=== PATIENT | male | born 1965 | race Caucasian/White ===

== ENCOUNTER 2021-01-04 07:38 | Outpatient (REF) | payer BC, SELFPAY ==
[2021-01-04 11:37] LABS: Estimated Average Glucose 91 mg/dL; Hemoglobin A1c % 4.8 %
[2021-01-04 11:42] LABS: Alanine Aminotransferase 23 U/L (0-40); Albumin Level 4.6 g/dL (3.5-5.0); Alkaline Phosphatase 49 U/L (39-117); Anion Gap 16 (12-20); Aspartate Amino Transferase 19 U/L (5-37); Bilirubin Total 0.9 mg/dL (0.0-1.0); Blood Urea Nitrogen 16 mg/dL (9-16); Carbon Dioxide 25 mmol/L (22-29); Chloride 102 mmol/L (96-108); Estimated Glomerular Filt Rate > 60; Glucose Fasting 103 mg/dL (60-99); Potassium 3.9 mmol/L (3.3-5.1); Sodium 139 mmol/L (135-145); Total Protein 7.3 g/dL (6.5-8.0)
== END 2021-01-04 07:39 | disposition home or self-care (01) ==
LOC: HO.HMGCLDS 07:38
PROVIDERS: PCP Internal Medicine; Visit Provider Internal Medicine
DX: R73.01 Impaired fasting glucose (principal)
CPT/HCPCS: 36415; 80053; 83036

== ENCOUNTER 2021-09-13 08:14 | Outpatient (REF) | payer BC, SELFPAY ==
[2021-09-13 11:51] LABS: Hematocrit 43.7 % (42.0-52.0); Hemoglobin 15.3 g/dl (14.0-18.0); Mean Corpuscular Hemoglobin 31.5 pg (27.0-33.0); Mean Corpuscular Volume 89.9 fL (80.0-98.0); Mean Platelet Volume 10.7 fL (9.4-12.4); Platelet Count 183 X10*3/uL (160-400); Red Blood Count 4.86 X10*6/uL (4.60-5.80); White Blood Count 6.2 X10*3/uL (4.8-10.8)
[2021-09-13 12:17] LABS: Alanine Aminotransferase 28 U/L (0-40); Albumin Level 4.5 g/dL (3.5-5.0); Alkaline Phosphatase 47 U/L (39-117); Anion Gap 14 (12-20); Aspartate Amino Transferase 19 U/L (5-37); Bilirubin Total 0.7 mg/dL (0.0-1.0); Blood Urea Nitrogen 11 mg/dL (9-16); Calcium 9.1 mg/dL (8.4-10.2); Carbon Dioxide 23 mmol/L (22-29); Chloride 106 mmol/L (96-108); Cholesterol 177 mg/dL; Estimated Glomerular Filt Rate > 60; Glucose Fasting 118 mg/dL (60-99); HDL Cholesterol 42 mg/dL; LDL Cholesterol Calculated 112 mg/dl; Sodium 139 mmol/L (135-145); Total Protein 7.3 g/dL (6.5-8.0); Triglycerides 118 mg/dL
[2021-09-13 12:40] LABS: TSH reflex Free T4 1.62 uIU/mL (0.32-4.0)
== END 2021-09-13 08:15 | disposition home or self-care (01) ==
LOC: HO.HMGCLDS 08:14
PROVIDERS: PCP Internal Medicine; Visit Provider Internal Medicine
DX: F41.1 Generalized anxiety disorder (principal); I10 Essential (primary) hypertension; R73.01 Impaired fasting glucose; Z98.890 Other specified postprocedural states
CPT/HCPCS: 36415; 80053; 80061; 84443; 85027

== ENCOUNTER 2021-11-11 14:15 | Outpatient (REF) | payer BC, SELFPAY ==
[2021-11-11 15:36] LABS: Hematocrit 43.7 % (42.0-52.0); Mean Corpuscular HGB Conc 34.3 g/dl (31.0-36.0); Mean Corpuscular Hemoglobin 31.2 pg (27.0-33.0); Mean Corpuscular Volume 90.9 fL (80.0-98.0); Mean Platelet Volume 9.7 fL (9.4-12.4); Platelet Count 206 X10*3/uL (160-400); Red Blood Count 4.81 X10*6/uL (4.60-5.80); Red Cell Distribution Width 12.8 % (11.0-16.0); White Blood Count 6.6 X10*3/uL (4.8-10.8)
[2021-11-11 15:58] LABS: Alanine Aminotransferase 29 U/L (0-40); Albumin Level 4.5 g/dL (3.5-5.0); Alkaline Phosphatase 65 U/L (39-117); Anion Gap 14 (12-20); Aspartate Amino Transferase 33 U/L (5-37); Bilirubin Total 0.6 mg/dL (0.0-1.0); Blood Urea Nitrogen 11 mg/dL (9-16); C Reactive Protein 3.62 mg/dL (< or = 0.50); Calcium 9.4 mg/dL (8.4-10.2); Carbon Dioxide 28 mmol/L (22-29); Chloride 103 mmol/L (96-108); Cholesterol 160 mg/dL; Estimated Glomerular Filt Rate > 60; Glucose Fasting 99 mg/dL (60-99); HDL Cholesterol 47 mg/dL; LDL Cholesterol Calculated 97 mg/dl; Potassium 4.8 mmol/L (3.3-5.1); Sodium 140 mmol/L (135-145); Total Protein 7.5 g/dL (6.5-8.0); Triglycerides 83 mg/dL
[2021-11-11 16:19] LABS: TSH reflex Free T4 2.34 uIU/mL (0.32-4.0)
== END 2021-11-11 14:16 | disposition home or self-care (01) ==
LOC: HO.LAB 14:15
PROVIDERS: PCP Internal Medicine; Referring Provider Internal Medicine; Visit Provider Nurse Practitioner
DX: Z00.00 Encounter for general adult medical examination without abnormal findings (principal); K52.9 Noninfective gastroenteritis and colitis, unspecified; K57.92 Diverticulitis of intestine, part unspecified, without perforation or abscess without bleeding; R19.7 Diarrhea, unspecified; I10 Essential (primary) hypertension; F41.1 Generalized anxiety disorder; R73.01 Impaired fasting glucose; Z98.890 Other specified postprocedural states
CPT/HCPCS: 36415; 80053; 80061; 81479; 82397; 83520; 84443; 85027; 86140; 88346; 88350

== ENCOUNTER 2021-11-12 09:42 | Outpatient (REF) | payer BC, SELFPAY ==
[2021-11-12 11:30] LABS: Appearance Urine CLEAR; Color Urine YELLOW; Glucose Urine UA NEG (NEG); Leukocyte Esterase Urine TRACE (NEG); Nitrite Urine NEG (NEG); PH 5.5 (5.0-8.0); Specific Gravity - Urine 1.025 (1.005-1.025); Urine Blood NEG (NEG); Urine Ketones NEG (NEG); Urine Protein NEG (NEG-TRACE)
[2021-11-12 11:44] LABS: RBC Urine 0 /HPF (0); Urine Talc Crystals TRACE /LPF; WBC Urine 0-2 /HPF (0-4)
[2021-11-12 12:15] LABS: CDiff Gene PCR NEGATIVE (Negative)
[2021-11-12 12:43] LABS: Leukocytes Stool Qualitative NEGATIVE (NEGATIVE)
== END 2021-11-12 09:43 | disposition home or self-care (01) ==
LOC: HO.HMGCLNP 09:42
PROVIDERS: Visit Provider Internal Medicine
DX: R19.7 Diarrhea, unspecified (principal)
CPT/HCPCS: 81001; 87045; 87046; 87493; 89055

== ENCOUNTER → 2021-11-26 08:03 | Outpatient (BNVA) | payer BC, SELFPAY | PROVIDERS: PCP Internal Medicine; Referring Provider Internal Medicine; Visit Provider Nurse Practitioner ==

== ENCOUNTER 2021-12-23 08:00 | Outpatient (REF) | payer BC, SELFPAY ==
[2021-12-23 12:08] LABS: Anion Gap 13 (12-20); Blood Urea Nitrogen 18 mg/dL (9-16); Calcium 9.8 mg/dL (8.4-10.2); Carbon Dioxide 26 mmol/L (22-29); Chloride 105 mmol/L (96-108); Estimated Glomerular Filt Rate > 60; Glucose Fasting 97 mg/dL (60-99); Potassium 4.2 mmol/L (3.3-5.1); Sodium 140 mmol/L (135-145)
[2021-12-23 12:09] LABS: Estimated Average Glucose 105 mg/dL; Hemoglobin A1c % 5.3 %
== END 2021-12-23 08:01 | disposition home or self-care (01) ==
LOC: HO.HMGCLDS 08:00
PROVIDERS: PCP Internal Medicine; Visit Provider Internal Medicine
DX: R73.9 Hyperglycemia, unspecified (principal)
CPT/HCPCS: 36415; 80048; 83036

== ENCOUNTER 2021-12-24 12:07 | Day surgery (SDC) | payer BC, SELFPAY ==
[2021-12-13 15:17] VITALS: BMI 26.0
--- NOTE | 2021-12-23 09:49 | HO.ANESPROP2 ---
Documented by User: Elizabeth Dickerson NP 12/23/21 09:50 HPI - Anesthesia Eval Consult details Narrative: 56yo M for Colonoscopy PMFSH Active Problems Active Problems: All Active Problems (Updated 11/25/21 @ 15:34 by Nayeli Feliz MD) Sciatica (Acute) Colitis (Acute) Colon cancer screening (Acute) Diverticulitis (Acute) Diarrhea (Acute) Hyperglycemia (Acute) Hx of colonoscopy (Acute) History of bladder surgery (Acute) Annual physical exam (Acute) HTN (hypertension) (Acute) Grieving (Acute) Anxiety, generalized (Acute) Chronic GERD (Acute) Difficulty sleeping (Acute) Impaired fasting blood sugar (Acute) Past Medical History Medical History (Updated 11/25/21 @ 15:34 by Nayeli Feliz MD) Annual physical exam Diarrhea Diverticulitis HTN (hypertension) Hyperglycemia Sciatica Family History Family History Father Throat cancer Smoker Mother Diabetes mellitus HTN (hypertension) Skin cancer Bladder tumor Brother Diabetes mellitus Amputation of leg ETOH abuse Drug abuse Brother Carpal tunnel syndrome Maternal Grandfather No problems noted. Maternal Grandmother No problems noted. Paternal Grandfather No problems noted. Paternal Grandmother No problems noted. Brother No problems noted. Surgical History Surgical History History of appendectomy History of bladder surgery Hx of colonoscopy Social History Social History Housing: House Alcohol intake: current Alcohol intake frequency: a few times a month Patient Tobacco Use Status: Never used Tobacco e-Cigarette/Vaping Use: Never Used Use of substances other than those prescribed or required for medical reasons: No Are you DNR?: No Advance Directives: No Advance Directives Information Provided: Yes Current occupational status: employed Meds Allergies Allergy/AdvReac Type Severity Reaction Status Date / Time ibuprofen [From Motrin] Allergy Unknown NAUSEA & Verified 11/26/21 08:10 VOMITING, GI upset Home Medications Medication Instructions Recorded Confirmed Last Taken Type melatonin 5 mg capsule mg PO .qhs cap 12/11/20 11/25/21 Unknown History hydrocodone 5 mg-acetaminophen 325 1 tab PO BID PRN 11/11/21 11/25/21 Unknown History mg tablet ondansetron 4 mg disintegrating 0 mg PO 11/11/21 11/25/21 Unknown History tablet Exam Exam Date and Time: December 23, 2021 0949 Height,Weight and Vital Signs: Height 5 ft 11 in Weight 84.822 kg Pertinent Lab Results Pertinent Lab Results: Laboratory Tests 11/11/21 11/11/21 15:21 15:21 WBC 6.6 Hgb 15.0 Hct 43.7 Plt Count 206 Sodium 140 Potassium 4.8 Chloride 103 Carbon Dioxide 28 BUN 11 Creatinine 1.21 Assessment and Plan Assessment Anesthesia Assessment: Chart Reviewed Documented by User: Wm Martel MD 12/24/21 13:48 PMFSH Past Medical History Medical History (Updated 11/25/21 @ 15:34 by Nayeli Feliz MD) Annual physical exam Diarrhea Diverticulitis HTN (hypertension) Hyperglycemia Sciatica Family History Family History Father Throat cancer Smoker Mother Diabetes mellitus HTN (hypertension) Skin cancer Bladder tumor Brother Diabetes mellitus Amputation of leg ETOH abuse Drug abuse Brother Carpal tunnel syndrome Maternal Grandfather No problems noted. Maternal Grandmother No problems noted. Paternal Grandfather No problems noted. Paternal Grandmother No problems noted. Brother No problems noted. Family history of problems with anesthesia: No Surgical History Surgical History History of appendectomy History of bladder surgery Hx of colonoscopy History of Problems with Anesthesia: No Social History Social History Housing: House Alcohol intake: current Alcohol intake frequency: a few times a month Patient Tobacco Use Status: Never used Tobacco e-Cigarette/Vaping Use: Never Used Use of substances other than those prescribed or required for medical reasons: No Are you DNR?: No Advance Directives: No Advance Directives Information Provided: Yes Current occupational status: employed Meds Allergies Allergy/AdvReac Type Severity Reaction Status Date / Time ibuprofen [From Motrin] Allergy Unknown NAUSEA & Verified 11/26/21 08:10 VOMITING, GI upset Home Medications Medication Instructions Recorded Confirmed Last Taken Type melatonin 5 mg capsule mg PO .qhs cap 12/11/20 11/25/21 Unknown History hydrocodone 5 mg-acetaminophen 325 1 tab PO BID PRN 11/11/21 11/25/21 Unknown History mg tablet ondansetron 4 mg disintegrating 0 mg PO 11/11/21 11/25/21 Unknown History tablet Exam Airway Mallampati Class: II TM Dist: >3cm Neck ROM: Full Loose/Missing/Broken Teeth: Yes Heart: [id number] Lungs: cta b/l Assessment and Plan Assessment Anesthesia Assessment: Anesthesia Plan Discussed Final Anesthetic Review Family History of Problems with Anesthesia: No History of Problems with Anesthesia: No NPO: Yes ASA Class: II Final Preanesthetic Review: No Changes in Pt Med Stat, Meds/Allgs Chart Reviewed, Consent Obtained/Reviewed and Anes Risks/Benef Reviewed Patient Risk: Intermediate Procedure Risk: Intermediate Assessment/Block/Sedation in SS: Assess/Block/Sedation-SS Anesthetic Plan Anesthetic Plan: MAC: and Agree w/ Assess. and Plan Disposition: Standard PACU
[2021-12-24 13:05] VITALS: BP 112/73; PULSE 70; RESP 16; TEMP 36.2; O2SAT 98
--- NOTE | 2021-12-24 13:11 | MHC.SHP ---
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 No changes have occurred unless specified.
--- NOTE | 2021-12-24 13:11 | PM.OP ---
Brief Operative Note Date of Service: 12/24/21 Pre-op diagnosis: Colon cancer screening, history of diverticulitis, history of perianal fistulal Post-op diagnosis: other (Diverticulosis, hemorrhoids) Procedure: COLONOSCOPY TILL CECUM WITH BIOPSIES Consent: Indications for the procedure and potential complications of bleeding, perforation, reaction to medications and missed diagnosis were discussed with the patient and informed consent was obtained. Instrument: Olympus PCF H 190 L variable stiffness pediatric colonoscope Monitoring: Vital signs and clinical assessment, intermittent blood pressure monitoring, continuous EKG monitoring, Pulse oximetry and Carbon Dioxide monitoring were done throughout the procedure. Colon withdrawl time was 14 minutes. Procedure: The patient was placed in the left lateral decubitis position and pre-procedure medications were administered. After a digital rectal examination of the ano-rectum, the video colonoscope was inserted into the rectum and advanced through the colon to the cecum. The colonoscope was slowly withdrawn in a retrograde panoramic fashion and the colon mucosa was carefully examined including a retroflexed view of the rectum. Findings and interventions are described below. Procedure Difficulty: Without difficulty Findings: Terminal Ileum: Distal 10 cms was examined and appeared normal Cecum: Normal Ascending Colon: Normal Transverse Colon: Normal Descending Colon: Moderate diverticulosis Sigmoid Colon: Moderate diverticulosis Rectum: Normal Ano-rectum: Moderate internal hemorrhoids Colon preparation: Excellent Impression and Post Procedure Diagnosis: Colonoscopy Findings: No polyps were detected. Normal TI. Random biopsies were obtained from the right and left colon to check for microscopic colitis/IBD Moderate diverticulosis seen in the left colon Moderate hemorrhoids on retroflexed exam. Plan: Await pathology results Patient has an appointment on 01/07/22 in the GI Clinic with Peggy Osorio NP . Repeat Colonoscopy interval based on path results - in 3-5 years if polyps are adenomatous and 10 years if polyps are hyperplastic. Above findings were reviewed with the patient and diverticulosis and diverticulosis Diet handouts were given in the discharge area Surgeon: Leela Turner MD Anesthesia: MAC (Dr Martel) Was an Mechanical Service Representative used for this Procedure?: Yes Mechanical Service Representative: Jackie Yap Estimated blood loss (mL): 0 Pathology: other (A. right colon biopsies, R/O microscopic colitis B. left colon bxs, R/O microscopic colitis) Condition: stable Disposition: PACU
[2021-12-24] MEDS: Lactated Ringers 1,000 ML 100 ML IVCONT (13:29)
--- NOTE | 2021-12-24 13:51 | P.OP_ITS ---
Operative Note Operative Note Date of Service: 12/24/21 Narrative: Pre-op diagnosis: Colon cancer screening, history of diverticulitis, history of perianal fistula Post-op diagnosis:?other (Diverticulosis, hemorrhoids) Procedure: COLONOSCOPY TILL CECUM WITH BIOPSIES Consent: Indications for the procedure and potential complications of bleeding, perforation, reaction to medications and missed diagnosis were discussed with the patient and informed consent was obtained. Instrument: Olympus PCF H 190 L variable stiffness pediatric colonoscope Monitoring: Vital signs and clinical assessment, intermittent blood pressure monitoring, continuous EKG monitoring, Pulse oximetry and Carbon Dioxide monitoring were done throughout the procedure. Colon withdrawl time was 14 minutes. Procedure: The patient was placed in the left lateral decubitis position and pre-procedure medications were administered. After a digital rectal examination of the ano-rectum, the video colonoscope was inserted into the rectum and advanced through the colon to the cecum. The colonoscope was slowly withdrawn in a retrograde panoramic fashion and the colon mucosa was carefully examined including a retroflexed view of the rectum. Findings and interventions are described below. Procedure Difficulty: Without difficulty Findings: Terminal Ileum: Distal 10 cms was examined and appeared normal Cecum:? Normal Ascending Colon:? Normal Transverse Colon:? Normal Descending Colon:? Moderate diverticulosis Sigmoid Colon:? Moderate diverticulosis Rectum:? Normal Ano-rectum:? Moderate internal hemorrhoids Colon preparation: Excellent ? Impression and Post Procedure Diagnosis: Colonoscopy Findings: No polyps were detected. Normal TI. Random biopsies were obtained from the right and left colon to check for microscopic colitis/IBD Moderate diverticulosis seen in the left colon Moderate hemorrhoids on retroflexed exam. Plan: Await pathology results Patient has an appointment on 01/07/22 in the GI Clinic with? Peggy Osorio NP . Repeat Colonoscopy interval based on path results - in 3-5 years if polyps are adenomatous and 10 years if polyps are hyperplastic. Above findings were reviewed with the patient and diverticulosis and diverticulosis Diet handouts were given in the discharge area Surgeon: Leela Turner MD Anesthesia:?MAC (Dr Martel) Was an Over The Road Driver used for this Procedure?:?Yes Over The Road Driver:?Jackie Yap Estimated blood loss (mL):?0 Pathology:?other (A. right colon biopsies, R/O microscopic colitis? B. left colon bxs, R/O microscopic colitis) Condition:?stable Disposition:?PACU
[2021-12-24 14:26] VITALS: BP 110/72; PULSE 66; RESP 16; TEMP 36.3; O2SAT 97
[2021-12-24 14:41] VITALS: BP 131/74; PULSE 62; RESP 16; TEMP 36.3; O2SAT 98
== END 2021-12-24 15:24 | disposition home or self-care (01) ==
PROVIDERS: PCP Internal Medicine; Visit Provider Internal Medicine Gastroenterology
PROC: 0DJD8ZZ Inspection of Lower Intestinal Tract, Via Natural or Artificial Opening Endoscopic (ICD-10-PCS; CPT 45378; principal; 2021-12-24 13:50)
DX: Z12.11 Encounter for screening for malignant neoplasm of colon (principal); Z87.19 Personal history of other diseases of the digestive system; K57.30 Diverticulosis of large intestine without perforation or abscess without bleeding; K64.8 Other hemorrhoids; K52.9 Noninfective gastroenteritis and colitis, unspecified; M54.30 Sciatica, unspecified side; I10 Essential (primary) hypertension; R73.9 Hyperglycemia, unspecified; Z79.899 Other long term (current) drug therapy; Z88.8 Allergy status to other drugs, medicaments and biological substances
CPT/HCPCS: 45380; 88305

== ENCOUNTER → 2022-01-07 08:26 | Outpatient (BNVA) | payer BC, SELFPAY | PROVIDERS: PCP Internal Medicine; Referring Provider Internal Medicine; Visit Provider Nurse Practitioner | DX: Z13.89 Encounter for screening for other disorder (principal) ==

== ENCOUNTER 2022-02-08 07:00 | Outpatient (RCR) | payer BC, SELFPAY ==
--- NOTE | 2021-12-01 13:52 | MHC.PT.EP ---
[facility] [place] Office [place] Office [place] Office [address] Yue Sutton [address] [phone] F: [phone] F: [phone] F: [phone] F: [phone] Physical Therapy Plan of Care Date of Evaluation: Date of Surgery: n/a Diagnosis: sciatica Assessment: Patient is a 55 year old R handed male who presents with s/s consistent with low back pain. 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 Patient past medical history includes diverticulitis, low back pain, cancer, and knee pain. Current impairments include pain, posture, ROM, strength, activity tolerance, body mechanics, and functional mobility. Functional limitations include decreased ability to transfer, walk, lift, squat, sleep, and negotiate stairs. Patient is motivated with good rehab potential. Skilled PT will address impairments and functional limitations in order to achieve goals. Frequency and Duration: The patient will be seen 2x/week for 5 weeks Short Term Goals: I with HEP - 2weeks centralized s/s - 3 weeks Amb with no gait deviation - 3 weeks Fdc Goals: Restore PLOF - 5 weeks Oswestry 16% or less - 5 weeks Max pain with ADLs 2/10 - 5 weeks Treatment Plan: Modalities to reduce pain, spasms and effusion. Manual therapy to restore motion and function. Therapeutic exercise to improve strength and flexibility. Neuromuscular re-education for posture and balance. Therapeutic activities to return to functional activities of daily living. Electronically signed by: Yaya Grant, PT Please sign and return to therapist. Thank you for your referral.
--- NOTE | 2022-06-30 08:55 | MHC.PT.DC ---
[facility] [place] Office [place] Office [place] Office [address] Yue Sutton [address] [phone] F: [phone] F: [phone] F: [phone] F: [phone] Physical Therapy Discharge Report Diagnosis: sciatica Date of Surgery: n/a Date of Evaluation: 12/01/21 Date of Discharge: 02/20/22 Treatments to Date: 13 Cancellations to Date: No Shows to Date: Discharge Status: Improved Function Independent with HEP Discharge Summary: 02/08/22: Roc attempted TM jogging today. he had some R sided hip discomfort that caused him to stop. we performed some hip flexor stretching and resumed TM jogging with mild success. we discussed attempting at home and follow up in 2 weeks via phone call to discern best next steps. 02/01/22: minor hip pain to start resolved with intervention. we held on TM jogging today and will attempt in 1 week, then follow up in 2-3 weeks barring setback. 01/27/22: pt with no new s/s. he is progressing well and is appropriate to initiated jogging NV on TM. we have been steadily progressing hip and core strength with no adverse reactions. 01/25/22: pt progressing well overall with very few s/s since trip. We reviewed educational topics and HEP. Continue 2 more visits then HEP For 2-3 weeks 01/12/22: pt I with stretching and strength HEP. No new s/s today. we discussed upcoming flight and ways to manage 5 hour flight. we will assess status upon return . 01/10/22: pt progressing well overall. s/s on L side today. this has not been the case in the past. we will monitor this going forward. 01/06/22: pt progressing well with less s/s and improved ability to perform daily tasks. educated on symmetrical standing/sitting postures. no s/s in LE at this time. 01/03/22: pt with increased low back tenderness today. we will assess this next visit and proceed as indicated, TENS if needed. 12/30/21: pt has been progressing with less LE symptoms. responding well to manual intevention + stretching. we will continue with this at this time. 12/27/21: pt progressing well symptomatically. no s/s in foot. able to ambulate with symmetrical mechanics after initial start. continue to progress with core/hip strength. 12/23/21: reduced pain overall. improved gait. compliant with HEP. Continue to progress as tolerated. 12/20/21: pt responding well overall to treatment. improving flexibility. no s/s in foot today. still ambulates with asymmetrical gait pattern. we will address this NV . 12/16/21: pt responded well to manual intervention with s/s eliminated from LE and solely in spine. we will continue to assess response and educate on centralization of s/s. 12/13/21: pt with reduced radicular s/s today.. described as intermittently mild in foot over the weekend. we progressed with extension based ex. encouraged continued stretching and frequent change of positions at home. 12/09: Pt reports the education has been a significant help; reports increased iraj for HH chores with activity modifications; Pt presented with R LE radiating dai and L foot n/t; these symptoms improved and centralized with extension based activities. He was progressed with lumbar stabs which felt good. 12/06: Pr returns reporting initial exercises went well, no new complaints. Pt reports sitting for duration, performing kitchen chores and walking for duration with bring on LE Sx; today he presented with some peripheral Sx which was improved by Prone activities; sacral and lumbar P-A as well as sitting with lumbar roll. significant time spent in postural/ functional education as well as centralization vs peripheralization with exercises and activity. Pt receptive. No adverse effects; better post Tx. Patient is a 55 year old R handed male who presents with s/s consistent with low back pain. 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 Patient past medical history includes diverticulitis, low back pain, cancer, and knee pain. Current impairments include pain, posture, ROM, strength, activity tolerance, body mechanics, and functional mobility. Functional limitations include decreased ability to transfer, walk, lift, squat, sleep, and negotiate stairs. Patient is motivated with good rehab potential. Skilled PT will address impairments and functional limitations in order to achieve goals. Electronically signed by: Yaya Grant, PT Please sign and return to therapist. Thank you for your referral.
== END 2022-06-30 08:59 | disposition home or self-care (01) ==
LOC: HO.PTCHIC 07:00
PROVIDERS: PCP Internal Medicine; Visit Provider Internal Medicine
DX: M54.30 Sciatica, unspecified side (principal)
CPT/HCPCS: 97110; 97140; 97162; 97530

== ENCOUNTER 2022-06-01 16:18 | Outpatient (REF) | payer OTHER, BC, SELFPAY ==
--- NOTE | ~2022-06-01 | XR_ITS ---
EXAMINATION: RIGHT SHOULDER 3 VIEWS RIGHT KNEE 3 VIEWS CLINICAL INFORMATION: Pain COMPARISON: None TECHNIQUE: As above nonweightbearing FINDINGS: Moderate degeneration of the right AC joint. Minimal spurring glenohumeral joint. No deformity. No radiopaque loose body or focal bony lesion. No scapular abnormality. Right lung apex clear. Right knee imaging demonstrates no effusion. Hypertrophic ossification of the interosseous membrane proximally. No acute deformity. XR/XR knee RT 3V IMPRESSION: Chronic findings as above.
--- NOTE | ~2022-06-01 | XR_ITS ---
EXAMINATION: RIGHT SHOULDER 3 VIEWS RIGHT KNEE 3 VIEWS CLINICAL INFORMATION: Pain COMPARISON: None TECHNIQUE: As above nonweightbearing FINDINGS: Moderate degeneration of the right AC joint. Minimal spurring glenohumeral joint. No deformity. No radiopaque loose body or focal bony lesion. No scapular abnormality. Right lung apex clear. Right knee imaging demonstrates no effusion. Hypertrophic ossification of the interosseous membrane proximally. No acute deformity. XR/XR shoulder RT min 2V IMPRESSION: Chronic findings as above.
== END 2022-06-01 16:19 | disposition home or self-care (01) ==
LOC: HO.HMGCX 16:18
PROVIDERS: PCP Internal Medicine; Visit Provider Family Medicine
DX: M25.511 Pain in right shoulder (principal); M25.561 Pain in right knee
CPT/HCPCS: 73030; 73562

== ENCOUNTER → 2022-06-06 13:12 | Outpatient (BNVA) | payer OTHER, BC, SELFPAY | PROVIDERS: PCP Internal Medicine; Visit Provider Physician Assistant | DX: S46.011A Strain of muscle(s) and tendon(s) of the rotator cuff of right shoulder, initial encounter (principal) | CPT/HCPCS: 20610; 99202; J1040 ==

== ENCOUNTER 2022-06-28 16:18 | Outpatient (REF) | payer OTHER, SELFPAY ==
--- NOTE | ~2022-06-28 | MR_ITS ---
EXAMINATION: MR SHOULDER WITHOUT CONTRAST, RIGHT CLINICAL INFORMATION: Strain of muscle and tendon of rotator cuff. Patient reports pain, decreased range of motion. COMPARISON: X-ray of the right shoulder May 2022. TECHNIQUE: MRI of the shoulder without contrast was performed on a high-field scanner. FINDINGS: ROTATOR CUFF: Supraspinatus: There is a full-thickness complete insertional/near-insertional tear of the tendon. . The tear begins at the insertion anteriorly and extends slightly obliquely/medially as it propagates posteriorly. Posteriorly, the tear is located 18 mm proximal to the insertion. The tear results in a tendon gap measuring up to 25 mm transverse and measures 2.8 cm anterior to posterior. The tendon is retracted back to the level of the acromioclavicular joint. There is no atrophy or fatty infiltration of the muscle. Infraspinatus: There is some scattered increased signal within the musculotendinous junction and along the proximal tendon compatible with scattered areas of interstitial partial tearing but no measurable defect. No atrophy or fatty infiltration of the muscle. Teres Minor: Mild atrophy and fatty infiltration of the muscle. Tendon intact. Subscapularis: Minimal heterogeneity of the tendon compatible with tendinosis and perhaps small scattered areas of interstitial partial tearing but no measurable defect. Muscle normal. BICEPS: Normal. CORACOACROMIAL ARCH: The undersurface of the acromion is curved with no subacromial spur. There is moderate hypertrophic osteoarthritis of acromioclavicular joint. Bursa: Trace fluid in the subacromial subdeltoid bursa communicating with the joint through the rotator cuff tear. LABRUM/CAPSULE: Normal. GLENOHUMERAL JOINT/MARROW: Normal. MR/MR shoulder RT wo con IMPRESSION: Large full-thickness complete tear of the supraspinatus tendon. No associated atrophy or fatty infiltration of the muscle. Infraspinatus: Minimal interstitial partial tearing at the musculotendinous junction and proximal tendon without any measurable defect. Mild atrophy and fatty infiltration of the teres minor muscle with the tendon intact. Minimal abnormality of the subscapularis tendon compatible with tendinosis and small areas of interstitial partial tearing without any measurable defect. 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
== END 2022-06-28 16:19 | disposition home or self-care (01) ==
LOC: HO.MRI 16:18
PROVIDERS: PCP Internal Medicine; Visit Provider Physician Assistant
DX: S46.011A Strain of muscle(s) and tendon(s) of the rotator cuff of right shoulder, initial encounter (principal)
CPT/HCPCS: 73221

== ENCOUNTER → 2022-07-15 10:13 | Outpatient (BNVA) | payer OTHER, SELFPAY | PROVIDERS: PCP Internal Medicine; Visit Provider Orthopaedic Surgery | DX: M75.101 Unspecified rotator cuff tear or rupture of right shoulder, not specified as traumatic (principal) | CPT/HCPCS: 99212 ==

== ENCOUNTER 2022-07-26 12:03 | Day surgery (SDC) | payer OTHER, SELFPAY ==
--- NOTE | 2022-07-25 08:29 | HO.ANESPROP2 ---
Documented by User: Elizabeth Dickerson NP 07/25/22 08:32 HPI - Anesthesia Eval Consult details Narrative: 56yo M for Right Arthroscopic Rotator Cuff Repair s/p colo 12/2021 with [facility], [facility] Active Problems Active Problems: All Active Problems (Updated 07/15/22 @ 11:12 by Kb Murrieta MD) Rotator cuff tear, right (Acute) Rotator cuff strain (Acute) Right knee pain (Acute) Right shoulder pain (Acute) Numbness and tingling in left hand (Acute) Thumb tendonitis (Acute) Sciatica (Acute) Colon cancer screening (Acute) Diverticulitis (Acute) Diarrhea (Acute) Hyperglycemia (Acute) History of bladder surgery (Acute) Annual physical exam (Acute) HTN (hypertension) (Acute) Grieving (Acute) Anxiety, generalized (Acute) Chronic GERD (Acute) Difficulty sleeping (Acute) Impaired fasting blood sugar (Acute) Past Medical History Medical History Annual physical exam Diarrhea Diverticulitis HTN (hypertension) Hyperglycemia Sciatica Family History Family History Father Throat cancer Smoker Mother Diabetes mellitus HTN (hypertension) Skin cancer Bladder tumor Brother Diabetes mellitus Amputation of leg ETOH abuse Drug abuse Brother Carpal tunnel syndrome Maternal Grandfather No problems noted. Maternal Grandmother No problems noted. Paternal Grandfather No problems noted. Paternal Grandmother No problems noted. Brother No problems noted. 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[employer], rt hand Cognitive needs: No Hearing needs: No Vision needs: Yes Meds Allergies Allergy/AdvReac Type Severity Reaction Status Date / Time ibuprofen [From Motrin] Allergy Unknown NAUSEA & Verified 06/23/22 14:06 VOMITING, GI upset Home Medications Medication Instructions Recorded Confirmed Last Taken Type melatonin 5 mg capsule mg PO .qhs 12/11/20 06/23/22 Unknown History Exam Exam Date and Time: July 25, 2022 0829 Pertinent Lab Results Pertinent Lab Results: Laboratory Tests 11/11/21 12/23/21 15:21 08:08 WBC 6.6 Hgb 15.0 Hct 43.7 Plt Count 206 Sodium 140 Potassium 4.2 Chloride 105 Carbon Dioxide 26 BUN 18 H D Creatinine 1.00 Assessment and Plan Assessment Anesthesia Assessment: Chart Reviewed Final Anesthetic Review Family History of Problems with Anesthesia: No History of Problems with Anesthesia: No Documented by User: Kenn Car MD 07/26/22 14:04 [facility] Past Medical History Medical History Annual physical exam Diarrhea Diverticulitis HTN (hypertension) Hyperglycemia Sciatica Family History Family History Father Throat cancer Smoker Mother Diabetes mellitus HTN (hypertension) Skin cancer Bladder tumor Brother Diabetes mellitus Amputation of leg ETOH abuse Drug abuse Brother Carpal tunnel syndrome Maternal Grandfather No problems noted. Maternal Grandmother No problems noted. Paternal Grandfather No problems noted. Paternal Grandmother No problems noted. Brother No problems noted. 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[employer], rt hand Cognitive needs: No Hearing needs: No Vision needs: Yes Meds Allergies Allergy/AdvReac Type Severity Reaction Status Date / Time ibuprofen [From Motrin] Allergy Unknown NAUSEA & Verified 06/23/22 14:06 VOMITING, GI upset Home Medications Medication Instructions Recorded Confirmed Last Taken Type melatonin 5 mg capsule mg PO .qhs 12/11/20 06/23/22 Unknown History Exam Airway Mallampati Class: II TM Dist: >3cm Neck ROM: Full Loose/Missing/Broken Teeth: No Assessment and Plan Final Anesthetic Review NPO: Yes ASA Class: II Final Preanesthetic Review: No Changes in Pt Med Stat, Meds/Allgs Chart Reviewed, Consent Obtained/Reviewed and Anes Risks/Benef Reviewed Patient Risk: Low Procedure Risk: Low Anesthetic Plan Anesthetic Plan: GA and Regional Block Disposition: Standard PACU
[2022-07-26] VITALS (8 sets, daily range): BP systolic 112–129; BP diastolic 67–84; PULSE 66–89; RESP 16–19; TEMP 36.1–36.8; O2SAT 94–98; BMI 26.2
--- NOTE | 2022-07-26 12:54 | P.BOP_ITS ---
Brief Operative Note Date of Service: 07/26/22 Pre-op diagnosis: Right rtc tear Post-op diagnosis: same Procedure: Right rtc repair with SAD Implants: Smmiller [employer] Shirley helacoil double row ( 4 anchors) Surgeon: Kb Murrieta MD Anesthesia: GETA and regional Was an Medical Office Receptionist used for this Procedure?: Yes Medical Office Receptionist: Cristopher Ulrich Estimated blood loss (mL): 10 IV fluids (mL): 100 Pathology: none sent Condition: stable Disposition: PACU
--- NOTE | 2022-07-26 12:54 | MHC.SHP ---
Pre-Procedural Eval Section A Date of Service: 07/26/22 The patient is an INPATIENT: Yes Changes since office visit: Yes Patient answered all questions; No Cold of Flu in the past 2 weeks, No New Medical Problems and No Changes in Medication The History & Physical has been completed within 30 days and I have reviewed it.: Yes Section B Chief Complaint: Unspecified rotator cuff tear or rupture of right Allergies: Allergies Allergy/AdvReac Type Severity Reaction Status Date / Time ibuprofen [From Motrin] Allergy Unknown NAUSEA & Verified 06/23/22 14:06 VOMITING, GI upset Plan I have reviewed the history and physical and performed a pertinent physical examination on my patient. No changes have occurred unless specified.
[2022-07-26] MEDS: Lactated Ringers 1,000 ML 100 ML IVCONT (13:12)
--- NOTE | 2022-07-26 15:17 | P.OP_ITS ---
Operative Note Operative Note Date of Service: 07/26/22 Narrative: Date of Service: 07/26/22 Pre-op diagnosis: Right rtc tear Post-op diagnosis: same Procedure: Right rtc repair with SAD Implants: Scotryanyaakov debo Watson helacoil double row ( 4 anchors) Surgeon: Kb Murrieta MD Anesthesia: GETA and regional Was an Systems Support Specialist used for this Procedure?: Yes Systems Support Specialist: Cristopher Ulrich Estimated blood loss (mL): 10 IV fluids (mL): 100 Pathology: none sent Condition: stable Disposition: PACU Procedure in detail: Patient was brought to the operating room and placed the the beach chair position. All bony prominences were well padded and the limb was prepped and draped in standard sterile fashion. A time out was called to identify proper site, proper procedure and proper surgeon. IV antibiotics per weight were administered. I began by making a posterolateral stab incision with a 15 blade. A blunt trochar was placed into the glenohumeral joint and I insufflated the joint with saline and a 30 degree arthroscope was placed. I established an outside- in anterior portal just distal to the biceps tendon. I then began my inspection of the glenohumeral joint. The biceps was intact and there was a G1 SLAP tear that I debrided. The labral was largely intact with fraying anterior and posteroinferiorly. Cartialge surfaces were intact. Subscapularis was intact. There was a full thickness undersurface RTC tear. I then removed the trochar and entered the subacromial space. A direct lateral portal was then established and I performed a bursectomy. The cuff was then examined. There was a full thickness tear of the supraspinatus with retraction. Then infraspiantus was intact. The tear was mobile. I placed two medial row double loaded anchors and then brought the suture tape through the medial cuff. I then debrided the bare area down to bleeding bone and, using a cross bridge trapair, brought four limbs to each of two lateral 5.0 anchors. This re- approximated the cuff anatomy near anatomically. I then performed a 5 mm subacromial decompression. Once I was satisfied with the repair final images were captured and I removed all instrumentation. Portals were closed with nylon. Patient was placed in an abduction sling, extubated and brought to the recovery room in stable condition. There were no known complications.
[2022-07-26] MEDS: ondansetron HCL 4 MG/2 ML VIAL IVPUSH (16:15)
== END 2022-07-26 17:02 | disposition home or self-care (01) ==
PROVIDERS: PCP Internal Medicine; Visit Provider Orthopaedic Surgery
PROC: (CPT 29827; principal; 2022-07-26 14:00)
DX: S46.011A Strain of muscle(s) and tendon(s) of the rotator cuff of right shoulder, initial encounter (principal); W19.XXXA Unspecified fall, initial encounter; Y93.9 Activity, unspecified; Y92.9 Unspecified place or not applicable; Y99.8 Other external cause status; I10 Essential (primary) hypertension; R73.9 Hyperglycemia, unspecified; M54.30 Sciatica, unspecified side; Z79.899 Other long term (current) drug therapy; Z88.8 Allergy status to other drugs, medicaments and biological substances; Z98.890 Other specified postprocedural states
CPT/HCPCS: 29827; 29826; C1713; J0171; J0690; J1100; J1170; J2250; J2405; J2550; J2795; J3010

== ENCOUNTER 2022-09-09 11:41 | Outpatient (REF) | payer BC, SELFPAY ==
[2022-09-09 14:07] LABS: MANUAL DIFF FLAG NO
[2022-09-09 14:16] LABS: Basophils Percent Auto 0.4 % (0-2); Eosinophils Absolute Auto 0.3 X10*3/uL (0.0-0.4); Eosinophils Percent Auto 2.3 % (0-4); Hematocrit 45.6 % (42.0-52.0); Hemoglobin 15.2 g/dl (14.0-18.0); Imm Gran Abs Auto 0.07 X10*3/uL (0.00-0.03); Imm Gran Pct Auto 0.6 % (0.0-0.4); Lymphocytes Absolute Auto 2.9 X10*3/uL (1.2-4.9); Lymphocytes Percent Auto 26.9 % (20-40); Mean Corpuscular HGB Conc 33.3 g/dl (31.0-36.0); Mean Corpuscular Hemoglobin 30.3 pg (27.0-33.0); Mean Corpuscular Volume 90.8 fL (80.0-98.0); Mean Platelet Volume 10.4 fL (9.4-12.4); Neutrophils Absolute Auto 6.6 x10*3/uL (2.0-8.3); Neutrophils Percent Auto 60.8 % (45-73); Platelet Count 218 X10*3/uL (160-400); Red Blood Count 5.02 X10*6/uL (4.60-5.80); Red Cell Distribution Width 12.5 % (11.0-16.0); White Blood Count 10.8 X10*3/uL (4.8-10.8)
[2022-09-09 14:47] LABS: Alanine Aminotransferase 57 U/L (0-40); Albumin Level 4.5 g/dL (3.5-5.0); Alkaline Phosphatase 95 U/L (39-117); Anion Gap 16 (12-20); Aspartate Amino Transferase 30 U/L (5-37); Blood Urea Nitrogen 11 mg/dL (9-16); Calcium 9.3 mg/dL (8.4-10.2); Carbon Dioxide 26 mmol/L (22-29); Chloride 103 mmol/L (96-108); Cholesterol 164 mg/dL; Estimated Glomerular Filt Rate > 60; Glucose Fasting 93 mg/dL (60-99); HDL Cholesterol 56 mg/dL; LDL Cholesterol Calculated 84 mg/dl; Potassium 4.2 mmol/L (3.3-5.1); Sodium 141 mmol/L (135-145); Total Protein 7.4 g/dL (6.5-8.0); Triglycerides 124 mg/dL
[2022-09-09 15:42] LABS: PSA,Total (Free>4and<10) 0.71 ng/mL (0.00-4.00)
== END 2022-09-09 11:42 | disposition home or self-care (01) ==
LOC: HO.HMGCLDS 11:41
PROVIDERS: PCP Internal Medicine; Visit Provider Internal Medicine
DX: Z00.00 Encounter for general adult medical examination without abnormal findings (principal); Z12.5 Encounter for screening for malignant neoplasm of prostate; I10 Essential (primary) hypertension
CPT/HCPCS: 36415; 80053; 80061; 84153; 85025

== ENCOUNTER 2022-09-13 09:51 | Outpatient (REF) | payer BC, SELFPAY ==
[2022-09-14 13:31] LABS: Adenovirus F 40/41 Not Detected (Not Detect.); Astrovirus Not Detected (Not Detect.); Campylobacter Not Detected (Not Detect.); Cryptosporidium Not Detected (Not Detect.); Cyclospora cayetanensis Not Detected (Not Detect.); E. coli EAEC Not Detected (Not Detect.); E. coli EPEC Not Detected (Not Detect.); E. coli ETEC Detected (Not Detect.); E. coli STEC Not Detected (Not Detect.); Entamoeba histolytica Not Detected (Not Detect.); Giardia lamblia Not Detected (Not Detect.); Norovirus GI/GII Not Detected (Not Detect.); Plesiomonas shigelloides Not Detected (Not Detect.); Rotavirus A Not Detected (Not Detect.); Salmonella Not Detected (Not Detect.); Sapovirus Not Detected (Not Detect.); Shigella sp./EIEC Not Detected (Not Detect.); Vibrio Not Detected (Not Detect.); Vibrio Cholerae Not Detected (Not Detect.); Yersinia enterocolitica Not Detected (Not Detect.)
== END 2022-09-13 09:52 | disposition home or self-care (01) ==
LOC: HO.HMGCLDS 09:51
PROVIDERS: PCP Internal Medicine; Visit Provider Internal Medicine
DX: R19.7 Diarrhea, unspecified (principal)
CPT/HCPCS: 87177; 87209; 87507

== ENCOUNTER 2022-09-15 11:17 | Outpatient (REF) | payer OTHER, BC, SELFPAY ==
--- NOTE | 2022-09-15 09:00 | EMG_ITS ---
Bilateral median and ulnar motor and sensory studies were performed. Bilateral radial sensory studies were performed and paraspinal muscles were tested with a needle. IMPRESSION: 1. Mild bilateral median neuropathy across carpal tunnel. 2. Mild bilateral ulnar neuropathy across cubital tunnel. MD HARMONY Fuentes/SARAH / [id number]
== END 2022-09-15 11:18 | disposition home or self-care (01) ==
LOC: HO.NEURO 11:17
PROVIDERS: PCP Internal Medicine; Visit Provider Orthopaedic Surgery
DX: G56.03 Carpal tunnel syndrome, bilateral upper limbs (principal); R20.0 Anesthesia of skin; R20.2 Paresthesia of skin
CPT/HCPCS: 95886; 95911

== ENCOUNTER 2022-09-19 19:32 | Outpatient (REF) | payer BC, SELFPAY ==
--- NOTE | ~2022-09-19 | MR_ITS ---
EXAMINATION: MR LUMBAR SPINE WITHOUT CONTRAST CLINICAL INFORMATION: Left leg numbness, pain, and weakness COMPARISON: MRI lumbar spine 01/10/2017 TECHNIQUE: MRI of the lumbar spine was obtained using routine sequences without contrast. FINDINGS: Lumbar straightening. No significant spondylolisthesis.. No suspicious marrow signal or focal osseous lesion. The vertebral body heights are maintained. Degenerative disc space height loss at L5-S1.. The conus medullaris terminates at the level of L1. The distal spinal cord is normal in appearance. The cauda equina nerve roots appear normal. No significant abnormalities of the paraspinal musculature.. Limited evaluation of the intra-abdominal structures without significant abnormalities. The abdominal aorta is of normal contour and caliber. SPINAL LEVELS: L1-L2: No significant spinal canal or neuroforaminal narrowing. Minimal disc bulge L2-L3: No significant spinal canal or neuroforaminal narrowing. Broad-based disc bulge and left lateral annular fissures L3-L4: No significant spinal canal or neuroforaminal narrowing. Mild facet arthropathy, broad-based disc bulge with left annular fissure. L4-L5: Shallow disc bulge and mild facet arthropathy. Stable mild right greater than left neural foraminal narrowing. No significant spinal canal stenosis. L5-S1: No significant spinal canal or neuroforaminal narrowing. Small central protrusion with annular fissure. Mild facet arthropathy. MR/MR lumbar spine wo con IMPRESSION: Mild lumbar spondylosis as detailed above appears stable compared to MRI from 2017. Persistent left lateral annular fissures at L3-L4 and L4-L5. No significant spinal canal stenosis or high-grade neural foraminal narrowing.
== END 2022-09-19 19:33 | disposition home or self-care (01) ==
LOC: HO.MRI 19:32
PROVIDERS: Visit Provider Internal Medicine
DX: M54.30 Sciatica, unspecified side (principal)
CPT/HCPCS: 72148

== ENCOUNTER → 2022-10-17 10:53 | Outpatient (BNVA) | payer BC, SELFPAY | PROVIDERS: PCP Internal Medicine; Visit Provider Physician Assistant | DX: Z13.89 Encounter for screening for other disorder (principal) ==

== ENCOUNTER → 2022-12-16 12:53 | Outpatient (BNVA) | payer BC, SELFPAY | PROVIDERS: PCP Internal Medicine; Visit Provider Physician Assistant | DX: Z13.89 Encounter for screening for other disorder (principal) ==

== ENCOUNTER 2023-01-03 08:22 | Outpatient (REF) | payer BC, SELFPAY ==
[2023-01-03 12:34] LABS: Anion Gap 11 (12-20); Blood Urea Nitrogen 12 mg/dL (9-16); Calcium 8.9 mg/dL (8.4-10.2); Carbon Dioxide 29 mmol/L (22-29); Chloride 107 mmol/L (96-108); Estimated Glomerular Filt Rate > 60; Glucose Fasting 114 mg/dL (60-99); Potassium 4.9 mmol/L (3.3-5.1); Sodium 142 mmol/L (135-145)
[2023-01-03 12:38] LABS: Erythrocyte Sedimentation Rate 1 MM/HR (0-15)
[2023-01-03 13:07] LABS: Folate 19.1 ng/mL (> or = 4.0); Vitamin B12 1425 pg/mL (200-900)
[2023-01-04 04:24] LABS: Syphilis Screen Reactive (Nonreactive)
[2023-01-05 13:28] LABS: Lyme Abs Screen <0.90 index
[2023-01-09 12:43] LABS: IgA 162 mg/dL (47-310); IgG 1219 mg/dL (600-1640); IgM 76 mg/dL (50-300)
[2023-01-10 12:30] LABS: RPR Quantitative Non-Reactive (Nonreactive); T.Pallidum Particle Agg Test Reactive (Nonreactive)
== END 2023-01-03 08:23 | disposition home or self-care (01) ==
LOC: HO.HMGCLDS 08:22
PROVIDERS: PCP Internal Medicine; Visit Provider Psychiatry & Neurology Neurology
DX: G62.9 Polyneuropathy, unspecified (principal)
CPT/HCPCS: 36415; 80048; 82607; 82746; 82784; 85652; 86334; 86592; 86617; 86618; 86780

== ENCOUNTER 2023-01-11 14:00 | Outpatient (RCR) | payer OTHER, SELFPAY ==
--- NOTE | 2022-08-01 11:43 | MHC.PT.EP ---
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 PRESENTS POD #5 FOR ORTHOPEDIC FOLLOW UP AND PT EVALUATION. UPON EXAM HE DEMONSTRATES THE EXPECTED IMPAIRMENTS OF DECREASED ROM, DECREASED STRENGTH, ALTERED POSTURE AND POSITIONING, INCREASED UPPER TRAP GUARDING, AND INCREASED PAIN AND EDEMA. FUNCTIONAL LIMITATIONS INCLUDE DECREASED ABILITY TO PERFORM HOMEMAKING AND SELF-CARE TASKS, DECREASED ABILITY TO PERFORM PUSHING, PULLING, LIFTING AND REACHING. INABILITY TO DRIVE AND PERFORM WORK TASKS, DECREASED PARTICIPATION IN COMMUNITY AND RECREATIONAL ACTIVITIES AND DISRUPTED SLEEP. THE PT IS A GOOD CANDIDATE FOR SKILLED PT DUE TO AGE, POTENTIAL REMEDIATION OF IMPAIRMENTS, TYPICAL DISEASE/CONDITION PROGRESSION AND PROGNOSIS, COMORBIDITIES, AND MOTIVATION. PT WOULD BENEFIT FROM TAILORED PROGRAM OF THERAPEUTIC ACTIVITIES, FUNCTIONAL TRAINING,, POSTURAL EDUCATION, NEUROMUSCULAR RE-EDUCATION, AND MODALITIES NEEDED. Frequency and Duration: The patient will be seen 2 X WEEK FOR 12 WEEKS Short Term Goals: INITIATE HEP AND PROMOTE SELF MANAGEMENT OF SYMPTOMS Health And Wellness Coach Goals: FULL, PAIN FREE ROM FULL UE STRENGTH, PAIN FREE TO PERFORM COMPUTER AND WORK TASKS WITHOUT RESTRICTION AND PAIN NO GREATER THAN 2/[address] OBJECT AT MINIMUM OF 5# INTO CABINET AT SHOULDER HEIGHT TO RETURN TO MODIFIED FITNESS PROGRAM Treatment Plan: Modalities to reduce pain, spasms and effusion. Manual therapy to restore motion and function. Therapeutic exercise to improve strength and flexibility. Neuromuscular re-education for posture and balance. Therapeutic activities to return to functional activities of daily living. Electronically signed by: SAW HANCOCK PT, DPT Please sign and return to therapist. Thank you for your referral.
--- NOTE | 2023-03-20 08:12 | MHC.PT.DC ---
[facility] [place] Office [place] Office [place] Office [address] Yue Sutton [address] [phone] F: [phone] F: [phone] F: [phone] F: [phone] Physical Therapy Discharge Report Diagnosis: S/P RIGHT ROTATOR CUFF REPAIR Date of Surgery: 07/27/22 Date of Evaluation: 08/01/22 Date of Discharge: Treatments to Date: 38 Cancellations to Date: 0 No Shows to Date: 0 Discharge Status: Achieved Goals Improved Function Independent with HEP Discharge Summary: 01/11/23: pt progressed well over the course of skilled PT. he has maintained appropriate compliance and motivation throughout the course of skilled PT. he has seen good progress in all facets of PT and is appropriate to d/c to his HEP at this time. 01/05/23: pt with min to no discomfort. we have been able to continue with steady progression throughout. booster in arm today but this posed no disruption to treatment. 01/03/23: pt continues to progress well. we will continue to build strength and pursue gains in ROM to improve function. 12/22/22: progressing well on current program. needs encouraged not to push through pain still at times. 12/15/22: responding well to overhead strength focus. cupboard, weight ball, AROM flexion all pain free. 12/13/22: continuing to progress cuff and overhead strength. no adverse reactions today. we will re-assess strength and ROM needs nv 12/09/22: pt has been improving strength and comfort with overhead activities. no adverse reactions otherwise. 12/06/22: pt progressing well with skilled PT. no adverse reactions. reduced pain with overhead reaching. compliant with HEP. 12/01/22: continues progress with continued focus on overhead strength/ROM, cuff strength and ROM with attentiveness to proper mechanics. 11/29/22: pt progressed well with skilled PT. some ant tenderness today resolved with STM. 11/24/22: pt has been experiencing improved strength, progressing with overhead reaching activities. we will continue to progress as tolerated. 11/22/22: pt with no new s/s. abduction to 157 today. significantly improved in response to HEP. 11/17/22: pt AROM flexion, scaption, ER and IR are all improving. No adverse reactions from above. We continue to review HEP each visit. 11/15/22: AAROM and AROM improving in IR, abduction. continue to progress as tolerated. discussed how to proceed with HEP strength focus. 11/08/22: pt progressing well. added ER/abd/IR stretching to HEP again with emphasis. continue to progress as tolerated. 11/03/22: Pt has been progressing well over the course of skilled PT. He has been compliant with HEP and attendance. He has good rehab potential and motivation. He still has impairments of pain, posture, strength, ROM and functional activities resulting in functional limitations including reaching overhead, to side, push ups, lifting, carrying, pushing and pulling. Pt would likely benefit from skilled PT to address impairments and functional limitations but continuing 2x/week for 8 more weeks. At that time, we will plan to d/c to HEP pending any unforeseen setbacks or circumstances. Goals have been updated to accommodate. 11/01/22: pt has been compliant with HEP. we will progress cuff strength Nv. 10/27/22: continued with similar program. no adverse reactions. pt has been having improved ROM and strength. we will update HEP NV. 10/25/22: pt has been progressing well with skilled PT. ROM improving. strength improving. less pain with ADLs as well. pt did note currently in PT for back with some shoulder pain as a result of back treatment there. Pt has been feeling better overall with progression. reduced pain overall. we will progress HEP NV with focus on scap and cuff strength. Electronically signed by: Yaya Grant, PT Please sign and return to therapist. Thank you for your referral.
== END 2023-03-20 09:14 | disposition home or self-care (01) ==
LOC: HO.PTCHIC 14:00
PROVIDERS: Visit Provider Physician Assistant
DX: M75.101 Unspecified rotator cuff tear or rupture of right shoulder, not specified as traumatic (principal)
CPT/HCPCS: 97110; 97112; 97140; 97161; 97530

== ENCOUNTER 2023-01-25 09:57 | Outpatient (REF) | payer BC, SELFPAY ==
[2023-01-25 11:44] LABS: HIV AB/AG Nonreactive (Nonreactive); HIV Num 1 0.06 S/CO (0.00-0.99)
== END 2023-01-25 09:58 | disposition home or self-care (01) ==
LOC: HO.LAB 09:57
PROVIDERS: PCP Internal Medicine; Visit Provider Psychiatry & Neurology Neurology
DX: Z11.4 Encounter for screening for human immunodeficiency virus [HIV] (principal); G62.9 Polyneuropathy, unspecified
CPT/HCPCS: 36415; 87389

== ENCOUNTER 2023-02-27 10:25 | Outpatient (REF) | payer BC, SELFPAY ==
[2023-03-01 04:39] LABS: ~HepC Num1 0.11 S/CO (0.00-0.79); ~Hepatitis C Antibody Nonreactive (Nonreactive)
[2023-03-02 11:29] LABS: Venous Lead 1.7 mcg/dL (<3.5)
== END 2023-02-27 10:26 | disposition home or self-care (01) ==
LOC: HO.LAB 10:25
PROVIDERS: PCP Internal Medicine; Visit Provider Internal Medicine
DX: G62.9 Polyneuropathy, unspecified (principal); A53.0 Latent syphilis, unspecified as early or late
CPT/HCPCS: 36415; 83655; 86803

== ENCOUNTER → 2023-03-08 13:01 | Outpatient (BNVA) | payer BC, SELFPAY | PROVIDERS: PCP Internal Medicine; Visit Provider Internal Medicine | DX: A53.0 Latent syphilis, unspecified as early or late (principal) | CPT/HCPCS: 90471; J0561 ==

== ENCOUNTER → 2023-03-15 13:00 | Outpatient (BNVA) | payer BC, SELFPAY | PROVIDERS: PCP Internal Medicine; Visit Provider Internal Medicine | DX: A53.0 Latent syphilis, unspecified as early or late (principal) | CPT/HCPCS: 90471; J0561 ==

== ENCOUNTER → 2023-03-20 12:54 | Outpatient (BNVA) | payer BC, SELFPAY | PROVIDERS: PCP Internal Medicine; Visit Provider Orthopaedic Surgery ==

== ENCOUNTER 2023-03-22 12:58 | Outpatient (AMB) | payer BC, SELFPAY ==
--- NOTE | 2023-03-22 13:48 | A.OFFVIS_ITS ---
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 Maternal Grandmother No problems noted. Paternal Grandfather No problems noted. Paternal Grandmother No problems noted. Brother No problems noted. 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[employer], rt hand Cognitive needs: No Hearing needs: No Vision needs: Yes Physical Exam Vital Signs: Last Vital Signs Pulse 87 03/22/23 13:49 BP 130/82 03/22/23 13:49 Pulse Ox 96 03/22/23 13:49 BMI result Body Mass Index 27.5 Office Meds penicillin G benzathine Performing Provider: Andreea Harrison MD Administered by: Lucrecia Marquez on 03/22/23 13:56 Dose Route Admin Location Lot Number Expiration Date [place] [employer] 2.4 mmu IM RGM [id number] 03/22/23 25750-761-66 [employer] Assessment & Plan Assessment & Plan (1) 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
[2023-03-22 13:49] VITALS: BP 130/82; PULSE 87; O2SAT 96; BMI 27.5
== END 2023-03-22 14:49 | disposition home or self-care (01) ==
LOC: HO.HID 12:58
PROVIDERS: PCP Internal Medicine; Visit Provider Internal Medicine
DX: A53.0 Latent syphilis, unspecified as early or late (principal)
CPT/HCPCS: 99211

== ENCOUNTER → 2023-03-22 12:58 | Outpatient (BNVA) | payer BC, SELFPAY | PROVIDERS: PCP Internal Medicine; Visit Provider Internal Medicine | DX: A53.0 Latent syphilis, unspecified as early or late (principal) | CPT/HCPCS: 90471; J0561 ==

== ENCOUNTER 2023-05-10 09:44 | Outpatient (REF) | payer BC, SELFPAY ==
[2023-05-10 13:05] LABS: Appearance Urine Clear; Color Urine Yellow; Glucose Urine UA Negative (Negative); Leukocyte Esterase Urine Negative (Negative); Nitrite Urine Negative (Negative); PH 5.5 (5.0-9.0); Urine Blood Negative (Negative); Urine Ketones Negative (Negative); Urine Protein Negative (Neg-Trace)
[2023-05-10 13:10] LABS: Bacteria Urine None Seen (None Seen); Hyaline Casts Urine 0-2 /LPF (0-2); RBC Urine 0-2 /HPF (0-2); Squamous Epithelial Cell Urine 0-2 /HPF (0-2); WBC Urine 0-5 /HPF (0-5)
[2023-05-10 13:19] LABS: MANUAL DIFF FLAG NO
[2023-05-10 13:31] LABS: Basophils Percent Auto 0.4 % (0-2); Eosinophils Absolute Auto 0.3 X10*3/uL (0.0-0.4); Eosinophils Percent Auto 3.3 % (0-4); Imm Gran Abs Auto 0.04 X10*3/uL (0.00-0.03); Imm Gran Pct Auto 0.5 % (0.0-0.4); Lymphocytes Absolute Auto 2.4 X10*3/uL (1.2-4.9); Lymphocytes Percent Auto 31.8 % (20-40); Mean Corpuscular HGB Conc 34.1 g/dl (31.0-36.0); Mean Corpuscular Hemoglobin 30.8 pg (27.0-33.0); Mean Corpuscular Volume 90.3 fL (80.0-98.0); Mean Platelet Volume 10.5 fL (9.4-12.4); Monocytes Absolute Auto 0.7 X10*3/uL (0.1-1.2); Monocytes Percent Auto 8.6 % (2-11); Neutrophils Absolute Auto 4.3 x10*3/uL (2.0-8.3); Neutrophils Percent Auto 55.4 % (45-73); Platelet Count 183 X10*3/uL (160-400); Red Blood Count 4.87 X10*6/uL (4.60-5.80); White Blood Count 7.7 X10*3/uL (4.8-10.8)
[2023-05-10 13:39] LABS: Estimated Average Glucose 100 mg/dL; Hemoglobin A1c % 5.1 %
[2023-05-10 13:55] LABS: Alanine Aminotransferase 27 U/L (0-40); Albumin Level 4.4 g/dL (3.5-5.0); Alkaline Phosphatase 49 U/L (39-117); Anion Gap 17 (12-20); Aspartate Amino Transferase 23 U/L (5-37); Bilirubin Total 0.9 mg/dL (0.0-1.0); Blood Urea Nitrogen 14 mg/dL (9-16); Carbon Dioxide 22 mmol/L (22-29); Chloride 105 mmol/L (96-108); Estimated Glomerular Filt Rate > 60; Glucose Random 109 mg/dL (60-115); Sodium 140 mmol/L (135-145); Total Protein 7.2 g/dL (6.5-8.0)
== END 2023-05-10 09:45 | disposition home or self-care (01) ==
LOC: HO.HMGCLDS 09:44
PROVIDERS: PCP Internal Medicine; Visit Provider Internal Medicine
DX: I10 Essential (primary) hypertension (principal); R73.9 Hyperglycemia, unspecified
CPT/HCPCS: 36415; 80053; 81001; 83036; 85025

== ENCOUNTER 2023-09-13 12:44 | Outpatient (AMB) | payer BC, SELFPAY ==
[2023-09-13 13:07] VITALS: BP 122/74; PULSE 77; O2SAT 96; BMI 26.5
--- NOTE | 2023-09-13 13:07 | MHC.PC.OV ---
Vital Signs 09/13/23 13:07 Height 5 ft 11 in Weight 190 lb BMI 26.5 BP 122/74 Blood Pressure Location Lt brachial Position Sitting Pulse 77 Pulse Source Pulse Oximeter Pulse Oximetry (%) 96 Oxygen Delivery Method Room Air Intake Visit Reasons: Annual PE Intake Note: Pt is here today for PE. Allergies ibuprofen [From Motrin] Allergy (Unknown, Verified 09/13/23 13:07) NAUSEA & VOMITING, GI upset Tobacco use date assessed: 09/13/23 Dental Screening Dental Screen Date: 09/13/23 Did you have a dental visit in the last 12 months?: Yes Did you have a dental problem in the last 6 months where you did not have access to dental care?: No Was dental information given to patient?: Patient has dentist HPI Annual PE HPI Details Pt presents for PE. Pt f/u with neurology at [facility] for chronic L foot pain and sciatica and will have EMG done. 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 Maternal Grandmother No problems noted. Paternal Grandfather No problems noted. Paternal Grandmother No problems noted. Brother No problems noted. 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 1. Little interest or pleasure in doing things: not at all 2. Feeling down, depressed, or hopeless: not at all 3. Trouble falling or staying asleep, or sleeping too much: not at all 4. Feeling tired or having little energy: not at all 5. Poor appetite or overeating: not at all 6. Feeling bad about yourself - or that you are a failure or have let yourself or your family down: not at all 7. Trouble concentrating on things, such as reading the newspaper or watching television: not at all 8. Moving or speaking so slowly that other people could have noticed. Or the opposite - being so fidgety or restless that you have been moving around a lot more than usual: not at all 9. Thoughts that you would be better off or of hurting yourself in some way: not at all Total score: 0 Depression Screening Interpretation: Negative Depression Screening Done: Yes [id number] - PHQ-9 Billing: Patient declined-do not bill Source: Developed by Drs. Omer Addison, Huong Craig, Asif Walker and colleagues, with an educational antonio from [employer]. Thrive Questionnaire Date Thrive assessed: 09/13/23 I am a: Patient What is your living situation today?: I have a steady place to live Within the past 12 months, did the food you bought not last and you didn't have the money to get more?: Never true Within the past 12 months, did you worry whether your food would run out before you got money to buy more?: Never true Do you have trouble paying for medicines?: No Do you have trouble getting transportation to medical appointments?: No Do you have trouble paying your heating and electricity bill?: No Do you have trouble taking care of your child, family member or friend?: No Do you have trouble with day-to-day activities such as bathing, preparing meals, shopping, managing finances, etc.?: No Are you currently unemployed and looking for a job?: No Are you interested in more education?: No AUDIT C Alcohol Use Questionnaire (AUDIT-C) 1. How often do you have a drink containing alcohol?: Monthly or less 2. How many drinks containing alcohol do you have on a typical day when you are drinking?: 1 or 2 3. How often do you have six or more drinks on one occasion?: Never Total Score: 1 GARRICK-7 AMB Questionnaire GARRICK-7 Date GARRICK - 7 assessed: 09/13/23 Feeling nervous, anxious, or on edge: 0 = Not at all Not being able to stop or control worryin = Not at all Worrying too much about different things: 0 = Not at all Trouble relaxin = Not at all Being so restless that it is hard to sit still: 0 = Not at all Becoming easily annoyed or irritable: 0 = Not at all Feeling afraid as if something awful might happen: 0 = Not at all Total GARRICK-7 score (0-4 normal; 5-9 mild; 10-14 moderate; 15-21 severe): 0 Source: Developed by Drs. Omer Addison, Huong Craig, Asif Walker and colleagues, with an educational antonio from [employer]. Review of Systems Const All systems reviewed & are unremarkable except as noted in HPI and below Reports no additional complaints Eyes Reports no additional complaints ENT Reports no additional complaints Card Reports no additional complaints Resp Reports no additional complaints GI Reports no additional complaints Reports no additional complaints Physical exam (Primary Care) Vital Signs: Last Vital Signs Pulse 77 09/13/23 13:07 BP 122/74 09/13/23 13:07 Pulse Ox 96 09/13/23 13:07 Oxygen Delivery Method Room Air 09/13/23 13:07 BMI result Body Mass Index 26.5 Tobacco/Smoking Status: Tobacco use Status Tobacco use date assessed 09/13/23 09/13/23 13:08 Patient Tobacco Use Status Never used Tobacco 09/13/23 13:08 e-Cigarette/Vaping Use Never Used 09/13/23 13:08 PHQ-9: PHQ-9 Score PHQ-9: Total score 8 09/13/23 13:27 Depression Screening Interpretation: Negative Thrive Assessment: Date of Thrive Assessment Date Thrive assessed 09/13/23 09/13/23 13:24 Const General: no acute distress HENMT Head: Yes normal to inspection Ears: hearing grossly normal bilaterally Face and sinus: Yes normal facial exam Mouth: Normal oral and palatal mucosa present Throat: Yes posterior oropharynx normal Eyes General: appearance normal, both eyes and all related structures Neck Neck: Yes no lymphadenopathy and Yes supple Resp Effort & Inspection: normal respiratory effort Auscultation: clear to auscultation bilaterally Cardio Rhythm: regular rhythm Heart sounds: S1 normal heart sound present and S2 normal heart sound present GI Inspection: Yes normal to inspection Palpation (GI): Soft to palpation Percussion: Yes normal to percussion Auscultation: normal bowel sounds Assessment and Plan Assessment & Plan (1) Colon cancer screening: Comment: Negative colonoscopy by Dr. Robertson in 2014, 2021 scope normal in, but patient has a family history of Crohn's disease and a personal history of perirectal fistulas Code(s): Z12.11 - Encounter for screening for malignant neoplasm of colon (2) Hyperglycemia: Code(s): R73.9 - Hyperglycemia, unspecified Plan: cont ADA diet regular exercise (3) HTN (hypertension): Code(s): I10 - Essential (primary) hypertension Plan: cont Olmesartan (4) Annual physical exam: Code(s): Z00.00 - Encounter for general adult medical examination without abnormal findings Plan: well balanced diet, regular exercise discussed, f/u with neurology for sciatica Coding Level of Care Code Est Pt Prev Care 40-64y([id number]) Diagnoses Colon cancer screening Z12.11 Hyperglycemia R73.9 HTN (hypertension) I10 Annual physical exam Z00.00
== END 2023-09-13 13:50 | disposition home or self-care (01) ==
PROVIDERS: Visit Provider Internal Medicine
DX: Z12.11 Encounter for screening for malignant neoplasm of colon (principal); R73.9 Hyperglycemia, unspecified; I10 Essential (primary) hypertension; Z00.00 Encounter for general adult medical examination without abnormal findings
CPT/HCPCS: 99396

== ENCOUNTER 2023-12-22 09:36 | Outpatient (REF) | payer BC, SELFPAY ==
[2023-12-22 10:39] LABS: MANUAL DIFF FLAG NO
[2023-12-22 10:44] LABS: Basophils Percent Auto 0.4 % (0-2); Eosinophils Absolute Auto 0.2 X10*3/uL (0.0-0.4); Eosinophils Percent Auto 2.6 % (0-4); Hematocrit 43.1 % (42.0-52.0); Hemoglobin 14.9 g/dl (14.0-18.0); Imm Gran Abs Auto 0.02 X10*3/uL (0.00-0.03); Imm Gran Pct Auto 0.3 % (0.0-0.4); Lymphocytes Absolute Auto 2.6 X10*3/uL (1.2-4.9); Lymphocytes Percent Auto 37.6 % (20-40); Mean Corpuscular HGB Conc 34.6 g/dl (31.0-36.0); Mean Corpuscular Hemoglobin 30.4 pg (27.0-33.0); Mean Platelet Volume 10.2 fL (9.4-12.4); Monocytes Absolute Auto 0.5 X10*3/uL (0.1-1.2); Monocytes Percent Auto 7.3 % (2-11); Neutrophils Absolute Auto 3.6 x10*3/uL (2.0-8.3); Neutrophils Percent Auto 51.8 % (45-73); Platelet Count 199 X10*3/uL (160-400); White Blood Count 6.9 X10*3/uL (4.8-10.8)
[2023-12-22 10:52] LABS: Estimated Average Glucose 100 mg/dL; Hemoglobin A1c % 5.1 % (<6.0)
[2023-12-22 11:33] LABS: Alanine Aminotransferase 26 U/L (0-40); Albumin Level 4.5 g/dL (3.5-5.0); Alkaline Phosphatase 40 U/L (39-117); Anion Gap 13 (12-20); Aspartate Amino Transferase 21 U/L (5-37); Bilirubin Total 0.9 mg/dL (0.0-1.0); Blood Urea Nitrogen 19 mg/dL (9-16); Calcium 9.4 mg/dL (8.4-10.2); Carbon Dioxide 29 mmol/L (22-29); Chloride 103 mmol/L (96-108); Cholesterol 224 mg/dL (<200); Estimated Glomerular Filt Rate > 60; Glucose Fasting 110 mg/dL (60-99); HDL Cholesterol 45 mg/dL (>40); LDL Cholesterol Calculated 159 mg/dL (<100); Potassium 3.7 mmol/L (3.3-5.1); Sodium 141 mmol/L (135-145); Total Protein 7.3 g/dL (6.5-8.0); Triglycerides 100 mg/dL (<150)
[2023-12-22 11:50] LABS: PSA,Total (Free>4and<10) 0.73 ng/mL (0.00-4.00)
== END 2023-12-22 09:37 | disposition home or self-care (01) ==
LOC: HO.HMGCLDS 09:36
PROVIDERS: PCP Internal Medicine; Visit Provider Internal Medicine
DX: Z00.00 Encounter for general adult medical examination without abnormal findings (principal); Z12.5 Encounter for screening for malignant neoplasm of prostate; R73.9 Hyperglycemia, unspecified; I10 Essential (primary) hypertension
CPT/HCPCS: 36415; 80053; 80061; 83036; 84153; 85025

== ENCOUNTER 2024-04-22 10:00 | Outpatient (AMB) | payer BC, SELFPAY ==
[2024-04-22 10:02] VITALS: BP 126/80; PULSE 91; O2SAT 96; BMI 26.2
--- NOTE | 2024-04-22 10:02 | A.OFFPC_ITS ---
Vital Signs 04/22/24 10:02 Height 5 ft 11 in Weight 188 lb BMI 26.2 BP 126/80 Blood Pressure Location Lt brachial Position Sitting Pulse 91 Pulse Source Pulse Oximeter Pulse Oximetry (%) 96 Oxygen Delivery Method Room Air Intake Visit Reasons: 6 month fu Intake Note: Pt is here today for 6 months follow up visit. Allergies ibuprofen [From Motrin] Allergy (Unknown, Verified 04/22/24 10:06) NAUSEA & VOMITING, GI upset Medication List - Last Reconciled 04/22/24 by Nayeli Feliz MD coenzyme Q10 (Co Q-10) 10 mg PO DAILY melatonin mg PO .qhs mirtazapine 7.5 mg PO BEDTIME [id number] mcg (Centrum Silver Ultra Men's) 1 tab PO DAILY olmesartan 5 mg PO DAILY turmeric-turmeric ext-pepper 900-100-5 mg 3 caps PO DAILY Tobacco use date assessed: 04/22/24 Dental Screening Dental Screen Date: 04/22/24 Did you have a dental visit in the last 12 months?: Yes Did you have a dental problem in the last 6 months where you did not have access to dental care?: No Was dental information given to patient?: Patient has dentist HPI 6 month fu HPI Details Pt presents for HTN, stable on Olmesartan. Pt c/o recurrent GERD, no dysphagia, odynophagia. He has been taking PPI p.r.n. 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 Maternal Grandmother No problems noted. Paternal Grandfather No problems noted. Paternal Grandmother No problems noted. Brother No problems noted. 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 1. Little interest or pleasure in doing things: not at all 2. Feeling down, depressed, or hopeless: not at all 3. Trouble falling or staying asleep, or sleeping too much: several days 4. Feeling tired or having little energy: several days 5. Poor appetite or overeating: not at all 6. Feeling bad about yourself - or that you are a failure or have let yourself or your family down: not at all 7. Trouble concentrating on things, such as reading the newspaper or watching television: not at all 8. Moving or speaking so slowly that other people could have noticed. Or the opposite - being so fidgety or restless that you have been moving around a lot more than usual: not at all 9. Thoughts that you would be better off or of hurting yourself in some way: not at all Total score: 2 Depression Screening Interpretation: Negative Depression Screening Done: Yes Source: Developed by Drs. Omer Addison, Huong Craig, Asif Walker and colleagues, with an educational antonio from [employer]. Thrive Questionnaire Date Thrive assessed: 04/22/24 I am a: Patient What is your living situation today?: I have a steady place to live Within the past 12 months, did the food you bought not last and you didn't have the money to get more?: Never true Within the past 12 months, did you worry whether your food would run out before you got money to buy more?: Never true Do you have trouble paying for medicines?: No Do you have trouble getting transportation to medical appointments?: No Do you have trouble paying your heating and electricity bill?: No Do you have trouble taking care of your child, family member or friend?: No Do you have trouble with day-to-day activities such as bathing, preparing meals, shopping, managing finances, etc.?: No Are you currently unemployed and looking for a job?: No Are you interested in more education?: No Please select the resources that you would like help with: Housing/Snf Currently or been in a relationship where the following occur: No concerns reported THRIVE Score: 0 AUDIT C Alcohol Use Questionnaire (AUDIT-C) 1. How often do you have a drink containing alcohol?: 2-4 times a month 2. How many drinks containing alcohol do you have on a typical day when you are drinking?: 1 or 2 3. How often do you have six or more drinks on one occasion?: Never Total Score: 2 GARRICK-7 AMB Questionnaire GARRICK-7 Date GARRICK - 7 assessed: 04/22/24 Feeling nervous, anxious, or on edge: 1 = Several days Not being able to stop or control worryin = Several days Worrying too much about different things: 0 = Not at all Trouble relaxin = Several days Being so restless that it is hard to sit still: 0 = Not at all Becoming easily annoyed or irritable: 0 = Not at all Feeling afraid as if something awful might happen: 1 = Several days Total GARRICK-7 score (0-4 normal; 5-9 mild; 10-14 moderate; 15-21 severe): 4 Source: Developed by Drs. Omer Addison, Huong Craig, Asif Walker and colleagues, with an educational antonio from [employer]. Review of Systems Const All systems reviewed & are unremarkable except as noted in HPI and below Reports no additional complaints ENT Reports no additional complaints Card Reports no additional complaints Resp Reports no additional complaints GI Reports no additional complaints Reports no additional complaints Physical exam (Primary Care) Vital Signs: Last Vital Signs Pulse 91 04/22/24 10:02 BP 126/80 04/22/24 10:02 Pulse Ox 96 04/22/24 10:02 Oxygen Delivery Method Room Air 04/22/24 10:02 BMI result Body Mass Index 26.2 Tobacco/Smoking Status: Tobacco use Status Tobacco use date assessed 04/22/24 04/22/24 10:09 Patient Tobacco Use Status Never used Tobacco 04/22/24 10:09 e-Cigarette/Vaping Use Never Used 04/22/24 10:09 PHQ-9: PHQ-9 Score PHQ-9: Total score 2 04/22/24 10:18 Depression Screening Interpretation: Negative Thrive Assessment: Date of Thrive Assessment Date Thrive assessed 04/22/24 04/22/24 10:09 Currently or been in a relationship where the following occur: No concerns reported Const General: no acute distress HENMT Head: Yes normal to inspection Throat: Yes posterior oropharynx normal Eyes General: appearance normal, both eyes and all related structures Neck Neck: Yes supple Resp Effort & Inspection: normal respiratory effort Auscultation: clear to auscultation bilaterally Cardio Rhythm: regular rhythm Heart sounds: S1 normal heart sound present and S2 normal heart sound present GI Inspection: Yes normal to inspection Palpation (GI): Soft to palpation Percussion: Yes normal to percussion Assessment and Plan Assessment & Plan (1) Chronic GERD: Comment: Negative EGD in the past Code(s): K21.9 - Gastro-esophageal reflux disease without esophagitis Plan: Continue PPI. (2) HTN (hypertension): Code(s): I10 - Essential (primary) hypertension Plan: cont Olmesartan (3) Hyperlipidemia: Code(s): E78.5 - Hyperlipidemia, unspecified Plan: Low-cholesterol diet regular physical activity discussed with the patient, he will have fasting labs today Orders: Orders Hemoglobin A1c Today I10 - Essential (primary) hypertension, K21.9 - Gastro- esophageal reflux disease without esophagitis Comprehensive Palmer. Panel Fast 5 Months E78.5 - Hyperlipidemia, unspecified, I10 - Essential (primary) hypertension, K21.9 - Gastro-esophageal reflux disease without esophagitis Lipid Panel 5 Months E78.5 - Hyperlipidemia, unspecified, I10 - Essential (primary) hypertension, K21.9 - Gastro-esophageal reflux disease without esophagitis TSH reflex Free T4 5 Months E78.5 - Hyperlipidemia, unspecified, I10 - Essential (primary) hypertension, K21.9 - Gastro-esophageal reflux disease without esophagitis Lipid Panel Today I10 - Essential (primary) hypertension, K21.9 - Gastro- esophageal reflux disease without esophagitis Comprehensive Palmer. Panel Fast Today I10 - Essential (primary) hypertension, K21.9 - Gastro-esophageal reflux disease without esophagitis UA w Microscopic Today E78.5 - Hyperlipidemia, unspecified Complete Blood Count Auto Diff 5 Months E78.5 - Hyperlipidemia, unspecified, I10 - Essential (primary) hypertension, K21.9 - Gastro-esophageal reflux disease without esophagitis Coding Level of Care Code Est Pt Level 4 (59826) Diagnoses Chronic GERD K21.9 HTN (hypertension) I10 Hyperlipidemia E78.5
== END 2024-04-22 10:30 | disposition home or self-care (01) ==
PROVIDERS: PCP Internal Medicine; Visit Provider Internal Medicine
DX: K21.9 Gastro-esophageal reflux disease without esophagitis (principal); I10 Essential (primary) hypertension; E78.5 Hyperlipidemia, unspecified
CPT/HCPCS: 99214

== ENCOUNTER 2024-04-23 09:52 | Outpatient (REF) | payer BC, SELFPAY ==
[2024-04-23 13:15] LABS: Appearance Urine Clear; Color Urine Yellow; Glucose Urine UA Negative (Negative); Leukocyte Esterase Urine Negative (Negative); Nitrite Urine Negative (Negative); PH 6.5 (5.0-9.0); Urine Blood Negative (Negative); Urine Ketones Negative (Negative); Urine Protein Negative (Neg-Trace)
[2024-04-23 13:18] LABS: Bacteria Urine None Seen (None Seen); Hyaline Casts Urine 0-2 /LPF (0-2); RBC Urine 0-2 /HPF (0-2); Squamous Epithelial Cell Urine 0-2 /HPF (0-2); WBC Urine 0-5 /HPF (0-5)
[2024-04-23 13:32] LABS: Alanine Aminotransferase 17 U/L (0-40); Albumin Level 4.2 g/dL (3.5-5.0); Alkaline Phosphatase 47 U/L (39-117); Anion Gap 13 (12-20); Aspartate Amino Transferase 16 U/L (5-37); Bilirubin Total 0.9 mg/dL (0.0-1.0); Blood Urea Nitrogen 12 mg/dL (9-16); Carbon Dioxide 27 mmol/L (22-29); Chloride 102 mmol/L (96-108); Cholesterol 174 mg/dL (<200); Estimated Average Glucose 103 mg/dL; Estimated Glomerular Filt Rate > 60; Glucose Fasting 114 mg/dL (60-99); HDL Cholesterol 52 mg/dL (>40); Hemoglobin A1c % 5.2 % (<6.0); LDL Cholesterol Calculated 94 mg/dL (<100); Potassium 4.2 mmol/L (3.3-5.1); Sodium 138 mmol/L (135-145); Total Protein 6.7 g/dL (6.5-8.0); Triglycerides 140 mg/dL (<150)
== END 2024-04-23 09:53 | disposition home or self-care (01) ==
LOC: HO.HMGCLDS 09:52
PROVIDERS: PCP Internal Medicine; Visit Provider Internal Medicine
DX: I10 Essential (primary) hypertension (principal); K21.9 Gastro-esophageal reflux disease without esophagitis; E78.5 Hyperlipidemia, unspecified; Z13.1 Encounter for screening for diabetes mellitus
CPT/HCPCS: 36415; 80053; 80061; 81001; 83036

== ENCOUNTER → 2024-09-09 12:52 | Outpatient (REF) | payer OTHER, SELFPAY | LOC: HO.SL 12:52 | PROVIDERS: PCP Internal Medicine; Visit Provider Internal Medicine | DX: G47.30 Sleep apnea, unspecified (principal) | CPT/HCPCS: 95806 ==

== ENCOUNTER → 2024-09-09 14:06 | Outpatient (BNV) | payer OTHER, SELFPAY | PROVIDERS: PCP Internal Medicine; Visit Provider Internal Medicine | DX: G47.33 Obstructive sleep apnea (adult) (pediatric) (principal) | CPT/HCPCS: 95806 ==

== ENCOUNTER 2024-10-04 08:49 | Outpatient (AMB) | payer OTHER, SELFPAY ==
[2024-10-04 08:53] VITALS: BP 138/70; BMI 27.3
--- NOTE | 2024-10-04 08:53 | A.OFFVIS_ITS ---
Vital Signs 10/04/24 08:53 Height 5 ft 11 in Weight 196 lb BMI 27.3 BP 138/70 Blood Pressure Location Rt brachial Position Sitting Intake Visit Reasons: INP-JO-ANN Intake Note: Patient presents for JO-ANN Allergies ibuprofen [From Motrin] Allergy (Unknown, Verified 10/04/24 08:56) NAUSEA & VOMITING, GI upset HPI Comments Details: 58 year old male, h/o of bladder cancer in remission is here for f/u of Home Sleep Study. HST SEP 09, 2024: JO-ANN Mild to Moderately Severe, with associated nocturnal hypoxemia and an AVG. O2 SAT below 88% for 17min. JOCELYN 13.5 OAI 9.6 Lowest DESAT 76% He states his partner notices his loud snoring has to wake him to stop snoring. He gasps for air and has apneas. Goes to bed at 10:30pm takes Mirtazapine to help with staying asleep and falling asleep, as he goes to the bathroom 3-4 times a night and has urge incontinence. With temperature changes he cold to hot or hot to cold he has an urge to empty the bladder. He served in the for 37 years and has vivid dreams, abnormal sleep patterns. Denies RLS and hallucinations. He wears glasses and has morning headaches. He exercises daily, his mood and diet are good. 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 Maternal Grandmother No problems noted. Paternal Grandfather No problems noted. Paternal Grandmother No problems noted. Brother No problems noted. 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 O2 SAT below 88% for 17min. JOCELYN 13.5 OAI 9.6 Lowest DESAT 76% Assessment & Plan Assessment & Plan (1) Nocturia more than twice per night: Code(s): R35.1 - Nocturia Category: Medical (2) JO-ANN (obstructive sleep apnea): Code(s): G47.33 - Obstructive sleep apnea (adult) (pediatric) Category: Medical Plan JO-ANN: Obstructive Sleep Apnea Moderate to Severe. Practice good sleep hygiene and daily CPAP use is emphasized per HST evaluation on 2023. supervisory civil engineer Equipment from [facility], use nightly at least 4 hours or more daily for best outcomes and to optimize therapy. Nocturia PT- Evaluate and treat for pelvic floor strengthening exercises, limiting fluid and caffeine 2-4 hours prior to bedtime. Will trial him on Oxybutynin chloride 2.5mg PO daily for two months. Will f/u in 4 months to evaluate sleep, call the clinic with any concerns or questions. Orders: Orders PT Evaluation and Treatment Today R35.1 - Nocturia Medications: New oxybutynin chloride 2.5 mg PO DAILY 30 tabs 1RF Nocturia R35.1 - Nocturia Coding Level of Care Code New Pt Level 4 (96623) Diagnoses Nocturia more than twice per night R35.1 JO-ANN (obstructive sleep apnea) G47.33 Time Spent (min) 45 Comment Sleep Evaluation and Nocturia Sleep Questionnaire Difficulty falling asleep: Yes Difficulty staying asleep?: Yes Number of arousals: 3-4 for bathroom Snoring: Yes Witnessed apneas: Yes Gasping arousals: Yes Nocturia: Yes GERD: Yes Vivid dreams: Yes Acting out dreams: Yes Abnormal behavior in sleep: Yes Abnormal movements in sleep: Yes Morning headaches: Yes Excessive daytime sleepiness: Yes Daytime naps: Yes Restless legs: No Hallucinations: No Sleep paralysis: No Drop attacks: No Sleep Study: Yes (Sep 09, 2024) CPAP: No
--- OUTSIDE RECORDS SUMMARY | 2024-10-04 09:04 | XMS_ITS | Continuity of Care Document ---
Author Name [facility] Organization [facility] Care Team Providers Care Jacker Feeder Name Role Phone [facility] Unavailable Unavailable Problems Combined list of problems from [facility] and [facility] facilities. It does not include entries that were removed or entered in error. Problem Status Onset Date Problem Type Date of Resolution Comments Source Personal history of malignant neoplasm of bladder Active 03/29/20 16 Condition [facility] Incision and drainage of perirectal abscess Inactive 06/13/19 97 Condition Jun 26, 1997 Entered By: JONATHON WALTER Comment: on [id number] [facility] Perianal abscess Inactive 06/13/19 97 Condition [facility] Acute appendicitis Active Condition [facility] Appendicitis * (ICD-9-CM 541.) Active Condition [facility] Attention deficit disorder of childhood without mention of hyperactivity (ICD-9- Active Condition [facility] ATTN DEFIC NONHYPERACT Active Condition [facility] CERVICALGIA Active Condition [facility] Low Back Pain Active Condition [facility] PROLONGED PTSD Active Condition 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 It does not include entries that were removed or entered in error. Substance Category Reaction Severity Reaction type Status Date Reported Comments Source BEE STINGS Propensity to adverse reaction (finding) active 5 [facility] ibuprofen Propensity to adverse reactions to drug GI Reaction Active 2 [facility] LACTOSE Propensity to adverse reactions to substance (finding) active 5 [facility] MOTRIN Propensity to adverse reactions to drug (finding) active 8 [facility] MOTRIN (IBUPROFEN) Drug allergy (disorder) GI Reaction active 2 [facility] Immunizations Combined list of available immunizations from the Department of Defense and Veterans Affairs facilities. Immunization Series Date Given Administered By Site Reaction Lot Number CVX Code Drug Credit Front Office Developer Status Comments Source influenza, injectable, quadrivalent- pf 2021 [id number] 150 GlaxoSmithKli ne complet ed influenza , injectabl e, quadrival ent-pf 07/11/22 Given Ambulat ory Pharmac y influenza, injectable, quadrivalent- pf 2021 [id number] 150 GlaxoSmithKli ne complet ed influenza , injectabl e, quadrival ent-pf 07/11/22 Given Ambulat ory Pharmac y SARS-CoV-2 (COVID-19) mRNA-Bivalent 2021 [id number] 229 complet ed SARS-CoV- 2 (COVID-19 ) mRNA-Biva lent 06/19/22 Given Ambulat ory Pharmac y SARS-CoV-2 (COVID-19) mRNA-Bivalent 2021 [id number] 229 complet ed SARS-CoV- 2 (COVID-19 ) mRNA-Biva lent 06/19/22 Given Ambulat ory Pharmac y COVID Vaccine Moderna 2021 [id number] 207 complet ed COVID Vaccine Moderna 10/21/21 Given Ambulat ory Pharmac y COVID Vaccine Moderna 2021 [id number] 207 complet ed COVID Vaccine Moderna 10/21/21 Given Ambulat ory Pharmac y influenza, injectable, quadrivalent 2020 [id number] 158 GlaxoSmithKli ne complet ed influenza , injectabl e, quadrival ent 06/24/21 Given Ambulat ory Pharmac y influenza, injectable, quadrivalent 2020 [id number] 158 GlaxoSmithKli ne complet ed influenza , injectabl e, quadrival ent 06/24/21 Given Ambulat ory Pharmac y COVID Vaccine Moderna 2020 [id number] 207 complet ed COVID Vaccine Moderna 12/04/20 Given Ambulat ory Pharmac y COVID Vaccine Moderna 2020 [id number] 207 complet ed COVID Vaccine Moderna 12/04/20 Given Ambulat ory Pharmac y COVID Vaccine Moderna 2020 [id number] 207 complet ed COVID Vaccine Moderna 11/03/20 Given Ambulat ory Pharmac y COVID Vaccine Moderna 2020 [id number] 207 complet ed COVID Vaccine Moderna 11/03/20 Given Ambulat ory Pharmac y influenza, injectable, quadrivalent- pf 2019 [id number] 150 [employer] complet ed influenza , injectabl e, quadrival ent-pf 08/15/20 Given Ambulat ory Pharmac y influenza, injectable, quadrivalent- pf 2019 [id number] 077 150 [employer] complet ed influenza , injectabl e, quadrival ent-pf 08/15/20 Given Ambulat ory Pharmac y influenza, seasonal, injectable-pf 2018 [id number] 140 GlaxoSmithKli ne complet ed influenza , seasonal, injectabl e-pf 07/17/19 Given Ambulat ory Pharmac y INFLUENZA, INJECTABLE, QUADRIVALENT, PRESERVATIVE FREE 2018 150 complet ed Partner: [facility]. Administe red by: MARIA R GALEANO (NSI=[phone]). Partner 5 Lot#: [id number] Mfr: GlaxTookitakiit hKline; Dosage: 0.5 [facility] Influenza, seasonal, injectable, preservative free 1 2018 [id number] 140 [facility] ([facility] complet ed Influenza , seasonal, injectabl e, preservat tayla free DoD tetanus, diphtheria, acellular pertu is 2018 [id number] 115 sanofi pasteur complet ed tetanus, diphtheri a, acellular pertussis 05/12/19 Given Ambulat ory Pharmac y tetanus toxoid, reduced diphtheria toxoid, and acellular pertu is vaccine, adsorbed 4 2018 [id number] 115 Sanofi Pasteur (PMC) complet ed tetanus toxoid, reduced diphtheri a toxoid, and acellular pertussis vaccine, adsorbed DoD zoster vaccine live 2017 [id number] 121 [employer] complet ed zoster vaccine live 06/16/18 Given Ambulat ory Pharmac y zoster vaccine, live 1 2017 [id number] 121 Seqirus (SEQ) comple t ed zoster vaccine, live DoD influenza, seasonal, injectable 2017 [id number] 141 sanofi pasteur complet ed influenza , seasonal, injectabl e 06/14/18 Given Ambulat ory Pharmac y Influenza, seasonal, injectable 1 2017 [id number] 141 Sanofi Pasteur (PMC) complet ed Influenza , seasonal, injectabl e DoD measles virus vaccine 0 2017 05 () Not Given measles virus vaccine DoD rubella virus vaccine 0 2017 06 () Not Given rubella virus vaccine DoD mumps virus vaccine 0 2017 07 () Not Given mumps virus vaccine DoD typhoid Vi capsular polysaccharid e vac 2017 [id number] 101 sanofi pasteur complet ed typhoid Vi capsular polysacch aride vac 02/14/18 Given Ambulat ory Pharmac y typhoid Vi capsular polysaccharid e vaccine 1 2017 [id number] 101 Sanofi Pasteur (PMC) complet ed typhoid Vi capsular polysacch aride vaccine DoD zoster vaccine live 2017 [id number] 03 121 GlaxoSmithKli ne complet ed zoster vaccine live 01/12/18 Given Ambulat ory Pharmac y zoster vaccine, live 1 2017 [id number] 03 121 SmithKline (SKB) complet ed zoster vaccine, live DoD influenza, seasonal, injectable 2016 [id number] 141 [employer] complet ed influenza , seasonal, injectabl e 08/13/17 Given Ambulat ory Pharmac y Influenza, seasonal, injectable 1 2016 [id number] 141 Se[employer] (SEQ) comple t ed Influenza , seasonal, injectabl e DoD influenza, seasonal, injectable-pf 2015 [id number] 140 [employer] complet ed influenza , seasonal, injectabl e-pf 08/14/16 Given Ambulat ory Pharmac y Influenza, seasonal, injectable, preservative free 0 2015 [id number] 140 [employer] (CSL) complet ed Influenza , seasonal, injectabl e, preservat tayla free DoD influenza, seasonal, injectable-pf 2014 [id number] 140 [employer] complet ed influenza , seasonal, injectabl e-pf 07/12/15 Given Ambulat ory Pharmac y Influenza, seasonal, injectable, preservative free 22 2014 [id number] 140 [facility] [employer] ([facility]) complet ed Influenza , seasonal, injectabl e, preservat tayla free DoD influenza, seasonal, injectable-pf 2013 [id number] 140 Novartis Pharmaceutica ls complet ed influenza , seasonal, injectabl e-pf 08/09/14 Given Ambulat ory Pharmac y Influenza, seasonal, injectable, preservative free 21 2013 [id number] 140 Novartis Pharmaceutica l Jeovanny. (NOV) complet ed Influenza , seasonal, injectabl e, preservat tayla free DoD influenza, seasonal, injectable 2012 [id number] [facility] , seasonal, injectabl e 07/27/13 Given Ambulat ory Pharmac y Influenza, seasonal, injectable 1 2012 [id number] 141 [facility] [employer] ([facility]) complet ed Influenza , seasonal, injectabl e DoD influenza, seasonal, injectable-pf 2011 [id number] 140 [facility] complet ed influenza , seasonal, injectabl e-pf 07/22/12 Given Ambulat ory Pharmac y Influenza, seasonal, injectable, preservative free 19 2011 [id number] 140 [facility] [employer] ([facility]) complet ed Influenza , seasonal, injectabl e, preservat tayla free DoD influenza, seasonal, injectable-pf 2010 [id number] 140 Novartis Pharmaceutica ls complet ed influenza , seasonal, injectabl e-pf 06/04/11 Given Ambulat ory Pharmac y influenza, seasonal, injectable 2010 [id number] 141 complet ed influenza , seasonal, injectabl e 06/04/11 Given Ambulat ory Pharmac y Influenza, seasonal, injectable, preservative free 2010 140 Novartis Pharmaceutica l Jeovanny. (NOV) complet ed Influenza , seasonal, injectabl e, preservat tayla free DoD Influenza, seasonal, injectable 1 2010 [id number] 141 Transcribed (TRS) complet ed Influenza , seasonal, injectabl e DoD influenza, seasonal, injectable 2009 141 Novartis Pharmaceutica ls complet ed influenza , seasonal, injectabl e 07/24/10 Given Ambulat ory Pharmac y influenza virus vaccine,split 2009 [id number] P1 15 complet ed influenza virus vaccine,s plit 07/24/10 Given Ambulat ory Pharmac y influenza virus vaccine, split virus (incl. purified surface antigen)-reti red CODE 2 2009 [id number] P1 15 Transcribed (TRS) complet ed influenza virus vaccine, split virus (incl. purified surface antigen)- retired CODE DoD Influenza, seasonal, injectable 0 2009 141 Novartis Pharmaceutica l Jeovanny. (NOV) complet ed Influenza , seasonal, injectabl e DoD Novel influenza-H1N 1-09, injectable 2009 [id number] 1 127 Novartis Pharmaceut[employer] ls complet ed Novel influenza -Y9B3-82, injectabl e 12/02/09 Given Ambulat ory Pharmac y Novel influenza-H1N 1-09, injectable 1 2009 [id number] 1 127 Novartis Pharmaceutica l Jeovanny. (AUG) complet ed Novel influenza -W4M7-43, injectabl e DoD Novel influenza-H1N 1-09, injectable 2009 [id number] 1A 127 complet ed Novel influenza -V2S2-42, injectabl e 12/01/09 Given Ambulat ory Pharmac y Novel influenza-H1N 1-09, injectable 1 2009 [id number] 1A 127 () complet ed Novel influenza -K7F6-09, injectabl e DoD influenza virus vaccine, live 2008 [id number] 111 [employer] comple t ed influenza virus vaccine, live 08/27/09 Given Ambulat ory Pharmac y influenza virus vaccine, live, attenuated, for intranasal use 1 2008 [id number] 111 [employer] (MED) complet ed influenza virus vaccine, live, attenuate d, for intranasa l use DoD tetanus, diphtheria, acellular pertu is 2008 [id number] 115 sanofi pasteur complet ed tetanus, diphtheri a, acellular pertussis 04/18/09 Given Ambulat ory Pharmac y tetanus toxoid, reduced diphtheria toxoid, and acellular pertu is vaccine, adsorbed 1 2008 [id number] 115 Sanofi Pasteur (PMC) complet ed tetanus toxoid, reduced diphtheri a toxoid, and acellular pertussis vaccine, adsorbed DoD influenza virus vaccine,split 2007 [id number] 15 GlaxoSmithKli ne complet ed influenza virus vaccine,s plit 08/23/08 Given Ambulat ory Pharmac y influenza virus vaccine, split virus (incl. purified surface antigen)-reti red CODE 1 2007 [id number] 2AA 15 SmithKline (SK) complet ed influenza virus vaccine, split virus (incl. purified surface antigen)- retired CODE DoD typhoid Vi capsular polysaccharid e vac 2007 [id number] 101 sanofi pasteur complet ed typhoid Vi capsular polysacch aride vac 07/13/08 Given Ambulat ory Pharmac y typhoid Vi capsular polysaccharid e vaccine 1 2007 [id number] 101 Sanofi Pasteur ([facility]) complet ed typhoid Vi capsular polysacch aride vaccine DoD influenza virus vaccine,split 2006 [id number] 15 GlaxoSmithKli ne complet ed influenza virus vaccine,s plit 09/03/07 Given Ambulat ory Pharmac y influenza virus vaccine, split virus (incl. purified surface antigen)-reti red CODE 1 2006 [id number] 15 SmithKline ([facility]) complet ed influenza virus vaccine, split virus (incl. purified surface antigen)- retired CODE DoD influenza virus vaccine,split 2005 [id number] 15 Unknown complet ed influenza virus vaccine,s plit 09/10/06 Given Ambulat ory Pharmac y influenza virus vaccine, split virus (incl. purified surface antigen)-reti red CODE 1 2005 [id number] 15 Other (OTH) complet ed influenza virus vaccine, split virus (incl. purified surface antigen)- retired CODE DoD typhoid vaccine, parenteral 2005 [id number] 41 sanofi pasteur complet ed typhoid vaccine, parentera l 03/11/06 Given Ambulat ory Pharmac y typhoid vaccine, parenteral, other than acetone-kille d, dried 1 2005 [id number] 41 Sanofi Pasteur ([facility]) complet ed typhoid vaccine, parentera l, other than acetone-k illed, dried DoD influenza virus vaccine,split 2004 [id number] 15 sanofi pasteur complet ed influenza virus vaccine,s plit 08/16/05 Given Ambulat ory Pharmac y influenza virus vaccine, split virus (incl. purified surface antigen)-reti red CODE 1 2004 [id number] 15 Sanofi Pasteur (PMC) complet ed influenza virus vaccine, split virus (incl. purified surface antigen)- retired CODE DoD FLU,3 YRS (HISTORICAL) 2004 MARILIN RAMIRES 88 complet ed [facility] influenza virus vaccine, live 2004 [id number] 111 [employer] comple t ed influenza virus vaccine, live 10/16/04 Given Ambulat ory Pharmac y influenza virus vaccine, live, attenuated, for intranasal use 0 2004 [id number] 111 [employer] (MED) complet ed influenza virus vaccine, live, attenuate d, for intranasa l use [facility] typhoid vaccine, parenteral 2003 [id number] 41 sanofi pasteur complet ed typhoid vaccine, parentera l 04/18/04 Given Ambulat ory Pharmac y typhoid vaccine, parenteral, other than acetone-kille d, dried 0 2003 [id number] 41 Sanofi Pasteur ([facility]) complet ed typhoid vaccine, parentera l, other than acetone-k illed, dried [facility] tuberculin purified protein derivative 2003 [id number] 96 sanofi pasteur complet ed tuberculi n purified protein derivativ e 11/15/03 Given Ambulat ory Pharmac y tuberculin purified protein derivative 2003 [id number] 96 sanofi pasteur complet ed tuberculi n purified protein derivativ e 11/15/03 Given Ambulat ory Pharmac y anthrax vaccine 2003 [id number] 24 [employer] complet ed anthrax vaccine 11/15/03 Given Ambulat ory Pharmac y anthrax vaccine 6 2003 [id number] 24 [employer] (MIP) complet ed anthrax vaccine DoD influenza virus vaccine, live 2003 [id number] 111 [employer] comple t ed influenza virus vaccine, live 11/01/03 Given Ambulat ory Pharmac y influenza virus vaccine, live, attenuated, for intranasal use 0 2003 [id number] 111 [employer] (MED) complet ed influenza virus vaccine, live, attenuate d, for intranasa l use [facility] influenza virus vaccine, whole virus 2002 [id number] 16 Novartis Pharmaceutica ls complet ed influenza virus vaccine, whole virus 08/05/03 Given Ambulat ory Pharmac y influenza virus vaccine, whole virus 0 2002 [id number] 16 [employer] (PWJ) complet ed influenza virus vaccine, whole virus DoD vaccinia (smallpox) vaccine 2002 [id number] 75 [facility] complet ed vaccinia (smallpox ) vaccine 12/09/02 Given Ambulat ory Pharmac y anthrax vaccine 2002 [id number] 24 [employer] complet ed anthrax vaccine 12/09/02 Given Ambulat ory Pharmac y meningococcal polysaccharid e (MPSV4) 2002 [id number] 32 sanofi pasteur complet ed meningoco ccal polysacch aride (MPSV4) 12/09/02 Given Ambulat ory Pharmac y anthrax vaccine 5 2002 [id number] 24 [employer] (MIP) complet ed anthrax vaccine DoD meningococcal polysaccharid e vaccine (MPSV4) 0 2002 [id number] 32 Sanofi Pasteur (PMC) complet ed meningoco ccal polysacch aride vaccine (MPSV4) DoD vaccinia (smallpox) vaccine 0 2002 [id number] 75 [facility] ([facility]) complet ed vaccinia (smallpox ) vaccine DoD PNEUMOCOCCAL POLYSACCHARID E PPV23 2001 33 complet ed [facility] yellow fever vaccine 2001 [id number] 37 sanofi pasteur complet ed yellow fever vaccine 09/14/02 Given Ambulat ory Pharmac y yellow fever vaccine 0 2001 [id number] 37 Sanofi Pasteur (PMC) complet ed yellow fever vaccine DoD tuberculin purified protein derivative 2001 [id number] 96 sanofi pasteur complet ed tuberculi n purified protein derivativ e 09/09/02 Given Ambulat ory Pharmac y tuberculin purified protein derivative 2001 [id number] 96 sanofi pasteur complet ed tuberculi n purified protein derivativ e 09/09/02 Given Ambulat ory Pharmac y influenza virus vaccine, whole virus 2001 [id number] 16 sanofi pasteur complet ed influenza virus vaccine, whole virus 09/09/02 Given Ambulat ory Pharmac y INFLUENZA (HISTORICAL) 2001 88 complet ed [employer] influenza virus vaccine, whole virus 0 2001 [id number] 16 Sanofi Pasteur ([facility]) complet ed influenza virus vaccine, whole virus DoD influenza virus vaccine, whole virus 2000 [id number] 16 sanofi pasteur complet ed influenza virus vaccine, whole virus 09/08/01 Given Ambulat ory Pharmac y influenza virus vaccine, whole virus 0 2000 [id number] 16 Sanofi Pasteur ([facility]) complet ed influenza virus vaccine, whole virus DoD tuberculin purified protein derivative 2000 [id number] 96 [facility] complet ed tuberculi n purified protein derivativ e 01/13/01 Given Ambulat ory Pharmac y tuberculin purified protein derivative 2000 [id number] 96 [facility] complet ed tuberculi n purified protein derivativ e 01/13/01 Given Ambulat ory Pharmac y influenza virus vaccine, whole virus 2000 16 Unknown complet ed influenza virus vaccine, whole virus 10/13/00 Given Ambulat ory Pharmac y INFLUENZA, UNSPECIFIED FORMULATION 2000 88 complet ed [facility] influenza virus vaccine, whole virus 0 2000 16 Unknown (UNK) comple t ed influenza virus vaccine, whole virus [facility] TD(ADULT) UNSPECIFIED FORMULATION 2000 139 complet ed [facility] tuberculin purified protein derivative 1999 [id number] 96 [facility] complet ed tuberculi n purified protein derivativ e 08/15/00 Given Ambulat ory Pharmac y tuberculin purified protein derivative 1999 [id number] 96 [facility] complet ed tuberculi n purified protein derivativ e 08/15/00 Given Ambulat ory Pharmac y anthrax vaccine 1999 [id number] 24 [employer] complet ed anthrax vaccine 10/29/99 Given Ambulat ory Pharmac y anthrax vaccine 4 1999 [id number] 24 [employer] ([facility]) complet ed anthrax vaccine DoD influenza virus vaccine, whole virus 19989925 [id number] 16 [employer] complet ed influenza virus vaccine, whole virus 07/10/99 Given Ambulat ory Pharmac y influenza virus vaccine, whole virus 0 [id number] [id number] 16 [employer] (NATHALIE) complet ed influenza virus vaccine, whole virus DoD anthrax vaccine 1998 24 [employer] complet ed anthrax vaccine 04/16/99 Given Ambulat ory Pharmac y anthrax vaccine 3 1998 [facility] complet ed anthrax vaccine DoD anthrax vaccine 1998 [id number] 24 [employer] complet ed anthrax vaccine 04/02/99 Given Ambulat ory Pharmac y anthrax vaccine 2 1998 [id number] 24 [facility] complet ed anthrax vaccine DoD tuberculin purified protein derivative 1998 [id number] 96 [facility] complet ed tuberculi n purified protein derivativ e 03/17/99 Given Ambulat ory Pharmac y tuberculin purified protein derivative 1998 [id number] 96 [facility] complet ed tuberculi n purified protein derivativ e 03/17/99 Given Ambulat ory Pharmac y typhoid vaccine, live, oral 1998 25 complet ed typhoid vaccine, live, oral 03/16/99 Given Ambulat ory Pharmac y anthrax vaccine 1998 [id number] 24 [employer] complet ed anthrax vaccine 03/16/99 Given Ambulat ory Pharmac y tetanus-dipht h toxoids (Td) adult/adol 1998 09 complet ed tetanus-d iphth toxoids (Td) adult/ado l 03/16/99 Given Ambulat ory Pharmac y tetanus and diphtheria toxoids, adsorbed, preservative free, for adult use (2 Lf of tetanus toxoid and 2 Lf of diphtheria toxoid) 0 1998 09 () complet ed tetanus and diphtheri a toxoids, adsorbed, preservat tayla free, for adult use (2 Lf of tetanus toxoid and 2 Lf of diphtheri a toxoid) DoD anthrax vaccine 1 1998 [id number] 24 [facility] complet ed anthrax vaccine DoD typhoid vaccine, live, oral 0 1998 25 () complet ed typhoid vaccine, live, oral DoD measles/mumps /rubella virus vaccine 1997 [id number] [employer] complet ed measles/m umps/rube lla virus vaccine 09/01/98 Given Ambulat ory Pharmac y measles, mumps and rubella virus vaccine 0 1997 [id number] 03 [employer] (AB) complet ed measles, mumps and rubella virus vaccine DoD influenza virus vaccine, whole virus [id number] 16 [facility] complet ed influenza virus vaccine, whole virus 07/29/98 Given Ambulat ory Pharmac y influenza virus vaccine, whole virus 0 19975857 [id number] 16 [facility] (CON) complet ed influenza virus vaccine, whole virus DoD influenza virus vaccine, whole virus 19966085 [id number] 16 [employer] complet ed influenza virus vaccine, whole virus 08/16/97 Given Ambulat ory Pharmac y influenza virus vaccine, whole virus 0 19963875 [id number] 16 [employer] (Inactive) () complet ed influenza virus vaccine, whole virus DoD hepatitis A adult vaccine 1996 [id number] 6 52 GlaxoSmithKli ne complet ed hepatitis A adult vaccine 05/17/97 Given Ambulat ory Pharmac y hepatitis A vaccine, adult dosage 2 1996 [id number] 6 52 SmithKline (SKB) complet ed hepatitis A vaccine, adult dosage DoD meningococcal polysaccharid e (MPSV4) 19967541 [id number] 32 P[employer] complet ed meningoco ccal polysacch aride (MPSV4) 11/09/96 Given Ambulat ory Pharmac y hepatitis A adult vaccine 19968248 [id number] 52 P[employer]ER complet ed hepatitis A adult vaccine 11/09/96 Given Ambulat ory Pharmac y meningococcal polysaccharid e vaccine (MPSV4) 0 19964428 [id number] 32 [employer]Ayer[employer] (Inactive) ([place]) complet ed meningoco ccal polysacch aride vaccine (MPSV4) DoD hepatitis A vaccine, adult dosage 1 19969741 [id number] 52 [employer] (Inactive) ([place]) complet ed hepatitis A vaccine, adult dosage DoD INFLUENZA (HISTORICAL) 1995 VALERIANO CHANEL 88 complet ed [place] [facility], [facility] typhoid, parenteral, AKD 1994 [id number] 6 53 GlaxoSmithKli ne complet ed typhoid, parentera l, AKD 09/10/95 Given Ambulat ory Pharmac y typhoid vaccine, parenteral, acetone-kille d, dried ([place] ) 2 1994 [id number] 6 53 [facility] (SK) complet ed typhoid vaccine, parentera l, acetone-k illed, dried ([place] ) DoD immune globulin, unspecified formulation 0 1994 14 () complet ed immune globulin, unspecifi ed formulati on DoD hepatitis B adult vaccine 19926752 3746256 43 P[employer]ER complet ed hepatitis B adult vaccine 12/13/92 Given Ambulat ory Pharmac y hepatitis B vaccine, adult dosage 3 19926796 [id number] 43 [employer] (Inactive) ([place]) complet ed hepatitis B vaccine, adult dosage DoD cholera vaccine unspecified formula 19919809 [id number] 26 P[employer]ZER complet ed cholera vaccine unspecifi ed formula 01/11/92 Given Ambulat ory Pharmac y cholera vaccine, unspecified formulation 0 19913630 [id number] 26 [employer] (Inactive) (PR) complet ed cholera vaccine, unspecifi ed formulati on DoD yellow fever vaccine 19900903 [id number] 37 PFIZER complet ed yellow fever vaccine 09/15/91 Given Ambulat ory Pharmac y yellow fever vaccine 0 [id number] 37 Wyeth-Ayerst (Inactive) (PR) complet ed yellow fever vaccine DoD poliovirus vaccine, live, oral 1987 02 complet ed polioviru s vaccine, live, oral 06/24/88 Given Ambulat ory Pharmac y tetanus-dipht h toxoids (Td) adult/adol 1987 09 complet ed tetanus-d iphth toxoids (Td) adult/ado l 06/24/88 Given Ambulat ory Pharmac y trivalent poliovirus vaccine, live, oral 0 1987 02 () complet ed trivalent polioviru s vaccine, live, oral DoD tetanus and diphtheria toxoids, adsorbed, preservative free, for adult use (2 Lf of tetanus toxoid and 2 Lf of diphtheria toxoid) 0 1987 09 () complet ed tetanus and diphtheri a toxoids, adsorbed, preservat tayla free, for adult use (2 Lf of tetanus toxoid and 2 Lf of diphtheri a toxoid) DoD measles/mumps /rubella virus vaccine 1986 03 complet ed measles/m umps/rube lla virus vaccine 01/22/87 Given Ambulat ory Pharmac y measles, mumps and rubella virus vaccine 0 1986 03 () complet ed measles, mumps and rubella virus vaccine DoD Vital Signs Combined list of inpatient and outpatient Vital Signs from Department of Defense and Veterans Affairs, ranging from 12 months to all on record, depending upon the facility. Vital Sign Value Date Comments Source No data available for this section Ambulatory Pharmacy Encounters Combined list of: 1) Encounters from Department of Veterans Affairs facilities going back up to thelast 18 months. 2) Encounters from the Department of Defense facilities going back up to 280 months. Location Location Details Encounter Type Encounter Number Reason For Visit Attending Provider ADM Date DC Date Status Disposition Source [address] [place] [address]([facility] Team A) OUTPATIENT [id number] LOD-ansley dder cancer BETO MARES 01/15 Released w/o Limitations [address] [place] [address]([facility] Team [facility]) [address] [place] [address]([facility]) TELE CONSULT [id number] Notes Entered by: PRERY GONZALEZ 19 Jan 2012 0743 ------- ------- ------- ------- -- GIL HARRINGTON 01/[address] [place] [address]([facility] Team [facility]) [address] [place] [address]([facility] Team [facility]) TELE CONSULT [id number] Notes Entered by: BONITA KIM 07 Mar 2012 0803 ------- ------- ------- ------- -- BONITA Bey 03/[address] [place] [address]([facility]) [address] [place] [address]([facility] Team [facility]) TELE CONSULT [id number] Notes Entered by: BONITA KIM 09 Jul 2012 1254 ------- ------- ------- ------- -- Renew - MICARE request MARIANBETO KERN Lisset 07/09 [facility]) [address] [place] [address]([facility]) TELE CONSULT [id number] Notes Entered by: PERRY GONZALEZ 02 Jan 2013 1116 ------- ------- ------- ------- -- MICARE: Dina KIM BONITA 01/02 [facility]) [address] [place] [address]([facility]) TELE CONSULT [id number] Notes Entered by: PERRY GONZALEZ 18 Jan 2013 1524 ------- ------- ------- ------- -- MICARE: Dina KIM BONITA 01/18 [facility]) [address] [place] [address](Ref erral [facility]ag[facility]) TELE CONSULT [id number] Notes Entered by: BONITA KIM 2013 0756 ------- ------- ------- ------- -- MICARE request for BONITA Ramirez 12/[address] [place] [address](R eferral Managem [facility]) [address] [place] [address](Ref erral [facility]) TELE CONSULT [id number] Notes Entered by: BONITA KIM 25 Apr 2014 1348 ------- ------- ------- ------- -- LOD renewal BONITA KIM 04/25 [facility](R eferral Managem [facility]) [address] [place] [address]([facility]) OUTPATIENT [id number] LOD follow up history of bladder cancer OG RIVAS 04/28 Released w/o Limitations [facility]) [address] [place] [address]([facility]) TELE CONSULT [id number] Notes Entered by: Sg FATIMA 30 Apr 2014 0959 ------- ------- ------- ------- -- Network Results -Urolog y- LE, NORMA T 04/30 [facility]) [facility]) OUTPATIENT [id number] LOD F/U OG RIVAS 03/04 Released w/o Limitations [facility]) [facility]) TELE CONSULT [id number] SENIA KIMHER 05/21 [facility]) [facility]) OUTPATIENT [id number] LOD - F/u referra l to urology LE, NORMA T 03/23 Released w/o Limitations [facility]) [facility]) TELE CONSULT [id number] Notes Entered by: WASHINGTON MOORE 20 May 2016 1532 ------- ------- ------- ------- -- WASHINGTON Segovia 05/20 [facility]) [facility]) TELE CONSULT [id number] Notes Entered by: Daisha LIN 07 Oct 2016 1206 ------- ------- ------- ------- -- LOD Network Results Urology Jun 24 LE, NORMA T 10/07 [facility]) [facility]) OUTPATIENT [id number] LOD - Urology LE, NORMA T 03/23 Released w/o Limitations [facility]) [facility]) OUTPATIENT [id number] f/u LOD-ansley dder cancer WIL ARNETT VERO 06/19 Released w/o Limitations [facility]) [facility]) TELE CONSULT [id number] Notes Entered by: ME JANNY TOPETE 11 Feb 2019 1352 ------- ------- ------- ------- -- Network Results Urology [id number] WIL ARNETT VERO 02/11 [facility]) [facility]) TELE CONSULT [id number] Notes Entered by: GOOD MCBRIDE 30 Jul 2019 1558 ------- ------- ------- ------- -- Dina Barger - KERWIN Maynard 07/30 Immediate Referral [facility]) [facility]) TELE CONSULT [id number] Notes Entered by: SENIA RODRIGUEZ 24 Jan 2020 1010 ------- ------- ------- ------- -- Network Results Uro [id number] WIL ARNETT VERO 01/23 [facility]) [facility]) TELE CONSULT [id number] Notes Entered by: GOOD MCBRIDE 30 Jun 2020 1027 ------- ------- ------- ------- -- Backdat ed MARY Turner 06/30 Other Not Elsewhere Classified [address] [place] [address]([facility]) Procedures Combined list of: 1) Procedures from Department of Veterans Affairs facilities going back up to thelast 18 months, not all VA non-surgical procedures are included; 2) All procedures from the Department of Defense facilities. Procedure Procedure Type Code Date Perfomer Comments Sourc e No data available for this section Ambulatory Pharmacy TELE ASSESS & MGT SRV PROV QUAL NONPHYS HLTH CARE PRO TO EST PAT,PARENT,GUAR D NOT ORIG REL ASSESS & MGT SRV PROV W/IN PREV 7 DAYS NOR LEAD ASSESS & MGT SRV/PX W/IN NXT 24 HR/SOON APT;5-10 MIN MED DIS 06/30/2020 [facility] Non-Physician Phone Call To Patient/Provide r Brief (5-10min) Non-Physician Phone Call To Patient/Provide r Brief (5-10min) [id number] [address]GADO [facility] Social History Combined list of available smoking, tobacco, and other social history from Department of Defense and Veterans Affairs facilities. Social History Type Response Date Comment [facility] e Tobacco smoking status NHIS LIFETIME NON-SMOKER 03/01/2022 [facility] History of tobacco use LIFETIME NON-SMOKER 04/22/2005 [facility] This section is an empty social history section. DoD Assessment and Plan Combined list of future care activities from Department of Defense and Veterans Affairs facilities (e.g., assessment and plan notes, appointments, orders, and referrals). Additional future care activities may be listed in the Plan of Care section. Result Assessment and Plan Date Source Assessment and Plan No data available for this section 10/04/2024 Ambulatory Pharmacy Functional Status Combined list of recent functional and cognitive assessments recorded at Department of Defense and Veterans Affairs (MD).VA Functional [place] Measurement (FIM) Scale: 1 = Total Assistance (Subject = 0% +), 2 = Maximal Assistance (Subject = 25% +), 3 = Moderate Assistance (Subject = 50% +), 4 = Minimal Assistance (Subject = 75% +), 5 = Supervision, 6 = Modified [place] (Device), 7 = Complete [place] (Timely, Safely). Assessment Date/Time Source Assessment Type Assessment Skill Assessment Score Assessment Details No data available for this section
--- OUTSIDE RECORDS SUMMARY | 2024-10-04 09:04 | XMS_ITS ---
Author Name [facility] Organization Unknown History of Medication Use Medication Directions Dispensed Refills Start Date End Date Stat olmesartan 03/16/2024 completed mirtazapine 03/16/2024 completed gabapentin (capsule) 100 mg 03/16/2024 completed Problems Problem Status Onset Date Problem Type Date of Resoluti on Source Acute sinusitis, unspecified active EncounterDiagnosisAct CTMDSX H
== END 2024-10-04 10:03 | disposition home or self-care (01) ==
PROVIDERS: PCP Internal Medicine; Visit Provider Physician Assistant Medical
DX: R35.1 Nocturia (principal); G47.33 Obstructive sleep apnea (adult) (pediatric)
CPT/HCPCS: 99204

== ENCOUNTER → 2024-10-04 08:49 | Outpatient (BNVA) | payer OTHER, SELFPAY | PROVIDERS: PCP Internal Medicine; Visit Provider Physician Assistant Medical | DX: G47.33 Obstructive sleep apnea (adult) (pediatric) (principal); R35.1 Nocturia | CPT/HCPCS: 99202 ==

== ENCOUNTER 2024-11-12 11:09 | Outpatient (AMB) | payer OTHER, SELFPAY ==
[2024-11-12 11:22] VITALS: BP 122/78; PULSE 67; TEMP 37.4; O2SAT 98; BMI 26.6
--- NOTE | 2024-11-12 11:22 | A.OFFPC_ITS ---
Vital Signs 11/12/24 11:22 Height 5 ft 11 in Weight 191 lb BMI 26.6 BP 122/78 Blood Pressure Location Lt brachial Position Sitting Pulse 67 Pulse Source Pulse Oximeter Temp 99.3 F Temp Source Oral Pulse Oximetry (%) 98 Oxygen Delivery Method Room Air Intake Visit Reasons: PE Intake Note: Pt is here today for PE. Allergies oxybutynin Allergy (Intermediate, Verified 11/12/24 11:32) nausea, headaches, blurry vision ibuprofen [From Motrin] Allergy (Unknown, Verified 11/12/24 11:30) NAUSEA & VOMITING, GI upset Medication List - Last Reconciled 11/12/24 by Nayeli Feliz MD candesartan 4 mg PO DAILY coenzyme Q10 (Co Q-10) 10 mg PO DAILY krill oil mg PO melatonin mg PO .qhs mirtazapine 7.5 mg PO BEDTIME up-bmr-ncwrp-B6-skpnqck-ibxqqq 601-50-610-300 mcg (Centrum Silver Ultra Men's) 1 tab PO DAILY Tobacco use date assessed: 11/12/24 Dental Screening Dental Screen Date: 11/12/24 Did you have a dental visit in the last 12 months?: Yes Did you have a dental problem in the last 6 months where you did not have access to dental care?: No Was dental information given to patient?: Patient has dentist HPI PE HPI Details Patient presents for physical. He retired and has been physically active exercising regularly. 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 Maternal Grandmother No problems noted. Paternal Grandfather No problems noted. Paternal Grandmother No problems noted. Brother No problems noted. 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 1. Little interest or pleasure in doing things: not at all 2. Feeling down, depressed, or hopeless: not at all 3. Trouble falling or staying asleep, or sleeping too much: several days 4. Feeling tired or having little energy: not at all 5. Poor appetite or overeating: not at all 6. Feeling bad about yourself - or that you are a failure or have let yourself or your family down: not at all 7. Trouble concentrating on things, such as reading the newspaper or watching television: not at all 8. Moving or speaking so slowly that other people could have noticed. Or the opposite - being so fidgety or restless that you have been moving around a lot more than usual: not at all 9. Thoughts that you would be better off or of hurting yourself in some way: not at all Total score: 1 Depression Screening Interpretation: Negative Depression Screening Done: Yes 91882 - PHQ-9 Billing: Yes Source: Developed by Drs. Omer Addison, Huong Craig, Asif Walker and colleagues, with an educational antonio from [employer]. Thrive Questionnaire Date Thrive assessed: 11/12/24 I am a: Patient What is your living situation today?: I have a steady place to live Within the past 12 months, did the food you bought not last and you didn't have the money to get more?: Never true Within the past 12 months, did you worry whether your food would run out before you got money to buy more?: Never true Do you have trouble paying for medicines?: No Do you have trouble getting transportation to medical appointments?: No Do you have trouble paying your heating and electricity bill?: No Do you have trouble taking care of your child, family member or friend?: No Do you have trouble with day-to-day activities such as bathing, preparing meals, shopping, managing finances, etc.?: No Are you currently unemployed and looking for a job?: No Are you interested in more education?: No Please select the resources that you would like help with: None Currently or been in a relationship where the following occur: No concerns reported THRIVE Score: 0 AUDIT C Alcohol Use Questionnaire (AUDIT-C) 1. How often do you have a drink containing alcohol?: Monthly or less 2. How many drinks containing alcohol do you have on a typical day when you are drinking?: 1 or 2 3. How often do you have six or more drinks on one occasion?: Never Total Score: 1 GARRICK-7 AMB Questionnaire GARRICK-7 Date GARRICK - 7 assessed: 11/12/24 Feeling nervous, anxious, or on edge: 0 = Not at all Not being able to stop or control worryin = Not at all Worrying too much about different things: 0 = Not at all Trouble relaxin = Several days Being so restless that it is hard to sit still: 0 = Not at all Becoming easily annoyed or irritable: 0 = Not at all Feeling afraid as if something awful might happen: 0 = Not at all Total GARRICK-7 score (0-4 normal; 5-9 mild; 10-14 moderate; 15-21 severe): 1 Source: Developed by Drs. Omer Addison, Huong Craig, Asif Walker and colleagues, with an educational antonio from [employer]. GARRICK-7 Assessment Billing GARRICK-7 Assessment Tool: GARRICK-7 Assessment 15731 Review of Systems Const All systems reviewed & are unremarkable except as noted in HPI and below Eyes Reports no additional complaints ENT Reports no additional complaints Card Reports no additional complaints Resp Reports no additional complaints GI Reports no additional complaints Reports no additional complaints Musc Reports no additional complaints Physical exam (Primary Care) Vital Signs: Last Vital Signs Temp 99.3 F 11/12/24 11:22 Pulse 67 11/12/24 11:22 BP 122/78 11/12/24 11:22 Pulse Ox 98 11/12/24 11:22 Oxygen Delivery Method Room Air 11/12/24 11:22 BMI result Body Mass Index 26.6 Tobacco/Smoking Status: Tobacco use Status Tobacco use date assessed 11/12/24 11/12/24 11:36 Patient Tobacco Use Status Never used Tobacco 11/12/24 11:23 e-Cigarette/Vaping Use Never Used 11/12/24 11:23 PHQ-9: PHQ-9 Score PHQ-9: Total score 1 11/12/24 12:06 Depression Screening Interpretation: Negative Thrive Assessment: Date of Thrive Assessment Date Thrive assessed 11/12/24 11/12/24 11:36 Currently or been in a relationship where the following occur: No concerns reported Const General: no acute distress HENMT Head: Yes normal to inspection General nose exam: Normal external nose present Face and sinus: Yes normal facial exam Throat: Yes posterior oropharynx normal Eyes General: appearance normal, both eyes and all related structures Neck Neck: Yes no lymphadenopathy and Yes supple Resp Effort & Inspection: normal respiratory effort Auscultation: clear to auscultation bilaterally Cardio Rhythm: regular rhythm Heart sounds: S1 normal heart sound present and S2 normal heart sound present GI Inspection: Yes normal to inspection Palpation (GI): Soft to palpation Percussion: Yes normal to percussion Auscultation: normal bowel sounds General: Yes Bimanual renal exam normal bilaterally Coding Level of Care Code Est Pt Prev Care 40-64y(58953) Diagnoses JO-ANN (obstructive sleep apnea) G47.33 Colon cancer screening Z12.11 Annual physical exam Z00.00 HTN (hypertension) I10 Additional Codes GARRICK-7 Assessment Billing - GARRICK-7 Assessment Tool: GARRICK-7 Assessment [id number] ([id number]) PHQ-9 - 77313 - PHQ-9 Billing: Yes ([id number]) Assessment & Plan Assessment & Plan (1) JO-ANN (obstructive sleep apnea): Comment: Started on CPAP 10/2024 Code(s): G47.33 - Obstructive sleep apnea (adult) (pediatric) Category: Medical Plan: Patient is started on CPAP he will follow-up with sleep medicine (2) Colon cancer screening: Comment: Negative colonoscopy by Dr. Robertson in 2021 scope normal, but patient has a family history of Crohn's disease and a personal history of perirectal fistulas, f/u with GI Code(s): Z12.11 - Encounter for screening for malignant neoplasm of colon Category: Medical Plan: Follow-up with GI (3) Annual physical exam: Code(s): Z00.00 - Encounter for general adult medical examination without abnormal findings Category: Medical Plan: Balanced diet regular physical activity discussed with the patient (4) HTN (hypertension): Code(s): I10 - Essential (primary) hypertension Category: Medical Plan: Continue current medications , return for a physical in 1 year with a fasting labs before Medications: Refilled candesartan 4 mg PO DAILY 90 tabs 3RF
--- OUTSIDE RECORDS SUMMARY | 2024-11-12 12:02 | XMS_ITS | Encounter Summary ---
Author Organization [facility] Address [address] [place] [address] Care Team Providers Care Senior Software Engineering Manager Name Role Phone Pcp, No Primary Care Provider Unavailabl e Reason for Referral * Imaging (Routine) - Authorized Specialty Diagnoses / Procedures Referred By Contac t Referred To Contact Radiology Diagnoses Acute sinusitis, unspecified Procedures XR PARANASAL SINUSES 1-2 VIEWS Mary Carrero PA-C [address] [place] [id number] Phone: tel: fax: [facility]iology - Central Scheduling [place] Phone: tel: fax: Referral ID Status Reason Start Date Expiration Date Visits Requested Visits Authorized [id number] Authorized Perform Procedure 01/01/2024 12/31/2024 1 1 Encounter Details Date Type Department Care Team ([facility] Contact Info) Description 01/01/2024 Ancillary Orders [facility] Radiology, Outpatient Center (Diag Rad) [address] [place], [place] [id number] Mary Carrero PA-C [address] [place] [phone] Acute sinusitis, unspecified (Primary Dx) Social History Tobacco Use Types Packs/Day Years Used Date Smoking Tobacco: Never Assessed Sex and Gender Information Value Date Recorded Sex Assigned at Not on file Legal Sex Male 3:23 PM EDT Gender Identity Not on file Sexual Orientation Not on file documented as of this encounter Plan of Treatment Not on file documented as of this encounter Results * XR PARANASAL SINUSES 1-2 VIEWS (01/01/2024 3:50 PM EDT) Anatomical Region Laterality Modality Radio Fluoroscop y 01/01/2024 9:33 PM EDT Impressions 01/01/2024 9:36 PM EDT Moderate bilateral mucosal thickening maxillary sinus regions with suspicion of subtle mucosal thickening in the ethmoid sinuses as well. Narrative 01/01/2024 9:36 PM EDT PROCEDURE: ??XR PARANASAL SINUSES 1-2 VIEWS CLINICAL INDICATION: ??Acute sinusitis, unspecified, acute sinusitis///PT states chronic sinusitis mostly to maxillary, ethmoid and frontal sinus areas for many years, right side is worse than left. COMPARISON: None. FINDINGS: Moderate mucosal thickening is present involving the inferior and lateral aspects of both maxillary sinuses without an appreciated air-fluid level. Subtle haziness of the ethmoid sinus region is suspicious for mucosal thickening in this region. The frontal sinuses are poorly developed. Sphenoid sinus is not able to be adequately assessed on the current views which do not include a lateral projection. Symmetric aeration of the mastoid air cells is noted. Overall bone mineral density is considered appropriate. Procedure Note Nick Mi MD - 01/01/2024 PROCEDURE: XR PARANASAL SINUSES 1-2 VIEWS CLINICAL INDICATION: Acute sinusitis, unspecified, acute sinusitis///PTstates chronic sinusitis mostly to maxillary, ethmoid and frontal sinusareas for many years, right side is worse than left. COMPARISON: None. FINDINGS: Moderate mucosal thickening is present involving the inferior and lateralaspects of both maxillary sinuses without an appreciated air-fluid level.Subtle haziness of the ethmoid sinus region is suspicious for mucosalthickening in this region. The frontal sinuses are poorly developed.Sphenoid sinus is not able to be adequately assessed on the current viewswhich do not include a lateral projection. Symmetric aeration of the mastoid air cells is noted. Overall bone mineraldensity is considered appropriate. IMPRESSION: Moderate bilateral mucosal thickening maxillary sinus regions withsuspicion of subtle mucosal thickening in the ethmoid sinuses as well. us Mary Carrero PA-C IMG XR PROCEDURES Final Resu lt documented in this encounter Visit Diagnoses Diagnosis Acute sinusitis, unspecified- Primary Acute sinusitis, unspecified documented in this encounter Care Teams Senior Software Engineering Manager Relationship Specialty Start Date End Date Pcp, No [place] [address] PCP - General 01/01/24 documented as of this encounter
--- OUTSIDE RECORDS SUMMARY | 2024-11-12 12:03 | XMS_ITS | Encounter Summary ---
Author Organization [facility] Address [address] [place] [id number] Care Team Providers Care Instant Potato Processor Name Role Phone Pcp, No Primary Care Provider Unavailabl e Reason for Referral * Imaging (Routine) - Authorized Specialty Diagnoses / Procedures Referred By Contac t Referred To Contact Radiology Diagnoses Pain in left ankle and joints of left foot Procedures XR ANKLE 2 VIEWS LEFT Mary Carrero PA-C [address] [place] [phone] Phone: tel: fax: [facility] Radiology - Central Scheduling [place] Phone: tel: fax: Referral ID Status Reason Start Date Expiration Date Visits Requested Visits Authorized [id number] Authorized Perform Procedure 01/01/2024 12/31/2024 1 1 Encounter Details Date Type Department Care Team ([facility] Contact Info) Description 01/01/2024 Ancillary Orders [facility] Radiology, Outpatient Center (Diag Rad) [address] [place], [place] [id number] Mary Carrero PA-C [address] [place] [phone] Pain in left ankle and joints of left foot (Primary Dx) Social History Tobacco Use Types Packs/Day Years Used Date Smoking Tobacco: Never Assessed Sex and Gender Information Value Date Recorded Sex Assigned at Not on file Legal Sex Male 3:23 PM EDT Gender Identity Not on file Sexual Orientation Not on file documented as of this encounter Plan of Treatment Not on file documented as of this encounter Results * XR ANKLE 2 VIEWS LEFT (01/01/2024 3:57 PM EDT) Anatomical Region Laterality Modality Left Radio Fluoroscop y 01/01/2024 5:01 PM EDT Impressions 01/01/2024 5:02 PM EDT No acute appearing fracture, soft tissue injury, if symptoms persist, follow-up MRI may be helpful. Narrative 01/01/2024 5:02 PM EDT PROCEDURE: ??XR ANKLE 2 VIEWS LEFT CLINICAL INDICATION: ??Pain in left ankle and joints of left foot, pain in left ankle///PT states chronic pain and stiffness to left ankle. Most pain medially. HX of FX 30yrs ago COMPARISON: None. FINDINGS: Left ankle bone alignment maintained on the 2 projections obtained. Mild degenerative, arthritic or perhaps old posttraumatic changes most prominent in the medial aspect of the talus with hyperostosis and subcortical cystic or erosive changes. Soft tissue swelling medially. Procedure Note Omer Smith MD - 01/01/2024 PROCEDURE: XR ANKLE 2 VIEWS LEFT CLINICAL INDICATION: Pain in left ankle and joints of left foot, pain inleft ankle///PT states chronic pain and stiffness to left ankle. Most painmedially. HX of FX 30yrs ago COMPARISON: None. FINDINGS: Left ankle bone alignment maintained on the 2 projections obtained. Mild degenerative, arthritic or perhaps old posttraumatic changes mostprominent in the medial aspect of the talus with hyperostosis andsubcortical cystic or erosive changes. Soft tissue swelling medially. IMPRESSION: No acute appearing fracture, soft tissue injury, if symptoms persist,follow-up MRI may be helpful. us Mary Carrero PA-C IMG XR PROCEDURES Final Resu lt documented in this encounter Visit Diagnoses Diagnosis Pain in left ankle and joints of left foot- Primary Pain in left ankle and joints of left foot documented in this encounter Care Teams Instant Potato Processor Relationship Specialty Start Date End Date Pcp, No [place] [address] PCP - General 01/01/24 documented as of this encounter
--- OUTSIDE RECORDS SUMMARY | 2024-11-12 12:03 | XMS_ITS | Clinical Summary ---
Author Organization [employer] Address [address] [place] [address] Care Team Providers Care Tacker Elastic Band Name Role Phone Pcp, No Primary Care Provider Unavailabl e Social History Tobacco Use Types Packs/Day Years Used Date Smoking Tobacco: Never Assessed Sex and Gender Information Value Date Recorded Sex Assigned at Not on file Legal Sex Male 3:23 PM EDT Gender Identity Not on file Sexual Orientation Not on file Plan of Treatment Health Maintenance Due Date Last Done Comments CT Colonography 1963 Colonoscopy 1963 Colorectal Cancer Screening 1963 FIT-DNA 1963 FIT 1963 FOBT 1963 Hepatitis C Screening 1963 Lipid Panel 1963 Sigmoidoscopy 1963 Annual Physical Exam 1981 Tdap and Td Vaccines Adult 1982 Pneumococcal Vaccine: 50+ Ye ars (1 of 1 - PCV) 2013 Zoster Vaccines (1 of 2) 2013 COVID-19 Vaccine ( - 2023-2 5 season) 2024 Influenza Vaccine (#1) 2024 RSV 60+ (1 - 1-dose 75+ series) 2038 HIB Vaccines Aged Out No longer eligi ble based on patient's age to complete this topic HPV Vaccines Aged Out No longer eligi ble based on patient's age to complete this topic Hepatitis A Vaccines Aged Out No long er eligible based on patient's age to complete this topic IPV Vaccines Aged Out No longer eligi ble based on patient's age to complete this topic Meningococcal Vaccine Aged Out No neeraj gaby eligible based on patient's age to complete this topic Pneumococcal Vaccine: Peds ( 0 to 5 Yrs) and At-Risk Pts (6 to 49 Yrs) Aged Out No lo nger eligible based on patient's age to complete this topic RSV <20 Months Aged Out No longer evan gible based on patient's age to complete this topic Insurance [employer] Care Teams Tacker Elastic Band Relationship Specialty Start Date End Date Pcp, [place] [address] PCP - General 01/01/24
--- OUTSIDE RECORDS SUMMARY | 2024-11-12 12:03 | XMS_ITS | Clinical Summary ---
Author Organization [facility] Address [address] [place] [address] Care Team Providers Care Optic Fibre Drawer Name Role Phone Unavailable Primary Care Provider Unavailabl e Social History Tobacco Use Types Packs/Day Years Used Date Smoking Tobacco: Never Assessed Sex and Gender Information Value Date Recorded Sex Assigned at Not on file Gender Identity Not on file Sexual Orientation Not on file Plan of Treatment Health Maintenance Due Date Last Done Comments DTaP,Tdap,and Td Vaccines (1 - Tdap) 1982 Zoster Vaccines (1 of 2) 2013 Cholesterol Screening (Lipid Panel) 09/11/2022 Colorectal Cancer Screening: Colonoscopy 09/11/2022 Depression Screening 09/11/2022 HIV Screening 09/11/2022 Hepatitis C Screening 09/11/2022 Social Influencers of Health Screening 09/11/2022 COVID-19 Vaccine ( - 2023-2 5 season) 2024 Influenza Vaccine (#1) 2024 RSV Immunization Patients 60 + Years Old (1 - 1-dose 75+ series) 2038 HIB Vaccines Aged Out No longer eligi ble based on patient's age to complete this topic HPV Vaccines Aged Out No longer eligi ble based on patient's age to complete this topic Hepatitis A Vaccines Aged Out No long er eligible based on patient's age to complete this topic Hepatitis B Vaccines Aged Out No long er eligible based on patient's age to complete this topic IPV Vaccines Aged Out No longer eligi ble based on patient's age to complete this topic MMR Vaccines Aged Out No longer eligi ble based on patient's age to complete this topic Meningococcal ACWY Vaccine Aged Out N o longer eligible based on patient's age to complete this topic Pneumococcal Vaccine: Pediat rics (0 to 5 Years) and At-Risk Patients (6 to 64 Years) Aged Out No longer eligible b ased on patient's age to complete this topic RSV Immunization Patients Un marcela 20 months Aged Out No longer eligible b ased on patient's age to complete this topic Varicella Vaccines Aged Out No longer eligible based on patient's age to complete this topic
== END 2024-11-12 12:16 | disposition home or self-care (01) ==
PROVIDERS: PCP Internal Medicine; Visit Provider Internal Medicine
DX: G47.33 Obstructive sleep apnea (adult) (pediatric) (principal); Z12.11 Encounter for screening for malignant neoplasm of colon; Z00.00 Encounter for general adult medical examination without abnormal findings; I10 Essential (primary) hypertension

== ENCOUNTER → 2024-11-12 11:09 | Outpatient (BNVA) | payer OTHER, SELFPAY | PROVIDERS: PCP Internal Medicine; Visit Provider Internal Medicine | DX: Z00.00 Encounter for general adult medical examination without abnormal findings (principal); G47.33 Obstructive sleep apnea (adult) (pediatric); I10 Essential (primary) hypertension | CPT/HCPCS: 96127 ==

== ENCOUNTER 2024-11-27 08:26 | Outpatient (REF) | payer OTHER, SELFPAY ==
--- OUTSIDE RECORDS SUMMARY | 2024-11-27 08:29 | XMS_ITS | Encounter Summary ---
Author Organization [facility] Address [address] [place] [id number] Care Team Providers Care Talent Acquisition Administrator Name Role Phone Pcp, No Primary Care Provider Unavailabl e Reason for Referral * Imaging (Routine) - Authorized Specialty Diagnoses / Procedures Referred By Contac t Referred To Contact Radiology Diagnoses Acute sinusitis, unspecified Procedures XR PARANASAL SINUSES 1-2 VIEWS Mary Carrero PA-C [address] [place] [phone] Phone: tel: fax: [facility] Radiology - Central Scheduling CT Phone: tel: fax: Referral ID Status Reason Start Date Expiration Date Visits Requested Visits Authorized [id number] Authorized Perform Procedure 01/01/2024 12/31/2024 1 1 Encounter Details Date Type Department Care Team ([facility] Contact Info) Description 01/01/2024 Ancillary Orders [facility] Radiology, Outpatient Center (Diag Rad) [address], [address] [place], [place] [address] Mary Carrero PA-C [address] [place] [phone] Acute sinusitis, unspecified (Primary Dx) Social [...] unspecified documented in this encounter Care Teams Talent Acquisition Administrator Relationship Specialty Start Date End Date Pcp, [place] [address] PCP - General 01/01/24 documented as of this encounter
--- OUTSIDE RECORDS SUMMARY | 2024-11-27 08:29 | XMS_ITS | Clinical Summary ---
Author Organization [facility] Address [address] [place] [address] Care Team Providers Care Recreational Vehicle Repairer Name Role Phone Unavailable Primary Care Provider Unavailabl e Social History Tobacco Use Types Packs/Day Years Used Date Smoking Tobacco: Never Assessed Sex and Gender Information Value Date Recorded Sex Assigned at Not on file Legal Sex Male 9:10 AM EST Gender Identity Not on file Sexual Orientation Not on file Plan of Treatment Health Maintenance Due Date Last Done Comments DTaP,Tdap,and Td Vaccines (1 - Tdap) 1982 Pneumococcal Vaccine: 50+ Ye ars (1 of 1 - PCV) 2013 Zoster Vaccines (1 of 2) 2013 Cholesterol Screening (Lipid Panel) 09/11/2022 Colorectal Cancer Screening: Colonoscopy 09/11/2022 Depression Screening 09/11/2022 HIV Screening 09/11/2022 Hepatitis C Screening 09/11/2022 Social Influencers of Health Screening 09/11/2022 COVID-19 Vaccine (1 - 2023-2 5 season) 2024 Influenza Vaccine [...] patient's age to complete this topic Meningococcal B Vacine Aged Out No lo nger eligible based [...]
--- OUTSIDE RECORDS SUMMARY | 2024-11-27 08:29 | XMS_ITS | Encounter Summary ---
Author Organization [facility] Address [address] [place] [id number] Care Team Providers Care Assembler Movement Name Role Phone Pcp, No Primary Care Provider Unavailabl e Reason for Referral * Imaging (Routine) - Authorized Specialty Diagnoses / Procedures Referred By Contac t Referred To Contact Radiology Diagnoses Pain in left ankle and joints of left foot Procedures XR ANKLE 2 VIEWS LEFT Mary Carrero PA-C [address] [place] [phone] Phone: tel: fax: [facility] Radiology - Central Scheduling [place] Phone: tel: fax: Referral ID Status Reason Start Date Expiration Date Visits Requested Visits Authorized [id number] Authorized Perform Procedure 01/01/2024 12/31/2024 1 1 Encounter Details Date Type Department Care Team ([facility] Contact Info) Description 01/01/2024 Ancillary Orders [facility] Radiology, Outpatient Center (Diag Rad) [address], [address] [place], [place] [address] Mary Carrero PA-C [address] [place] [phone] Pain in left ankle and joints [...] foot documented in this encounter Care Teams Assembler Movement Relationship Specialty Start Date End Date Pcp, [place] [address] PCP - General 01/01/24 documented as of this encounter
--- OUTSIDE RECORDS SUMMARY | 2024-11-27 08:29 | XMS_ITS | Clinical Summary ---
Author Organization [employer] Address [address] [place] [address] Care Team Providers Care Attending Ambulatory Care Name Role Phone Pcp, No Primary Care [...] this topic Insurance [employer] Care Teams Attending Ambulatory Care Relationship Specialty Start Date End Date Pcp, [place] [address] PCP - General 01/01/24
--- OUTSIDE RECORDS SUMMARY | 2024-11-27 08:29 | XMS_ITS | Continuity of Care Document ---
Author Name [facility] Organization [facility] Care Team Providers Care Shipping And Receiving Coordinator Name Role Phone [facility] Unavailable Unavailable Problems Combined list of problems from [facility] and [facility] facilities. It does not include entries that were removed or entered in error. Problem Status Onset Date Problem Type Date of Resolution Comments Source Personal history of malignant neoplasm of bladder Active 03/29/20 16 Condition [facility] Incision and drainage of perirectal abscess Inactive 06/13/19 97 Condition Jun 26, 1997 Entered By: JONATHON WALTER Comment: on [id number] [facility] Perianal abscess Inactive 06/13/19 97 Condition [facility] Acute appendicitis Active Condition [facility] Appendicitis * (ICD-9-CM 541.) Active Condition 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 It does not include entries that were removed or entered in error. Substance Category Reaction Severity Reaction type Status Date Reported Comments Source BEE STINGS Propensity to adverse reaction (finding) active 5 [facility] ibuprofen Propensity to adverse reactions to drug GI Reaction Active 2 [facility] LACTOSE Propensity to adverse reactions to substance (finding) active 5 [facility] MOTRIN Propensity to adverse reactions to drug (finding) active 8 [facility] MOTRIN (IBUPROFEN) Drug allergy (disorder) GI Reaction active 2 [employer] Immunizations Combined list of available immunizations from the Department of Defense and Veterans Affairs facilities. Immunization Series Date Given Administered By Site Reaction Lot Number CVX Code Drug Check Viewer Status Comments Source influenza, injectable, quadrivalent- pf 2021 [id number] 150 GlaxoSmithKli ne complet ed influenza , injectabl e, quadrival ent-pf 07/11/22 Given Ambulat ory Pharmac y influenza, injectable, quadrivalent- pf 2021 [id number] 150 GlaxoSmithKli ne complet ed influenza , injectabl e, quadrival ent-pf 07/11/22 Given Ambulat ory Pharmac y SARS-CoV-2 (COVID-19) mRNA-Bivalent 2021 [id number] 229 complet ed SARS-CoV- 2 (COVID-19 ) mRNA-Biva lent 06/19/22 Given Ambulat ory Pharmac y SARS-CoV-2 (COVID-19) mRNA-Bivalent 2021 [id number] 229 complet ed SARS-CoV- 2 (COVID-19 ) mRNA-Biva lent 06/19/22 Given Ambulat ory Pharmac y COVID Vaccine Moderna 2021 [id number] 207 complet ed COVID Vaccine Moderna 10/21/21 Given Ambulat ory Pharmac y COVID Vaccine Moderna 2021 [id number] 207 complet ed COVID Vaccine Moderna 10/21/21 Given Ambulat ory Pharmac y influenza, injectable, quadrivalent 2020 [id number] 158 GlaxoSmithKli ne complet ed influenza , injectabl e, quadrival ent 06/24/21 Given Ambulat ory Pharmac y influenza, injectable, quadrivalent 2020 [id number] 158 GlaxoSmithKli ne complet ed influenza , injectabl e, quadrival ent 06/24/21 Given Ambulat ory Pharmac y COVID Vaccine Moderna 2020 [id number] 207 complet ed COVID Vaccine Moderna 12/04/20 Given Ambulat ory Pharmac y COVID Vaccine Moderna 2020 [id number] 207 complet ed COVID Vaccine Moderna 12/04/20 Given Ambulat ory Pharmac y COVID Vaccine Moderna 2020 [id number] 207 complet ed COVID Vaccine Moderna 11/03/20 Given Ambulat ory Pharmac y COVID Vaccine Moderna 2020 [id number] 207 complet ed COVID Vaccine Moderna 11/03/20 Given Ambulat ory Pharmac y influenza, injectable, quadrivalent- pf 2019 [id number] 150 Seqirus complet ed influenza , injectabl e, quadrival ent-pf 08/15/20 Given Ambulat ory Pharmac y influenza, injectable, quadrivalent- pf 2019 [id number] 077 150 Se[employer]irus complet ed influenza , injectabl e, quadrival ent-pf 08/15/20 Given Ambulat ory Pharmac y influenza, seasonal, injectable-pf 2018 [id number] 140 GlaxoSmithKli ne complet ed influenza , seasonal, injectabl e-pf 07/17/19 Given Ambulat ory Pharmac y INFLUENZA, INJECTABLE, QUADRIVALENT, PRESERVATIVE FREE 2018 150 complet ed Partner: [facility]. Administe red by: MARIA R GALEANO (NOJ=[phone]). Partner 5 Lot#: [id number] Mfr: GlaxFront Rowit hKline; Dosage: 0.5 [facility] Influenza, seasonal, injectable, preservative free 1 2018 [id number] 140 [facility] ([facility] complet ed Influenza , seasonal, injectabl e, preservat tayla free DoD tetanus, diphtheria, acellular pertu is 2018 [id number] 115 sanofi pasteur complet ed tetanus, diphtheri a, acellular pertussis 05/12/19 Given Ambulat ory Pharmac y tetanus toxoid, reduced diphtheria toxoid, and acellular pertu is vaccine, adsorbed 4 2018 [id number] 115 Sanofi Pasteur (PMC) complet ed tetanus toxoid, reduced diphtheri a toxoid, and acellular pertussis vaccine, adsorbed DoD zoster vaccine live 2017 [id number] 121 Seqirus complet ed zoster vaccine live 06/16/18 Given Ambulat ory Pharmac y zoster vaccine, live 1 2017 [id number] 121 Seqirus (SEQ) comple t ed zoster vaccine, live DoD influenza, seasonal, injectable 2017 [id number] 141 sanofi pasteur complet ed influenza , seasonal, injectabl e 06/14/18 Given Ambulat ory Pharmac y Influenza, seasonal, injectable 1 2017 [id number] 141 Sanofi Pasteur (PMC) complet ed Influenza , seasonal, injectabl e DoD measles virus vaccine 0 2017 05 () Not Given measles virus vaccine DoD rubella virus vaccine 0 2017 06 () Not Given rubella virus vaccine DoD mumps virus vaccine 0 2017 07 () Not Given mumps virus vaccine DoD typhoid Vi capsular polysaccharid e vac 2017 [id number] 101 sanofi pasteur complet ed typhoid Vi capsular polysacch aride vac 02/14/18 Given Ambulat ory Pharmac y typhoid Vi capsular polysaccharid e vaccine 1 2017 [id number] 101 Sanofi Pasteur (PMC) complet ed typhoid Vi capsular polysacch aride vaccine DoD zoster vaccine live 2017 [id number] 121 GlaxoSmithKli ne complet ed zoster vaccine live 01/12/18 Given Ambulat ory Pharmac y zoster vaccine, live 1 2017 [id number] 03 121 SmithKline (SKB) complet ed zoster vaccine, live DoD influenza, seasonal, injectable 2016 [id number] 141 Seqirus complet ed influenza , seasonal, injectabl e 08/13/17 Given Ambulat ory Pharmac y Influenza, seasonal, injectable 1 2016 [id number] 141 Seqirus (SEQ) comple t ed Influenza , seasonal, injectabl e DoD influenza, seasonal, injectable-pf 2015 [id number] 140 CSL Behring complet ed influenza , seasonal, injectabl e-pf 08/14/16 Given Ambulat ory Pharmac y Influenza, seasonal, injectable, preservative free 0 2015 [id number] 140 [employer] (CSL) complet ed Influenza , seasonal, injectabl e, preservat tayla free DoD influenza, seasonal, injectable-pf 2014 [id number] 140 CSL Behring complet ed influenza , seasonal, injectabl e-pf 07/12/15 Given Ambulat ory Pharmac y Influenza, seasonal, injectable, preservative free 22 2014 [id number] 140 [facility] [employer]ail[employer] ([facility]) complet ed Influenza , seasonal, injectabl e, preservat tayla free DoD influenza, seasonal, injectable-pf 2013 [id number] 140 Novartis Pharmaceutica ls complet ed influenza , seasonal, injectabl e-pf 08/09/14 Given Ambulat ory Pharmac y Influenza, seasonal, injectable, preservative free 21 2013 [id number] 140 Novartis Pharmaceutica l Jeovanny. (NOV) complet ed Influenza , seasonal, injectabl e, preservat tayla free DoD influenza, seasonal, injectable 2012 [id number] 141 [facility] influenza , seasonal, injectabl e 07/27/13 Given Ambulat ory Pharmac y Influenza, seasonal, injectable 1 2012 [id number] 141 [facility] [employer] ([facility]) complet ed Influenza , seasonal, injectabl e DoD influenza, seasonal, injectable-pf 2011 [id number] 140 [facility] complet ed influenza , seasonal, injectabl e-pf 07/22/12 Given Ambulat ory Pharmac y Influenza, seasonal, injectable, preservative free 19 2011 [id number] 140 [facility] [employer] ([facility]) complet ed Influenza , seasonal, injectabl e, preservat tayla free DoD influenza, seasonal, injectable-pf 2010 [id number] 140 Novartis Pharmaceutica ls complet ed influenza , seasonal, injectabl e-pf 06/04/11 Given Ambulat ory Pharmac y influenza, seasonal, injectable 2010 [id number] 141 complet ed influenza , seasonal, injectabl e 06/04/11 Given Ambulat ory Pharmac y Influenza, seasonal, injectable, preservative free 2010 140 Novartis Pharmaceutica l Jeovanny. (NOV) complet ed Influenza , seasonal, injectabl e, preservat tayla free DoD Influenza, seasonal, injectable 1 2010 [id number] 141 Transcribed (TRS) complet ed Influenza , seasonal, injectabl e DoD influenza, seasonal, injectable 2009 141 Novartis Pharmaceutica ls complet ed influenza , seasonal, injectabl e 07/24/10 Given Ambulat ory Pharmac y influenza virus vaccine,split 2009 [id number] P1 15 complet ed influenza virus vaccine,s plit 07/24/10 Given Ambulat ory Pharmac y influenza virus vaccine, split virus (incl. purified surface antigen)-reti red CODE 2 2009 [id number] P1 15 Transcribed (TRS) complet ed influenza virus vaccine, split virus (incl. purified surface antigen)- retired CODE DoD Influenza, seasonal, injectable 0 2009 141 Novartis Pharmaceutica l Jeovanny. (NOV) complet ed Influenza , seasonal, injectabl e DoD Novel influenza-H1N 1-09, injectable 2009 [id number] 1 127 Novartis Pharmaceutica ls complet ed Novel influenza -P0L8-17, injectabl e 12/02/09 Given Ambulat ory Pharmac y Novel influenza-H1N 1-09, injectable 1 2009 [id number] 1 127 Novartis Pharmaceutica l Jeovanny. (AUG) complet ed Novel influenza -E5O1-13, injectabl e DoD Novel influenza-H1N 1-09, injectable 2009 [id number] 1A 127 complet ed Novel influenza -E0S2-62, injectabl e 12/01/09 Given Ambulat ory Pharmac y Novel influenza-H1N 1-09, injectable 1 2009 [id number] 1A 127 () complet ed Novel influenza -H5F1-78, injectabl e DoD influenza virus vaccine, live 2008 [id number] 111 [employer] comple t ed influenza virus vaccine, live 08/27/09 Given Ambulat ory Pharmac y influenza virus vaccine, live, attenuated, for intranasal use 1 2008 [id number] 111 Invizeon[employer] Inc. (MED) complet ed influenza virus vaccine, live, attenuate d, for intranasa l use DoD tetanus, diphtheria, acellular pertu is 2008 [id number] 115 sanofi pasteur complet ed tetanus, diphtheri a, acellular pertussis 04/18/09 Given Ambulat ory Pharmac y tetanus toxoid, reduced diphtheria toxoid, and acellular pertu is vaccine, adsorbed 1 2008 [id number] 115 Sanofi Pasteur (PMC) complet ed tetanus [...] typhoid Vi capsular polysaccharid e vac 2007 [id number] 101 sanofi pasteur complet ed typhoid Vi capsular polysacch aride vac 07/13/08 Given Ambulat ory Pharmac y typhoid Vi capsular polysaccharid e vaccine 1 2007 [id number] 101 Sanofi Pasteur ([facility]) complet ed typhoid Vi capsular polysacch aride vaccine DoD influenza virus vaccine,split 2006 [id number] 15 GlaxoSmithKli ne complet ed influenza virus vaccine,s plit 09/03/07 Given Ambulat ory Pharmac y influenza virus vaccine, split virus (incl. purified surface antigen)-reti red CODE 1 2006 [id number] 15 SmithKline ([facility]) complet ed influenza virus vaccine, split virus (incl. purified surface antigen)- retired CODE DoD influenza virus vaccine,split 2005 [id number] 15 Unknown complet ed influenza virus vaccine,s plit 09/10/06 Given Ambulat ory Pharmac y influenza virus vaccine, split virus (incl. purified surface antigen)-reti red CODE 1 2005 [id number] 15 Other (OTH) complet ed influenza virus vaccine, split virus (incl. purified surface antigen)- retired CODE DoD typhoid vaccine, parenteral 2005 [id number] 41 sanofi pasteur complet ed typhoid vaccine, parentera l 03/11/06 Given Ambulat ory Pharmac y typhoid vaccine, parenteral, other than acetone-kille d, dried 1 2005 [id number] 41 Sanofi Pasteur ([facility]) complet ed typhoid vaccine, parentera l, other than acetone-k illed, dried DoD influenza virus vaccine,split 2004 [id number] 15 sanofi pasteur complet ed influenza virus vaccine,s plit 08/16/05 Given Ambulat ory Pharmac y influenza virus vaccine, split virus (incl. purified surface antigen)-reti red CODE 1 2004 [id number] 15 Sanofi Pasteur (PMC) complet ed influenza virus vaccine, split virus (incl. purified surface antigen)- retired CODE DoD FLU,3 YRS (HISTORICAL) 2004 MARILIN RAMIRES 88 complet ed [facility] influenza virus vaccine, live 2004 [id number] 111 [employer] comple t ed influenza virus vaccine, live 10/16/04 Given Ambulat ory Pharmac y influenza virus vaccine, live, attenuated, for intranasal use 0 2004 [id number] 111 Invizeon, Inc. (MED) complet ed influenza virus vaccine, live, attenuate d, for intranasa l use [facility] typhoid vaccine, parenteral 2003 [id number] 41 sanofi pasteur complet ed typhoid vaccine, parentera l 04/18/04 Given Ambulat ory Pharmac y typhoid vaccine, parenteral, other than acetone-kille d, dried 0 2003 [id number] 41 Sanofi Pasteur ([facility]) complet ed typhoid vaccine, parentera l, other than acetone-k illed, dried [facility] tuberculin purified protein derivative 2003 [id number] 96 sanofi pasteur complet ed tuberculi n purified protein derivativ e 11/15/03 Given Ambulat ory Pharmac y tuberculin purified protein derivative 2003 [id number] 96 sanofi pasteur complet ed tuberculi n purified protein derivativ e 11/15/03 Given Ambulat ory Pharmac y anthrax vaccine 2003 [id number] 24 [employer] complet ed anthrax vaccine 11/15/03 Given Ambulat ory Pharmac y anthrax vaccine 6 2003 [id number] 24 [employer] [place] (MIP) complet ed anthrax vaccine DoD influenza virus vaccine, live 2003 [id number] 111 [employer] comple t ed influenza virus vaccine, live 11/01/03 Given Ambulat ory Pharmac y influenza virus vaccine, live, attenuated, for intranasal use 0 2003 [id number] 111 Invizeon, Inc. (MED) complet ed influenza virus vaccine, live, attenuate d, for intranasa l use [facility] influenza virus vaccine, whole virus 2002 [id number] 16 Novartis Pharmaceutica ls complet ed influenza virus vaccine, whole virus 08/05/03 Given Ambulat ory Pharmac y influenza virus vaccine, whole virus 0 2002 [id number] 16 [employer] (PWJ) complet ed influenza virus vaccine, whole virus DoD vaccinia (smallpox) vaccine 2002 [id number] 75 [facility] complet ed vaccinia (smallpox ) vaccine 12/09/02 Given Ambulat ory Pharmac y anthrax vaccine 2002 [id number] 24 [employer] complet ed anthrax vaccine 12/09/02 Given Ambulat ory Pharmac y meningococcal polysaccharid e (MPSV4) 2002 [id number] 32 sanofi pasteur complet ed meningoco ccal polysacch aride (MPSV4) 12/09/02 Given Ambulat ory Pharmac y anthrax vaccine 5 2002 [id number] 24 [employer] [place] (MIP) complet ed anthrax vaccine DoD meningococcal polysaccharid e vaccine (MPSV4) 0 2002 [id number] 32 Sanofi Pasteur (PMC) complet ed meningoco ccal polysacch aride vaccine (MPSV4) DoD vaccinia (smallpox) vaccine 0 2002 [id number] 75 [facility] ([facility]) complet ed vaccinia (smallpox ) vaccine DoD PNEUMOCOCCAL POLYSACCHARID E [id number] 2001 33 complet ed [facility] yellow fever vaccine 2001 [id number] 37 sanofi pasteur complet ed yellow fever vaccine 09/14/02 Given Ambulat ory Pharmac y yellow fever vaccine 0 2001 [id number] 37 Sanofi Pasteur (PMC) complet ed yellow fever vaccine DoD tuberculin purified protein derivative 2001 [id number] 96 sanofi pasteur complet ed tuberculi n purified protein derivativ e 09/09/02 Given Ambulat ory Pharmac y tuberculin purified protein derivative 2001 [id number] 96 sanofi pasteur complet ed tuberculi n purified protein derivativ e 09/09/02 Given Ambulat ory Pharmac y influenza virus vaccine, whole virus 2001 [id number] 16 sanofi pasteur complet ed influenza virus vaccine, whole virus 09/09/02 Given Ambulat ory Pharmac y INFLUENZA (HISTORICAL) 2001 88 complet ed [employer] influenza virus vaccine, whole virus 0 2001 [id number] 16 Sanofi Pasteur ([facility]) complet ed influenza virus vaccine, whole virus DoD influenza virus vaccine, whole virus 2000 [id number] 16 sanofi pasteur complet ed influenza virus vaccine, whole virus 09/08/01 Given Ambulat ory Pharmac y influenza virus vaccine, whole virus 0 2000 [id number] 16 Sanofi Pasteur ([facility]) complet ed influenza virus vaccine, whole virus DoD tuberculin purified protein derivative 2000 [id number] 96 [facility] complet ed tuberculi n purified protein derivativ e 01/13/01 Given Ambulat ory Pharmac y tuberculin purified protein derivative 2000 [id number] 96 [facility] tuberculi n purified protein derivativ e 01/13/01 Given Ambulat ory Pharmac y influenza virus vaccine, whole virus 2000 16 Unknown complet ed influenza virus vaccine, whole virus 10/13/00 Given Ambulat ory Pharmac y INFLUENZA, UNSPECIFIED FORMULATION 2000 88 complet ed [facility] influenza virus vaccine, whole virus 0 2000 16 Unknown (UNK) comple t ed influenza virus vaccine, whole virus [facility] TD(ADULT) UNSPECIFIED FORMULATION 2000 139 complet ed [facility] tuberculin purified protein derivative 1999 [id number] 96 [facility] ed tuberculi n purified protein derivativ e 08/15/00 Given Ambulat ory Pharmac y tuberculin purified protein derivative 1999 [id number] 96 [facility] ed tuberculi n purified protein derivativ e 08/15/00 Given Ambulat ory Pharmac y anthrax vaccine 1999 [id number] 24 [employer] complet ed anthrax vaccine 10/29/99 Given Ambulat ory Pharmac y anthrax vaccine 4 1999 [id number] 24 [employer] [place] ([facility]) complet ed anthrax vaccine DoD influenza virus vaccine, whole virus [id number] [id number] 16 [employer] complet ed influenza virus vaccine, whole virus 07/10/99 Given Ambulat ory Pharmac y influenza virus vaccine, whole virus 0 19980954 [id number] 16 [employer] (NATHALIE) complet ed influenza virus vaccine, whole virus DoD anthrax vaccine 1998 24 [employer] complet ed anthrax vaccine 04/16/99 Given Ambulat ory Pharmac y anthrax vaccine 3 1998 [facility] complet ed anthrax vaccine DoD anthrax vaccine 1998 [id number] 24 [employer] complet ed anthrax vaccine 04/02/99 Given Ambulat ory Pharmac y anthrax vaccine 2 1998 [id number] 24 [facility] complet ed anthrax vaccine DoD tuberculin [...] Ambulat ory Pharmac y anthrax vaccine 1998 [id number] 24 [employer] complet ed anthrax vaccine [...] a toxoid) DoD anthrax vaccine 1 1998 [id number] 24 [facility]) complet ed anthrax vaccine DoD typhoid vaccine, live, oral 0 1998 25 () complet ed typhoid vaccine, live, oral DoD measles/mumps /rubella virus vaccine 1997 [id number] 03 [employer] complet ed measles/m umps/rube lla virus vaccine 09/01/98 Given Ambulat ory Pharmac y measles, mumps and rubella virus vaccine 0 1997 [id number] 03 [employer] (AB) complet ed measles, mumps and rubella virus vaccine DoD influenza virus vaccine, whole virus 19970157 [id number] 16 [facility] complet ed influenza virus vaccine, whole virus 07/29/98 Given Ambulat ory Pharmac y influenza virus vaccine, whole virus 0 19971390 [id number] 16 [facility] (CON) complet ed influenza virus vaccine, whole virus DoD influenza virus vaccine, whole virus 19968217 [id number] 16 PFIZER complet ed influenza virus vaccine, whole virus 08/16/97 Given Ambulat ory Pharmac y influenza virus vaccine, whole virus 0 19969874 [id number] 16 [employer]-Ayerst (Inactive) () complet ed influenza virus vaccine, whole virus DoD hepatitis A adult vaccine 1996 [id number] 6 52 GlaxoSmithKli ne complet ed hepatitis A adult vaccine 05/17/97 Given Ambulat ory Pharmac y hepatitis A vaccine, adult dosage 2 1996 [id number] 6 52 SmithKline (SKB) complet ed hepatitis A vaccine, adult dosage DoD meningococcal polysaccharid e (MPSV4) 19961007 [id number] 32 PFIZER complet ed meningoco ccal polysacch aride (MPSV4) 11/09/96 Given Ambulat ory Pharmac y hepatitis A adult vaccine 19967415 [id number] 52 PFIZER complet ed hepatitis A adult vaccine 11/09/96 Given Ambulat ory Pharmac y meningococcal polysaccharid e vaccine (MPSV4) 0 19969120 [id number] 32 Wyeth-Ayerst (Inactive) ([place]) complet ed meningoco ccal polysacch aride vaccine (MPSV4) DoD hepatitis A vaccine, adult dosage 1 19960713 [id number] 52 [employer] ([place]active) ([place]) complet ed hepatitis A vaccine, adult dosage DoD INFLUENZA (HISTORICAL) 1995 VALERIANO CHANEL 88 complet ed [place] [facility] typhoid, parenteral, AKD 1994 [id number] 6 53 GlaxoSmithKli ne complet ed typhoid, parentera l, AKD 09/10/95 Given Ambulat ory Pharmac y typhoid vaccine, parenteral, acetone-kille d, dried ([place] ) 2 1994 [id number] 6 53 [facility] ([place]) complet ed typhoid vaccine, parentera l, acetone-k illed, dried ([place] ) DoD immune globulin, unspecified formulation 0 1994 14 () complet ed immune globulin, unspecifi ed formulati on DoD hepatitis B adult vaccine 19927929 9110598 43 PFIZER complet ed hepatitis B adult vaccine 12/13/92 Given Ambulat ory Pharmac y hepatitis B vaccine, adult dosage 3 19922198 [id number] 43 [employer]-Ayerst ([place]active) ([place]) complet ed hepatitis B vaccine, adult dosage DoD cholera vaccine unspecified formula 19916842 9100930 26 PFIZER complet ed cholera vaccine unspecifi ed formula 01/11/92 Given Ambulat ory Pharmac y cholera vaccine, unspecified formulation 0 19919624 [id number] 26 [employer]-Ayerst ([place] ([place]) complet ed cholera vaccine, unspecifi ed formulati on DoD yellow fever vaccine 19903940 1413982 37 PFIZER complet ed yellow fever vaccine 09/15/91 Given Ambulat ory Pharmac y yellow fever vaccine 0 19902552 [id number] 37 Wyeth-Ayerst ([place]active) ([place]) complet ed yellow fever vaccine DoD poliovirus [...] measles, mumps and rubella virus vaccine DoD Encounters Combined list of: 1) Encounters from Department of Veterans Affairs facilities going backup to the last 18 months, not all VA inpatient encounters are included; 2) Encounters from the Department of Defense facilities going backup to 280 months. Location Location Details Encounter Type Encounter Number Reason For Visit Attending Provider ADM Date DC Date Status Disposition Source [address] [place] [address]([facility]) OUTPATIENT [id number] [facility] BETO [place] 01/15 Released w/o Limitations [address] [place] [address]([facility]) [address] [place] [address]([facility]) TELE CONSULT [id number] Notes Entered by: PERRY GONZALEZ 19 Jan 2012 0743 ------- ------- ------- ------- -- GIL HARRINGTON 01/[address] [place] [address]([facility]) [address] [place] [address]([facility]) TELE CONSULT [id number] Notes Entered by: BONITA KMI 07 Mar 2012 0803 ------- ------- ------- ------- -- BONITA Bey 03/[address] [place] [address]([facility]) [address] [place] [address]([facility]) TELE CONSULT [id number] Notes Entered by: BONITA KIM 09 Jul 2012 1254 ------- ------- ------- ------- -- Renew - BETO Merchant 07/[address] [place] [address]([facility]) [address] [place] [address]([facility]) TELE CONSULT [id number] Notes Entered by: PERRY GONZALEZ 02 Jan 2013 1116 ------- ------- ------- ------- -- MICARE: BONITA Finch 01/[address] [place] [address]([facility]) [address] [place] [address]([facility]) TELE CONSULT [id number] Notes Entered by: PERRY GONZALEZ 18 Jan 2013 1524 ------- ------- ------- ------- -- MICARE: Sheron KIM BONITA 01/[address] [place] [address]([facility]) [address] [place] [address]([facility]) TELE CONSULT [id number] Notes Entered by: BONITA KIM 2013 0756 ------- ------- ------- ------- -- MICARE request for sheron KIM BONITA 12/[address] [place] [address](R eferral [facility]) [address] [place] [address](Ref err[facility]) TELE CONSULT [id number] Notes Entered by: BONITA KIM 25 Apr 2014 1348 ------- ------- ------- ------- -- LOD renewal JULIO BONITA 04/[address] [place] [address]([facility]) [address] [place] [address]([facility]) OUTPATIENT [id number] LOD follow up history of bladder cancer OG RIVAS 04/28 Released w/o Limitations [address] [place] [address]([facility]) [address] [place] [address]([facility]) TELE CONSULT [id number] Notes Entered by: Sg FATIMA 30 Apr 2014 0959 ------- ------- ------- ------- -- Network Results -Urolog y- CAROLINA NORMA T 04/30 [facility]) [facility]) OUTPATIENT [id number] LOD F/U OG RIVAS 03/04 Released w/o Limitations [facility]) [facility]) TELE CONSULT [id number] ELANSENIA MarcanoHER 05/21 [facility]) [facility]) OUTPATIENT [id number] LOD - F/u referra l to urology LE, RAFAELJOSE T 03/23 Released w/o Limitations [facility]) [facility]) TELE CONSULT [id number] Notes Entered by: WASHINGTON MOORE 20 May 2016 1532 ------- ------- ------- ------- -- WASHINGTON Segovia 05/20 [facility]) [address] [place] [address]([facility]) TELE CONSULT [id number] Notes Entered by: Daisha LIN 07 Oct 2016 1206 ------- ------- ------- ------- -- LOD Network Results Urology Jun 24 LE, NORMA T 10/07 [facility]) [facility]) OUTPATIENT [id number] LOD - Urology LE, RAFAELJOSE T 03/23 Released w/o Limitations [facility]) [facility]) OUTPATIENT [id number] f/u LOD-WIL Lewis 06/19 Released w/o Limitations [facility]) [address] [place] [address]([facility]) TELE CONSULT [id number] Notes Entered by: ME JANNY TOPETE 11 Feb 2019 1352 ------- ------- ------- ------- -- Network Results Urology [id number] WIL ARNETT VERO 02/11 [facility]) [facility]) TELE CONSULT [id number] Notes Entered by: GOOD MCBRIDE 30 Jul 2019 1558 ------- ------- ------- ------- -- Sheron Barger - KERWIN Maynard 07/30 Immediate Referral [facility]) [facility]) TELE CONSULT [id number] Notes Entered by: SENIA RODRIGUEZ 24 Jan 2020 1010 ------- ------- ------- ------- -- Network Results Uro [id number] WIL ARNETT VEOR 01/23 [facility]) [facility]) TELE CONSULT [id number] Notes Entered by: GOOD MCBRIDE 30 Jun 2020 1027 ------- ------- ------- ------- -- Backdat ed MARY Turner 06/30 Other Not Elsewhere Classified [facility]) Procedures Combined list of: [...] QUAL NONPHYS HLTH CARE PRO TO EST HARRIET FERRELL,JASE Ruano NOT ORIG REL ASSESS & MGT SRV PROV W/IN PREV 7 DAYS NOR LEAD ASSESS & MGT SRV/PX W/IN NXT 24 HR/SOON APT;5-10 MIN MED DIS 06/30/2020 [facility] Non-Physician Phone Call To Patient/Provide r Brief (5-10min) Non-Physician Phone Call To Patient/Provide r Brief (5-10min) [id number] MARY SALGADO [facility] Social History Combined list of available smoking, tobacco, and other social history from [facility] facilities. Social History Type Response Date Comment Sour e Tobacco smoking status NHIS LIFETIME NON-SMOKER 03/01/2022 [facility] History of tobacco use LIFETIME NON-SMOKER 04/22/2005 [facility] This section is an empty social history section. DoD Assessment and Plan Combined list of future care activities from [facility] of Defense and Veterans Affairs facilities (e.g., assessment and plan notes, appointments, orders, and referrals). Additional future care activities may be listed in the Plan of Care section. Result Assessment and Plan Date Source Assessment and Plan No data available for this section 11/27/2024 [facility] Functional Status Combined list of recent functional and cognitive assessments recorded at [facility] Functional Dawes Measurement (FIM) Scale: 1 = Total Assistance (Subject = 0% +), 2 = Maximal Assistance (Subject = 25% +), 3 = Moderate Assistance (Subject = 50% +), 4 = Minimal Assistance (Subject = 75% +), 5 = Supervision, 6 = Modified Dawes (Device), 7 = Complete Dawes (Timely, Safely). Assessment Date/Time Source Assessment Type Assessment Skill Assessment Score Assessment Details No data available for this section
[2024-11-27 10:01] LABS: MANUAL DIFF FLAG NO
[2024-11-27 10:09] LABS: Basophils Percent Auto 0.6 % (0-2); Eosinophils Absolute Auto 0.2 X10*3/uL (0.0-0.4); Eosinophils Percent Auto 2.7 % (0-4); Hematocrit 43.1 % (42.0-52.0); Imm Gran Abs Auto 0.02 X10*3/uL (0.00-0.03); Imm Gran Pct Auto 0.3 % (0.0-0.4); Lymphocytes Absolute Auto 2.4 X10*3/uL (1.2-4.9); Lymphocytes Percent Auto 37.3 % (20-40); Mean Corpuscular HGB Conc 34.8 g/dl (31.0-36.0); Mean Corpuscular Hemoglobin 30.7 pg (27.0-33.0); Mean Corpuscular Volume 88.3 fL (80.0-98.0); Mean Platelet Volume 9.8 fL (9.4-12.4); Monocytes Absolute Auto 0.5 X10*3/uL (0.1-1.2); Monocytes Percent Auto 8.5 % (2-11); Neutrophils Absolute Auto 3.2 x10*3/uL (2.0-8.3); Neutrophils Percent Auto 50.6 % (45-73); Platelet Count 218 X10*3/uL (160-400); Red Blood Count 4.88 X10*6/uL (4.60-5.80); Red Cell Distribution Width 12.4 % (11.0-16.0); White Blood Count 6.3 X10*3/uL (4.8-10.8)
[2024-11-27 10:43] LABS: Alanine Aminotransferase 34 U/L (0-40); Albumin Level 4.3 g/dL (3.5-5.0); Alkaline Phosphatase 41 U/L (39-117); Anion Gap 12 (12-20); Aspartate Amino Transferase 30 U/L (5-37); Bilirubin Total 0.9 mg/dL (0.0-1.0); Blood Urea Nitrogen 13 mg/dL (9-16); Calcium 8.8 mg/dL (8.4-10.2); Carbon Dioxide 27 mmol/L (22-29); Chloride 105 mmol/L (96-108); Cholesterol 166 mg/dL (<200); Estimated Glomerular Filt Rate > 60; Glucose Fasting 109 mg/dL (60-99); HDL Cholesterol 49 mg/dL (>40); LDL Cholesterol Calculated 100 mg/dL (<100); Sodium 140 mmol/L (135-145); Total Protein 7.3 g/dL (6.5-8.0); Triglycerides 89 mg/dL (<150)
[2024-11-27 10:48] LABS: TSH reflex Free T4 1.82 uIU/mL (0.32-4.0)
== END 2024-11-27 08:27 | disposition home or self-care (01) ==
LOC: HO.HMGCLDS 08:26
PROVIDERS: PCP Internal Medicine; Visit Provider Internal Medicine
DX: E78.5 Hyperlipidemia, unspecified (principal); I10 Essential (primary) hypertension; K21.9 Gastro-esophageal reflux disease without esophagitis
CPT/HCPCS: 36415; 80053; 80061; 84443; 85025

== ENCOUNTER 2025-02-05 10:20 | Outpatient (AMB) | payer OTHER, SELFPAY ==
[2025-02-05 10:39] VITALS: BP 120/68; PULSE 62; O2SAT 96; BMI 26.4
--- NOTE | 2025-02-05 10:39 | A.OFFVIS_ITS ---
Vital Signs 02/05/25 10:39 Height 5 ft 11 in Weight 189 lb 6 oz BMI 26.4 BP 120/68 Blood Pressure Location Rt brachial Position Sitting Pulse 62 Pulse Source Pulse Oximeter Pulse Oximetry (%) 96 Oxygen Delivery Method Room Air Intake Visit Reasons: 4 mnts f/u Intake Note: Patient presents follow up JO-ANN medication. Compliance in chart( 79/90 days (88%)>=4hrs 61 days, Median pressure 7.0, AHI- 4.1, Median leaks 29.3) Allergies oxybutynin Allergy (Intermediate, Verified 02/05/25 10:43) nausea, headaches, blurry vision ibuprofen [From Motrin] Allergy (Unknown, Verified 02/05/25 10:43) NAUSEA & VOMITING, GI upset HPI Comments Details: 58 year old male, h/o of bladder cancer in remission is here for f/u of Home Sleep Study. HST Sep 2024 JO-ANN Mild, with associated nocturnal hypoxemia and an average O2 SAT below 88% for 17min. JOCELYN 13.5 OAI 9.6 Lowest Oxygen desaturation 76%. Since starting his CPAP he is no longer snoring and his headaches have now dissipated which he was accustomed to living with. He feels more energetic daily and does not take naps. He goes to bed at 10:30pm takes Mirtazapine 7.5mg PO, as this helps with mood and sleep. He denies a/v hallucinations or parasomnias. He goes to the bathroom 3-4 times a night and has urge incontinence, he will look into Urology referral with [facility] due to insurance. He was treated for bladder cancer in 2009 and continues to have urge incontinence despite bladder training, timed toileting, medications and pelvic floor training. He served in the [employer] for 37 years and has vivid dreams, abnormal sleep patterns. Denies RLS, pins and needles or numbness that radiates. He exercises daily, his mood and diet are good. Continue washing the mask and replacing filters and hoses as needed. 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 Maternal Grandmother No problems noted. Paternal Grandfather No problems noted. Paternal Grandmother No problems noted. Brother No problems noted. 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[employer], rt hand Cognitive needs: No Hearing needs: No Vision needs: Yes Physical Exam Vital Signs: Last Vital Signs Pulse 62 02/05/25 10:39 BP 120/68 02/05/25 10:39 Pulse Ox 96 02/05/25 10:39 Oxygen Delivery Method Room Air 02/05/25 10:39 BMI result Body Mass Index 26.4 Const General: cooperative, healthy appearing and no acute distress Nutritional Appearance: average body habitus Orientation/consciousness: patient oriented x3 HEENT Face and sinus: Yes face symmetric Eyes Pupils: Equal, round and reactive pupils present Neck Neck: Yes full ROM Resp Effort & Inspection: normal respiratory effort and able to speak in complete sentences Neuro General: patient oriented x3 and moves all extremities Cranial nerves: Yes Facial sensation intact/muscles of mastication intact, Yes Equal, round and reactive pupils present, Yes Normal accommodation reflex present, Yes Normal facial strength present, Yes Midline tongue present, Yes Ab ility to bilaterally rotate head present and Yes Ability to bilaterally elevate shoulders present Gait exam (Neuro): Normal gait present Motor exam (neuro): 5/5 motor strength present throughout and Normal motor muscle tone present throughout Psych Appearance: grossly normal Thought process: Normal thought process present Thought content: Normal thought content present Results Reviewed Results Reviewed: 11/07/2024- 02/04/2025 Usage 79/90 days >4 hours 61 days 68% Avg use 4 hours 43 min APAP [id number] therapy 7.0-10.7 Leaks 4 min to 29.3cmH20 AHI is 4.1/hr Assessment & Plan Assessment & Plan (1) JO-ANN (obstructive sleep apnea): Comment: Started on CPAP 10/2024 Code(s): G47.33 - Obstructive sleep apnea (adult) (pediatric) Category: Medical (2) Nocturia more than twice per night: Code(s): R35.1 - Nocturia Category: Medical Plan JO-ANN on CPAP is compliant [facility] Nocturia continue pelvis floor exercises and f/u for urgency and incontinence with urology. Patient Instructions: Sleep Hygiene provided: set a scheduled bedtime and wake time to help regulate the circadian rhythm and balance the release of pituitary hormones. Sleep in a dark room, temperatures below 68 degrees, and no devices n bed. Limit caffeinated products 6 hours prior to bed, and limit fluids 2-4 hours prior to bed. Gentle night yoga, diffusing essential oils, and playing soft music can be relaxing. Coding Level of Care Code Est Pt Level 4 (72257) Diagnoses JO-ANN (obstructive sleep apnea) G47.33 Nocturia more than twice per night R35.1 Time Spent (min) 20 Comment improving
--- OUTSIDE RECORDS SUMMARY | 2025-02-05 11:39 | XMS_ITS | Clinical Summary ---
Author Organization [facility] Address [address] [place] [address] Care Team Providers Care Dental Insurance Biller Name Role Phone Pcp, No Primary Care [...] - 2023-2 5 season) 2024 Influenza Vaccine (Season Ended) 2025 RSV 60+ (1 - 1-dose 75+ series) [...] this topic Insurance [employer] Care Teams Dental Insurance Biller Relationship Specialty Start Date End Date Pcp, [place] [address] PCP - General 01/01/24
--- OUTSIDE RECORDS SUMMARY | 2025-02-05 11:39 | XMS_ITS | Encounter Summary ---
Author Organization [facility] Address [address] [place] [address] Care Team Providers Care Tutoring Clinician Name Role Phone Pcp, No Primary Care Provider Unavailabl e Reason for Referral * Imaging (Routine) - Closed Specialty Diagnoses / Procedures Referred By Contac t Referred To Contact Radiology Diagnoses Pain in left ankle and joints of left foot Procedures XR ANKLE 2 VIEWS LEFT Mary Carrero PA-C [address] [place] [phone] Phone: tel: fax: [facility] Radiology - Central Scheduling [place] Phone: tel: fax: Referral ID Status Reason Start Date Expiration Date V isits Requested Visits Authorized [id number] Closed Perform Procedure 01/01/2024 12/31/2024 1 1 Encounter Details Date Type Department Care Team ([facility] st Contact Info) Description 01/01/2024 Ancillary Orders [facility] Radiology, Outpatient Center (Diag Rad) [address] [place], [place] [address] Mary Carrero PA-C [address] [place] [phone] Pain in left ankle and joints [...] foot documented in this encounter Care Teams Tutoring Clinician Relationship Specialty Start Date End Date Pcp, No [place] [address] PCP - General 01/01/24 documented as of this encounter
--- OUTSIDE RECORDS SUMMARY | 2025-02-05 11:39 | XMS_ITS | Encounter Summary ---
Author Organization [facility] Address [address] [place] [address] Care Team Providers Care Label Printing Machinist Name Role Phone Pcp, No Primary Care Provider Unavailabl e Reason for Referral * Imaging (Routine) - Closed Specialty Diagnoses / Procedures Referred By Contac t Referred To Contact Radiology Diagnoses Acute sinusitis, unspecified Procedures XR PARANASAL SINUSES 1-2 VIEWS Mary Carrero PA-C [address] [place] [phone] Phone: tel: fax: [facility] Radiology - Central Scheduling [place] Phone: tel: fax: Referral ID Status Reason Start Date Expiration Date V isits Requested Visits Authorized [id number] Closed Perform Procedure 01/01/2024 12/31/2024 1 1 Encounter Details Date Type Department Care Team (Late st Contact Info) Description 01/01/2024 Ancillary Orders [facility] Radiology, Outpatient Center (Diag Rad) [address] [place], [place] [address] Mary Carrero PA-C [address] [place] [phone] Acute sinusitis, unspecified (Primary Dx) Social [...] unspecified documented in this encounter Care Teams Label Printing Machinist Relationship Specialty Start Date End Date Pcp, [place] [address] PCP - General 01/01/24 documented as of this encounter
--- OUTSIDE RECORDS SUMMARY | 2025-02-05 11:39 | XMS_ITS | Continuity of Care Document ---
Author Name [facility] Organization [facility] Care Team Providers Care Workday Senior Associate Name Role Phone [facility] Unavailable Unavailable Problems Combined list of problems from [facility] and [facility] facilities. It does not include entries that were removed or entered in error. Problem Status Onset Date Problem Type Date of Resolution Comments Source Personal history of malignant neoplasm of bladder Active 03/29/20 16 Condition [facility] Incision and drainage of perirectal abscess Inactive 06/13/19 97 Condition Jun 26, 1997 Entered By: JONATHON WALTER Comment: on [id number] [facility] Perianal abscess Inactive 06/13/19 97 Condition [facility] visit for: administrative purpose Inactive Condition [facility] BLADDER CANCER Active Condition [facility] Acute appendicitis Active Condition [facility]end[facility] * (ICD-9-CM 541.) Active Condition [facility] Attention deficit disorder of childhood without mention of hyperactivity (ICD-9- Active Condition 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 It does not include entries that were removed or entered in error. Substance Category Reaction Severity Reaction type Status Date Reported Comments Source BEE STINGS Propensity to adverse reaction (finding) active 5 [facility] ibuprofen Propensity to adverse reactions to drug GI Reaction Active 2 [facility]ps[facility] Unknown Organization LACTOSE Propensity to adverse reactions to substance (finding) active 5 [facility] MOTRIN Propensity to adverse reactions to drug (finding) active 8 [facility] MOTRIN (IBUPROFEN ) Drug allergy (disorder) GI Reaction active 2 [facility] Immunizations Combined list of available immunizations from the Department of Defense and Veterans Affairs facilities. Immunization Series Date Given Administered By Site Reaction Lot Number CVX Code Drug Meat Molder Status Comments Source influenza, injectable, quadrivalent- pf 2021 [id number] 150 GlaxoSmithKli ne complet ed influenza , injectabl e, quadrival ent-pf 07/11/22 Given Ambulat ory Pharmac y influenza, injectable, quadrivalent- pf 2021 [id number] 150 GlaxoSmithKli ne complet ed influenza , injectabl e, quadrival ent-pf 07/11/22 Given Ambulat ory Pharmac y SARS-CoV-2 (COVID-19) mRNA-Bivalent 2021 [id number] 229 complet ed SARS-CoV- 2 (COVID-19 ) mRNA-Biva lent 06/19/22 Given Ambulat ory Pharmac y SARS-CoV-2 (COVID-19) mRNA-Bivalent 2021 [id number] 229 complet ed SARS-CoV- 2 (COVID-19 ) mRNA-Biva lent 06/19/22 Given Ambulat ory Pharmac y COVID Vaccine Moderna 2021 [id number] 207 complet ed COVID Vaccine Moderna 10/21/21 Given Ambulat ory Pharmac y COVID Vaccine Moderna 2021 [id number] 207 complet ed COVID Vaccine Moderna 10/21/21 Given Ambulat ory Pharmac y influenza, injectable, quadrivalent 2020 [id number] 158 GlaxoSmithKli ne complet ed influenza , injectabl e, quadrival ent 06/24/21 Given Ambulat ory Pharmac y influenza, injectable, quadrivalent 2020 [id number] 158 GlaxoSmithKli ne complet ed influenza , injectabl e, quadrival ent 06/24/21 Given Ambulat ory Pharmac y COVID Vaccine Moderna 2020 [id number] 207 complet ed COVID Vaccine Moderna 12/04/20 Given Ambulat ory Pharmac y COVID Vaccine Moderna 2020 [id number] 207 complet ed COVID Vaccine Moderna 12/04/20 Given Ambulat ory Pharmac y COVID Vaccine Moderna 2020 [id number] 207 complet ed COVID Vaccine Moderna 11/03/20 Given Ambulat ory Pharmac y COVID Vaccine Moderna 2020 [id number] 207 complet ed COVID Vaccine Moderna 11/03/20 Given Ambulat ory Pharmac y influenza, injectable, quadrivalent- pf 2019 [id number] 150 Seqirus complet ed influenza , injectabl e, quadrival ent-pf 08/15/20 Given Ambulat ory Pharmac y influenza, injectable, quadrivalent- pf 2019 [id number] 077 150 Se[employer]irus complet ed influenza , injectabl e, quadrival ent-pf 08/15/20 Given Ambulat ory Pharmac y influenza, seasonal, injectable-pf 2018 [id number] 140 GlaxoSmithKli ne complet ed influenza , seasonal, injectabl e-pf 07/17/19 Given Ambulat ory Pharmac y Influenza, seasonal, injectable, preservative free 1 2018 [id number] 140 SmithKline (SKB) complet ed Influenza , seasonal, injectabl e, preservat tayla free DoD INFLUENZA, INJECTABLE, QUADRIVALENT, PRESERVATIVE FREE 2018 150 complet ed 02, Partner: [facility]. Administe red by: MARIA R GALEANO (SAU=[phone]). Partner 5 Lot#: [id number] Mfr: TechTurnit hKline; Dosage: 0.5 [facility] tetanus, diphtheria, acellular pertu is 2018 [id number] 115 sanofi pasteur complet ed tetanus, diphtheri a, acellular pertussis 05/12/19 Given Ambulat ory Pharmac y tetanus toxoid, reduced diphtheria toxoid, and acellular pertu is vaccine, adsorbed 4 2018 [id number] 115 Sanofi Pasteur (PMC) complet ed tetanus toxoid, reduced diphtheri a toxoid, and acellular pertussis vaccine, adsorbed DoD zoster vaccine live 2017 [id number] Seqirus complet ed zoster vaccine live 06/16/18 Given Ambulat ory Pharmac y zoster vaccine, live 1 2017 [id number] 121 Seqirus (SEQ) comple t ed zoster vaccine, live DoD influenza, seasonal, injectable 2017 [id number] 141 sanofi pasteur complet ed influenza , seasonal, injectabl e 06/14/18 Given Ambulat ory Pharmac y Influenza, seasonal, injectable 1 2017 [id number] 141 Sanofi Pasteur (PMC) complet ed Influenza , seasonal, injectabl e DoD measles virus vaccine 0 2017 05 () Not Given measles virus vaccine DoD rubella virus vaccine 0 2017 06 () Not Given rubella virus vaccine DoD mumps virus vaccine 0 2017 07 () Not Given mumps virus vaccine DoD typhoid Vi capsular polysaccharid e vac 2017 [id number] 101 sanofi pasteur complet ed typhoid Vi capsular polysacch aride vac 02/14/18 Given Ambulat ory Pharmac y typhoid Vi capsular polysaccharid e vaccine 1 2017 [id number] 101 Sanofi Pasteur (PMC) complet ed typhoid Vi capsular polysacch aride vaccine DoD zoster vaccine live 2017 [id number] 121 GlaxoSmithKli ne complet ed zoster vaccine live 01/12/18 Given Ambulat ory Pharmac y zoster vaccine, live 1 2017 [id number] 121 [facility] zoster vaccine, live DoD influenza, seasonal, injectable 2016 [id number] 141 Seqirus complet ed influenza , seasonal, injectabl e 08/13/17 Given Ambulat ory Pharmac y Influenza, seasonal, injectable 1 2016 [id number] 141 Seqirus (SEQ) comple t ed Influenza , seasonal, injectabl e DoD influenza, seasonal, injectable-pf 2015 [id number] 140 CSL Behring complet ed influenza , seasonal, injectabl e-pf 08/14/16 Given Ambulat ory Pharmac y Influenza, seasonal, injectable, preservative free 0 2015 [id number] 140 [employer] (CSL) complet ed Influenza , seasonal, injectabl e, preservat tayla free DoD influenza, seasonal, injectable-pf 2014 [id number] 140 [employer] Behring complet ed influenza , seasonal, injectabl e-pf 07/12/15 Given Ambulat ory Pharmac y Influenza, seasonal, injectable, preservative free 22 2014 [id number] 140 [facility] D[employer] Inc[employer] ([facility]) complet ed Influenza , seasonal, injectabl e, preservat tayla free DoD influenza, seasonal, injectable-pf 2013 [id number] 140 Novartis Pharmaceutica ls complet ed influenza , seasonal, injectabl e-pf 08/09/14 Given Ambulat ory Pharmac y Influenza, seasonal, injectable, preservative free 21 2013 [id number] 140 Novartis Pharmaceutica l Jeovanny. (NOV) complet ed Influenza , seasonal, injectabl e, preservat tayla free DoD influenza, seasonal, injectable 2012 [id number] 141 [facility] complet ed influenza , seasonal, injectabl e 07/27/13 Given Ambulat ory Pharmac y Influenza, seasonal, injectable 1 2012 [id number] 141 [facility] [employer] ([facility]) complet ed Influenza , seasonal, injectabl e DoD influenza, seasonal, injectable-pf 2011 [id number] 140 [facility] complet ed influenza , seasonal, injectabl e-pf 07/22/12 Given Ambulat ory Pharmac y Influenza, seasonal, injectable, preservative free 19 2011 [id number] 140 [facility] [employer]ure[employer] Inc[employer] ([facility]) complet ed Influenza , seasonal, injectabl e, preservat tayla free DoD influenza, seasonal, injectable-pf 2010 [id number] 140 Novartis Pharmaceutica ls complet ed influenza , seasonal, injectabl e-pf 06/04/11 Given Ambulat ory Pharmac y influenza, seasonal, injectable 2010 [id number] 141 complet ed influenza , seasonal, injectabl e 06/04/11 Given Ambulat ory Pharmac y Influenza, seasonal, injectable, preservative free 1 2010 140 Novartis Pharmaceutica l Jeovanny. (NOV) complet ed Influenza , seasonal, injectabl e, preservat tayla free DoD Influenza, seasonal, injectable 1 2010 [id number] 141 Transcribed (TRS) complet ed Influenza , seasonal, injectabl e DoD influenza, seasonal, injectable 2009 141 Novartis Pharmaceutica ls complet ed influenza , seasonal, injectabl e 07/24/10 Given Ambulat ory Pharmac y influenza virus vaccine,split 2009 [id number] P1 15 complet ed influenza virus vaccine,s plit 07/24/10 Given Ambulat ory Pharmac y influenza virus vaccine, split virus (incl. purified surface antigen)-reti red CODE 2 2009 [id number] P1 15 Transcribed (TRS) complet ed influenza virus vaccine, split virus (incl. purified surface antigen)- retired CODE DoD Influenza, seasonal, injectable 0 2009 141 Novartis Pharmaceutica l Jeovanny. (NOV) complet ed Influenza , seasonal, injectabl e DoD Novel influenza-H1N 1-09, injectable 2009 [id number] 1 127 Novartis Pharmaceutica ls complet ed Novel influenza -L4L4-80, injectabl e 12/02/09 Given Ambulat ory Pharmac y Novel influenza-H1N 1-09, injectable 1 2009 [id number] 1 127 Novartis Pharmaceutica l Jeovanny. (AUG) complet ed Novel influenza -J9G6-39, injectabl e DoD Novel influenza-H1N 1-09, injectable 2009 [id number] 1A 127 complet ed Novel influenza -Y7L7-78, injectabl e 12/01/09 Given Ambulat ory Pharmac y Novel influenza-H1N 1-09, injectable 1 2009 [id number] 1A 127 () complet ed Novel influenza -V7U9-83, injectabl e DoD influenza virus vaccine, live 2008 [id number] 111 [employer] comple t ed influenza virus vaccine, live 08/27/09 Given Ambulat ory Pharmac y influenza virus vaccine, live, attenuated, for intranasal use 1 2008 [id number] 111 [employer]. (MED) complet ed influenza virus vaccine, live, attenuate d, for intranasa l use DoD tetanus, diphtheria, acellular pertu is 2008 [id number] 115 sanofi pasteur complet ed tetanus, diphtheri a, acellular pertussis 04/18/09 Given Ambulat ory Pharmac y tetanus toxoid, reduced diphtheria toxoid, and acellular pertu is vaccine, adsorbed 1 2008 [id number] 115 Sanofi Pasteur (PMC) complet ed tetanus toxoid, reduced diphtheri a toxoid, and acellular pertussis vaccine, adsorbed DoD influenza virus vaccine,split 2007 [id number] 2AA 15 GlaxoSmithKli ne complet ed influenza virus vaccine,s plit 08/23/08 Given Ambulat ory Pharmac y influenza virus vaccine, split virus (incl. purified surface antigen)-reti red CODE 1 2007 [id number] 2AA 15 SmithKline ([facility]) complet ed influenza virus vaccine, split virus (incl. purified surface antigen)- retired CODE DoD typhoid Vi capsular polysaccharid e vac 2007 [id number] 101 sanofi pasteur complet ed typhoid Vi capsular polysacch aride vac 07/13/08 Given Ambulat ory Pharmac y typhoid Vi capsular polysaccharid e vaccine 1 2007 [id number] 101 Sanofi Pasteur ([facility]) complet ed typhoid Vi capsular polysacch aride vaccine DoD influenza virus vaccine,split 2006 [id number] 3AA 15 GlaxoSmithKli ne complet ed influenza virus vaccine,s plit 09/03/07 Given Ambulat ory Pharmac y influenza virus vaccine, split virus (incl. purified surface antigen)-reti red CODE 1 2006 [id number] 3AA 15 SmithKline ([facility]) complet ed influenza virus vaccine, split virus (incl. purified surface antigen)- retired CODE DoD influenza virus vaccine,split 2005 [id number] 15 Unknown complet ed influenza virus vaccine,s plit 09/10/06 Given Ambulat ory Pharmac y influenza virus vaccine, split virus (incl. purified surface antigen)-reti red CODE 1 2005 [id number] 15 Other (OTH) complet ed influenza virus vaccine, split virus (incl. purified surface antigen)- retired CODE [facility] typhoid vaccine, inactivated 2005 [id number] 101 sanofi pasteur complet ed typhoid vaccine, inactivat ed 03/11/06 Given Ambulat ory Pharmac y typhoid vaccine, parenteral, other than acetone-kille d, dried 1 2005 [id number] 41 Sanofi Pasteur ([facility]) complet ed typhoid vaccine, parentera l, other than acetone-k illed, dried DoD influenza virus vaccine,split 2004 [id number] 15 sanofi pasteur complet ed influenza virus vaccine,s plit 08/16/05 Given Ambulat ory Pharmac y influenza virus vaccine, split virus (incl. purified surface antigen)-reti red CODE 1 2004 [id number] 15 Sanofi Pasteur ([facility]) complet ed influenza virus vaccine, split virus (incl. purified surface antigen)- retired CODE DoD FLU,3 YRS (HISTORICAL) 2004 MARILIN RAMIRES 88 complet ed [facility] influenza virus vaccine, live 2004 [id number] 111 [employer] comple t ed influenza virus vaccine, live 10/16/04 Given Ambulat ory Pharmac y influenza virus vaccine, live, attenuated, for intranasal use 0 2004 [id number] 111 [employer] (MED) complet ed influenza virus vaccine, live, attenuate d, for intranasa l use [facility] typhoid vaccine, inactivated 2003 [id number] 101 sanofi pasteur complet ed typhoid vaccine, inactivat ed 04/18/04 Given Ambulat ory Pharmac y typhoid vaccine, parenteral, other than acetone-kille d, dried 0 2003 [id number] 41 Sanofi Pasteur ([facility]) complet ed typhoid vaccine, parentera l, other than acetone-k illed, dried [facility] tuberculin purified protein derivative 2003 [id number] 96 sanofi pasteur complet ed tuberculi n purified protein derivativ e 11/15/03 Given Ambulat ory Pharmac y tuberculin purified protein derivative 2003 [id number] 96 sanofi pasteur complet ed tuberculi n purified protein derivativ e 11/15/03 Given Ambulat ory Pharmac y anthrax vaccine 2003 [id number] 24 [employer] complet ed anthrax vaccine 11/15/03 Given Ambulat ory Pharmac y anthrax vaccine 6 2003 [id number] 24 [employer] [place] ([facility]) complet ed anthrax vaccine DoD influenza virus vaccine, live 2003 [id number] 111 [employer] comple t ed influenza virus vaccine, live 11/01/03 Given Ambulat ory Pharmac y influenza virus vaccine, live, attenuated, for intranasal use 0 2003 [id number] 111 [employer] (MED) complet ed influenza virus vaccine, live, attenuate d, for intranasa l use [facility] influenza virus vaccine, whole virus 2002 [id number] 16 Novartis Pharmaceutica ls complet ed influenza virus vaccine, whole virus 08/05/03 Given Ambulat ory Pharmac y influenza virus vaccine, whole virus 0 2002 [id number] 16 [employer] (PWJ) complet ed influenza virus vaccine, whole virus DoD vaccinia (smallpox) vaccine 2002 [id number] 75 [facility] complet ed vaccinia (smallpox ) vaccine 12/09/02 Given Ambulat ory Pharmac y anthrax vaccine 2002 [id number] 24 [employer] complet ed anthrax vaccine 12/09/02 Given Ambulat ory Pharmac y meningococcal polysaccharid e (MPSV4) 2002 [id number] 32 sanofi pasteur complet ed meningoco ccal polysacch aride (MPSV4) 12/09/02 Given Ambulat ory Pharmac y anthrax vaccine 5 2002 [id number] 24 [employer] [place] (MIP) complet ed anthrax vaccine DoD meningococcal polysaccharid e vaccine (MPSV4) 0 2002 [id number] 32 Sanofi Pasteur (PMC) complet ed meningoco ccal polysacch aride vaccine (MPSV4) DoD vaccinia (smallpox) vaccine 0 2002 [id number] 75 [facility] ([facility]) complet ed vaccinia (smallpox ) vaccine DoD PNEUMOCOCCAL POLYSACCHARID E [id number] 2001 33 complet ed [facility] yellow fever vaccine 2001 [id number] 37 sanofi pasteur complet ed yellow fever vaccine 09/14/02 Given Ambulat ory Pharmac y yellow fever vaccine 0 2001 [id number] 37 Sanofi Pasteur (PMC) complet ed yellow fever vaccine DoD tuberculin purified protein derivative 2001 [id number] 96 sanofi pasteur complet ed tuberculi n purified protein derivativ e 09/09/02 Given Ambulat ory Pharmac y tuberculin purified protein derivative 2001 [id number] 96 sanofi pasteur complet ed tuberculi n purified protein derivativ e 09/09/02 Given Ambulat ory Pharmac y influenza virus vaccine, whole virus 2001 [id number] 16 sanofi pasteur complet ed influenza virus vaccine, whole virus 09/09/02 Given Ambulat ory Pharmac y influenza virus vaccine, whole virus 0 2001 [id number] 16 Sanofi Pasteur ([facility]) complet ed influenza virus vaccine, whole virus DoD INFLUENZA (HISTORICAL) 2001 88 complet ed [employer] influenza virus vaccine, whole virus 2000 [id number] 16 sanofi pasteur complet ed influenza virus vaccine, whole virus 09/08/01 Given Ambulat ory Pharmac y influenza virus vaccine, whole virus 0 2000 [id number] 16 Sanofi Pasteur ([facility]) complet ed influenza virus vaccine, whole virus DoD tuberculin purified protein derivative 2000 [id number] 96 [facility] complet ed tuberculi n purified protein derivativ e 01/13/01 Given Ambulat ory Pharmac y tuberculin purified protein derivative 2000 [id number] 96 [facility] tuberculi n purified protein derivativ e 01/13/01 Given Ambulat ory Pharmac y influenza virus vaccine, whole virus 2000 16 Unknown complet ed influenza virus vaccine, whole virus 10/13/00 Given Ambulat ory Pharmac y INFLUENZA, UNSPECIFIED FORMULATION 2000 88 complet ed [facility] influenza virus vaccine, whole virus 0 2000 16 Unknown (UNK) comple t ed influenza virus vaccine, whole virus [facility] TD(ADULT) UNSPECIFIED FORMULATION 2000 139 complet ed [facility] tuberculin purified protein derivative 1999 [id number] 96 [facility] ed tuberculi n purified protein derivativ e 08/15/00 Given Ambulat ory Pharmac y tuberculin purified protein derivative 1999 [id number] 96 [facility] ed tuberculi n purified protein derivativ e 08/15/00 Given Ambulat ory Pharmac y anthrax vaccine 1999 [id number] 24 [employer] complet ed anthrax vaccine 10/29/99 Given Ambulat ory Pharmac y anthrax vaccine 4 1999 [id number] 24 [employer] [facility] ([facility]) complet ed anthrax vaccine DoD influenza virus vaccine, whole virus [id number] 16 [employer] complet ed influenza virus vaccine, whole virus 07/10/99 Given Ambulat ory Pharmac y influenza virus vaccine, whole virus 0 [id number] 16 [employer] (NATHALIE) complet ed influenza virus vaccine, whole virus DoD anthrax vaccine 1998 24 [employer] complet ed anthrax vaccine 04/16/99 Given Ambulat ory Pharmac y anthrax vaccine 3 1998 24 [facility] complet ed anthrax vaccine DoD anthrax vaccine 1998 [id number] 24 [employer] complet ed anthrax vaccine 04/02/99 Given Ambulat ory Pharmac y anthrax vaccine 2 1998 [id number] 24 [facility] complet ed anthrax vaccine DoD tuberculin purified protein derivative 1998 [id number] 96 [facility] complet ed tuberculi n purified protein derivativ e 03/17/99 Given Ambulat ory Pharmac y tuberculin purified protein derivative 1998 [id number] 96 [facility] tuberculi n purified protein derivativ e 03/17/99 Given Ambulat ory Pharmac y typhoid vaccine, live, oral 1998 25 complet ed typhoid vaccine, live, oral 03/16/99 Given Ambulat ory Pharmac y anthrax vaccine 1998 [id number] 24 [employer] complet ed anthrax vaccine [...] a toxoid) DoD anthrax vaccine 1 1998 [id number] 24 [facility] complet ed anthrax vaccine DoD typhoid vaccine, live, oral 0 1998 25 () complet ed typhoid vaccine, live, oral DoD measles/mumps /rubella virus vaccine 1997 [id number] 03 [employer] complet ed measles/m umps/rube lla virus vaccine 09/01/98 Given Ambulat ory Pharmac y measles, mumps and rubella virus vaccine 0 1997 [id number] 03 [employer] (AB) complet ed measles, mumps and rubella virus vaccine DoD influenza virus vaccine, whole virus [id number] 16 [facility] complet ed influenza virus vaccine, whole virus 07/29/98 Given Ambulat ory Pharmac y influenza virus vaccine, whole virus 0 [id number] [id number] 16 [facility] (CON) complet ed influenza virus vaccine, whole virus DoD influenza virus vaccine, whole virus 19962268 [id number] 16 P[employer] complet ed influenza virus vaccine, whole virus 08/16/97 Given Ambulat ory Pharmac y influenza virus vaccine, whole virus 0 [id number] [id number] 16 [employer] (Inactive) ([place]) complet ed influenza virus vaccine, whole virus DoD hepatitis A adult vaccine 1996 [id number] 52 GlaxoSmithKli ne complet ed hepatitis A adult vaccine 05/17/97 Given Ambulat ory Pharmac y hepatitis A vaccine, adult dosage 2 1996 [id number] 6 52 SmithKline (SKB) complet ed hepatitis A vaccine, adult dosage DoD meningococcal polysaccharid e (MPSV4) 19966514 [id number] 32 PFIZER complet ed meningoco ccal polysacch aride (MPSV4) 11/09/96 Given Ambulat ory Pharmac y hepatitis A adult vaccine 19960836 [id number] 52 PFIZER complet ed hepatitis A adult vaccine 11/09/96 Given Ambulat ory Pharmac y meningococcal polysaccharid e vaccine (MPSV4) 0 19964957 [id number] 32 [employer]-Ayerst (Inactive) ([place]) complet ed meningoco ccal polysacch aride vaccine (MPSV4) DoD hepatitis A vaccine, adult dosage 1 19969387 [id number] 52 [employer] (Inactive) ([place]) complet ed hepatitis A vaccine, adult dosage DoD INFLUENZA (HISTORICAL) 1995 VALERIANO CHANEL 88 complet ed [place] typhoid, parenteral, AKD 1994 [id number] 6 53 [facility] complet ed typhoid, parentera l, AKD 09/10/95 Given Ambulat ory Pharmac y typhoid vaccine, parenteral, acetone-kille d, dried ([place] ) 2 1994 [id number] 6 53 [facility] (SKB) complet ed typhoid vaccine, parentera l, acetone-k illed, dried ([place] ) DoD immune globulin, unspecified formulation 0 1994 14 () complet ed immune globulin, unspecifi ed formulati on DoD hepatitis B adult vaccine 19920832 [id number] 43 PFIZER complet ed hepatitis B adult vaccine 12/13/92 Given Ambulat ory Pharmac y hepatitis B vaccine, adult dosage 3 19921068 [id number] 43 Wyeth-Ayerst (Inactive) ([place]) complet ed hepatitis B vaccine, adult dosage DoD cholera vaccine unspecified formula [id number] 26 PFIZER complet ed cholera vaccine unspecifi ed formula 01/11/92 Given Ambulat ory Pharmac y cholera vaccine, unspecified formulation 0 [id number] 26 [employer] (Inactive) ([place]) complet ed cholera vaccine, unspecifi ed formulati on DoD yellow fever vaccine [id number] PFIZER complet ed yellow fever vaccine 09/15/91 Given Ambulat ory Pharmac y yellow fever vaccine 0 [id number] Wyeth-Ayerst (Inactive) ([place]) complet ed yellow fever vaccine DoD poliovirus [...] ADM Date DC Date Status Disposition Source [address] [place] [address]([facility]) OUTPATIENT [id number] LOD-[place] dder cancer BETO MARES 01/15 Released w/o Limitations [address] [place] [address]([facility]) [address] [place] [address]([facility]) TELE CONSULT [id number] Notes Entered by: PERRY GONZALEZ 19 Jan 2012 0743 ------- ------- ------- ------- -- GIL AHRRINGTON 01/[address] [place] [address]([facility]) [address] [place] [address]([facility]) TELE CONSULT [id number] Notes Entered by: BONITA KIM 07 Mar 2012 0803 ------- ------- ------- ------- -- BONITA Bey 03/[address] [place] [address]([facility]) [address] [place] [address]([facility]) TELE CONSULT [id number] Notes Entered by: BONITA KIM 09 Jul 2012 1254 ------- ------- ------- ------- -- Renew - BETO Merchant 07/[address] [place] [address]([facility]) [address] [place] [address]([facility]) TELE CONSULT [id number] Notes Entered by: PERRY GONZALEZ 02 Jan 2013 1116 ------- ------- ------- ------- -- MICARE: BONITA Finch 01/02 [facility]) [address] [place] [address]([facility]) TELE CONSULT [id number] Notes Entered by: PERRY GONZALEZ 18 Jan 2013 1524 ------- ------- ------- ------- -- MICARE: Sheron KIM BONITA 01/[address] [place] [address]([facility]) [address] [place] [address]([facility]) TELE CONSULT [id number] Notes Entered by: BONITA KIM 2013 0756 ------- ------- ------- ------- -- MICARE request for sheron KIM BONITA 12/03 [facility](R eferral [facility]) [address] [place] [address]([facility]) TELE CONSULT [id number] Notes Entered by: BONITA KIM 25 Apr 2014 1348 ------- ------- ------- ------- -- LOD renewal JULIO BONITA 04/[address] [place] [address]([facility]) [address] [place] [address]([facility]) OUTPATIENT [id number] LOD follow up history of bladder cancer OG RIVAS 04/28 Released w/o Limitations [address] [place] [address]([facility]) [address] [place] [address]([facility]) TELE CONSULT [id number] Notes Entered by: Sg FATIMA 30 Apr 2014 0959 ------- ------- ------- ------- -- Network Results -Urolog y- LE, NORMA T 04/30 [facility]) [facility]) OUTPATIENT [id number] LOD F/U OG RIVAS 03/04 Released w/o Limitations [facility]) [facility]) TELE CONSULT [id number] ELANKrys BONITA 05/21 [facility]) [facility]) OUTPATIENT [id number] LOD - F/u referra l to urology LE, RAFAELMILANO T 03/23 Released w/o Limitations [facility]) [facility]) TELE CONSULT [id number] Notes Entered by: WASHINGTON MOORE 20 May 2016 1532 ------- ------- ------- ------- -- WASHINGTON Segovia 05/20 [facility]) [address] [place] [address]([facility]) TELE CONSULT [id number] Notes Entered by: Daisha LIN 07 Oct 2016 1206 ------- ------- ------- ------- -- LOD Network Results Urology Jun 24 LE, RAFAELJOSE T 10/07 [facility]) [facility]) OUTPATIENT [id number] LOD - Urology LE, RAFAELMILANO T 03/23 Released w/o Limitations [facility]) [facility]) OUTPATIENT [id number] f/u LOD-WIL Lewis 06/19 Released w/o Limitations [facility]) [employer]([facility]) TELE CONSULT [id number] Notes Entered by: ME JANNY TOPETE 11 Feb 2019 1352 ------- ------- ------- ------- -- Network Results Urology [id number] WIL ARNETT VERO 02/11 [facility]) [facility]) TELE CONSULT [id number] Notes Entered by: GOOD MCBRIDE 30 Jul 2019 1558 ------- ------- ------- ------- -- Sheron Barger - KERWIN Maynard 07/30 Immediate Referral [facility]) [facility]) TELE CONSULT [id number] Notes Entered by: SENIA RODRIGUEZ 24 Jan 2020 1010 ------- ------- ------- ------- -- Network Results Uro [id number] WIL ARNETT VERO 01/23 [facility]) [facility]) TELE CONSULT [id number] Notes Entered by: GOOD MCBRIDE 30 Jun 2020 1027 ------- ------- ------- ------- -- Backdat ed MARY Turner 06/30 Other Not Elsewhere Classified [facility]) Procedures Combined list of: 1) Procedures from Department of Veterans Affairs facilities going back up to thelast 18 months, not all VA non-surgical procedures are included; 2) All procedures from the Department of Defense facilities. Procedure Procedure Type Code Date Perfomer Comments Sourc e No data available for this section Ambulatory Pharmacy Non-Physician Phone Call To Patient/Provide r Brief (5-10min) Non-Physician Phone Call To Patient/Provide r Brief (5-10min) [id number] MARY SALGADO [facility] TELE ASSESS & MGT SRV PROV QUAL NONPHYS HLTH CARE PRO TO EST PAT,PARENT,GUAR D NOT ORIG REL ASSESS & MGT SRV PROV W/IN PREV 7 DAYS NOR LEAD ASSESS & MGT SRV/PX W/IN NXT 24 HR/SOON APT;5-10 MIN MED DIS 06/30/2020 [facility] Social History Combined list of available smoking, tobacco, and other social history from Department of Defense and Veterans Affairs facilities. Social History Type Response Date Comment Sour e Tobacco smoking status NHIS LIFETIME NON-SMOKER 03/01/2022 [facility] History of tobacco use LIFETIME NON-SMOKER 04/22/2005 [facility] This section is an empty social [...] Plan No data available for this section 02/05/2025 Ambulatory Pharmacy Functional Status Combined list of recent functional and cognitive assessments recorded at [facility] Defense and [facility] [place] Functional [place] Measurement (FIM) Scale: 1 = Total Assistance (Subject = 0% +), 2 = Maximal Assistance (Subject = 25% +), 3 = Moderate Assistance (Subject = 50% +), 4 = Minimal Assistance (Subject = 75% +), 5 = Supervision, 6 = Modified [place] (Device), 7 = Complete [place] (Timely, Safely). Assessment Date/Time Source Assessment Type Assessment Skill Assessment Score Assessment Details No data available for this section
--- OUTSIDE RECORDS SUMMARY | 2025-02-05 11:39 | XMS_ITS | Clinical Summary ---
Author Organization [facility] ity Address [address] [place] [address] Care Team Providers Care Account Manager [id number] Name Role Phone Unavailable Primary Care Provider [...] Vaccines (1 of 2) 2013 COVID-19 Vaccine (1 - 2023-2 5 season) 2024 Influenza Vaccine (Season Ended) 2025 RSV Immunization Adult Patie nts (1 - 1-dose 75+ series) 2038 HIB [...] age to complete this topic Meningococcal B Vaccine Aged Out No l onger eligible based on patient's age to complete [...]
== END 2025-02-05 11:32 | disposition home or self-care (01) ==
LOC: HO.HSMS 10:21
PROVIDERS: PCP Internal Medicine; Visit Provider Physician Assistant Medical
DX: G47.33 Obstructive sleep apnea (adult) (pediatric) (principal); R35.1 Nocturia
CPT/HCPCS: 99214

== ENCOUNTER → 2025-02-05 10:20 | Outpatient (BNVA) | payer OTHER, SELFPAY | PROVIDERS: PCP Internal Medicine; Visit Provider Physician Assistant Medical | DX: G47.33 Obstructive sleep apnea (adult) (pediatric) (principal); N39.41 Urge incontinence; R35.1 Nocturia; Z99.89 Dependence on other enabling machines and devices | CPT/HCPCS: 99212 ==

== ENCOUNTER 2025-05-05 10:55 | Outpatient (AMB) | payer OTHER, SELFPAY ==
--- NOTE | 2025-05-05 10:57 | MHC.OFFVIS ---
Vital Signs 05/05/25 10:58 Height 5 ft 11 in Intake Visit Reasons: 1 year Allergies oxybutynin Allergy (Intermediate, Verified 05/05/25 11:02) nausea, headaches, blurry vision ibuprofen (From Motrin) Allergy (Unknown, Verified 05/05/25 11:02) NAUSEA & VOMITING, GI upset Medication List - Last Reconciled 05/05/25 by Promise Scott CNP candesartan 4 mg PO DAILY coenzyme Q10 (Co Q-10) 10 mg PO DAILY gabapentin mg PO krill oil mg PO melatonin mg PO .qhs mirtazapine 7.5 mg PO BEDTIME [id number]-[id number] mcg (Centrum Silver Ultra Men's) 1 tab PO DAILY omega-3 fatty acids 500 mg PO DAILY HPI Comments Details: 59-year-old man with JO-ANN on CPAP and axonal PN of unknown cause and associated pain. He was doing okay. He went to neuro PT at [facility] [place]24 which helped, but he was noticing that he seemed to be tripping and was asking for referral back there. He was still walking almost every day. No falls. Pain would come and go, worse depending on weather. He was using gabapentin 100-200mg as needed which helped. He was also occasionally using lidocaine patches to LLE when pain was more which also seemed to help. Numbness and tingling to left lower leg was still there. Sleep was okay, using CPAP. 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 Maternal Grandmother No problems noted. Paternal Grandfather No problems noted. Paternal Grandmother No problems noted. Brother No problems noted. 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[employer], rt hand Cognitive needs: No Hearing needs: No Vision needs: Yes Review of Systems Const Denies chills, Denies daytime sleepiness, Denies difficulty sleeping, Denies fatigue, Denies fever(s), Denies frequent falls, Denies headache(s), Denies increased appetite, Denies poor appetite, Denies snoring, Denies weakness, Denies weight gain and Denies weight loss Eyes Denies loss of vision ENT Denies vertigo, Denies dizziness and Denies headache(s) Card Denies chest pain at rest, Denies chest pain with activity, Denies syncope, Denies leg edema and Denies palpitations Resp Denies snoring GI Denies constipation, Denies heartburn, Denies diarrhea and Denies nausea Denies urinary frequency, Denies urinary incontinence and Denies urinary urgency Musc Reports abnormal gait (balance difficulty), Reports numbness and Reports tingling Skin/Breast Denies dry skin and Denies rash Neuro Reports abnormal gait (balance difficulty), Denies vertigo, Denies dizziness, Denies syncope, Denies frequent falls, Denies headache(s), Denies lack of coordination, Denies loss of vision, Denies memory loss, Reports numbness, Denies restless legs, Denies seizure-like activity, Reports tingling, Reports paresthesias, Denies tremor(s) and Denies weakness Psych Denies anxiety, Denies depression, Denies auditory hallucinations, Denies memory loss, Denies visual hallucinations and Denies suicidal ideation Endo Denies fatigue and Denies palpitations Physical Exam Const Other: General Appearance:? normal, in no acute distress. Skin:? no rashes, no significant birthmarks. Heart:? S1, S2 normal, no murmurs. Lungs:? clear anteriorly and posteriorly. Extremities:? no edema. Psych:? alert, oriented, cognitive function intact, cooperative with exam. Neuro Other: Mental Status:?Normal attention, orientation, memory and affect.? Cranial Nerves:?Pupils are equal, round and reactive to light. External occular muscles are intact. Visual chirsty are full. Face is symmetrical. Facial sensations are normal. Tongue is midline. Palate elevates symmetrically. Shoulder shrugging is normal. Hearing to bedside conversation is normal. Sensory Exam:?....? Coordination:?No ataxia,?no titubation.? Gait Exam: Within normal limits. Cerebellar Signs:?Ybjxla-mu-jufh and femz-eo-xvne is normal.? Extrapyramidal System:?No tremor, rigidity with normal facial expressions.? Pronator Drift:?Not present.? Involuntary Movements:?No tremors seen.? Speech:?Normal.? 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 MRI LS spine at [facility] in Sep 2022: No sig pathology Assessment & Plan Assessment & Plan (1) Peripheral neuropathy: Code(s): G62.9 - Polyneuropathy, unspecified Category: Medical Qualifiers: Peripheral neuropathy type: polyneuropathy, unspecified Qualified Code(s): G62.9 - Polyneuropathy, unspecified Plan: Continue gabapentin 100mg 1-2 capsules as needed. PT referral placed. Stay physically active. Orders: Orders PT Evaluation and Treatment Today G62.9 - Polyneuropathy, unspecified Medications: New gabapentin 100 mg orally 1-2 capsules/day; 180 caps 1RF 90 days Discontinued gabapentin Discontinued Reason: Order PO Coding Level of Care Code Est Pt Level 4 (24537) Diagnoses Peripheral polyneuropathy G62.9 Peripheral neuropathy type: polyneuropathy, unspecified
--- OUTSIDE RECORDS SUMMARY | 2025-05-05 12:12 | XMS_ITS | Continuity of Care Document ---
Author Name [facility] Organization [facility] Care Team Providers Care Care Navigator Name Role Phone [facility] Unavailable Unavailable Problems Combined list of problems from [facility] and [facility] facilities. It does not include entries that were removed or entered in error. Problem Status Onset Date Problem Type Date of Resolution Comments Source Personal history of malignant neoplasm of bladder Active 03/29/20 16 Condition [facility] Incision and drainage of perirectal abscess Inactive 06/13/19 97 Condition Jun 26, 1997 Entered By: JONATHON WALTER Comment: on [id number] [facility] Perianal abscess Inactive 06/13/19 97 Condition [facility] visit for: administrative purpose Inactive Condition [facility] BLADDER CANCER Active Condition [facility] Acute appendicitis Active Condition [facility] VIDE[facility] Appendicitis * (ICD-9-CM 541.) Active Condition [facility] Attention deficit disorder of childhood without mention of hyperactivity (ICD-9- Active Condition [facility] ATTN DEFIC NONHYPERACT Active Condition [facility] CERVICALGIA Active Condition [facility] Low Back Pain Active Condition [facility] PROLONGED PTSD Active Condition [facility] THROMBOPHLEBITIS NEC Active Condition [facility] 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 It does not include entries that were removed or entered in error. Substance Category Reaction Severity Reaction type Status Date Reported Comments Source BEE STINGS Propensity to adverse reaction (finding) active 5 [facility] ibuprofen Propensity to adverse reactions to drug GI Reaction Active 2 [facility] Upset Unknown Organization LACTOSE Propensity to adverse reactions to substance (finding) active 5 [facility] MOTRIN Propensity to adverse reactions to drug (finding) active 8 [facility] MOTRIN (IBUPROFEN ) Drug allergy (disorder) GI Reaction active 2 [employer] Immunizations Combined list of available immunizations from the Department of Defense and Veterans Affairs facilities. Immunization Series Date Given Administered By Site Reaction Lot Number CVX Code Drug Deputy Assessor Status Comments Source influenza, injectable, quadrivalent- pf 2021 [id number] 150 GlaxoSmithKli ne complet ed influenza , injectabl e, quadrival ent-pf 07/11/22 Given Ambulat ory Pharmac y influenza, injectable, quadrivalent- pf 2021 [id number] 150 GlaxoSmithKli ne complet ed influenza , injectabl e, quadrival ent-pf 07/11/22 Given Ambulat ory Pharmac y SARS-CoV-2 (COVID-19) mRNA-Bivalent 2021 [id number] 229 complet ed SARS-CoV- 2 (COVID-19 ) mRNA-Biva lent 06/19/22 Given Ambulat ory Pharmac y SARS-CoV-2 (COVID-19) mRNA-Bivalent 2021 [id number] 229 complet ed SARS-CoV- 2 (COVID-19 ) mRNA-Biva lent 06/19/22 Given Ambulat ory Pharmac y COVID Vaccine Moderna 2021 [id number] 207 complet ed COVID Vaccine Moderna 10/21/21 Given Ambulat ory Pharmac y COVID Vaccine Moderna 2021 [id number] 207 complet ed COVID Vaccine Moderna 10/21/21 Given Ambulat ory Pharmac y influenza, injectable, quadrivalent 2020 [id number] 158 GlaxoSmithKli ne complet ed influenza , injectabl e, quadrival ent 06/24/21 Given Ambulat ory Pharmac y influenza, injectable, quadrivalent 2020 [id number] 158 GlaxoSmithKli ne complet ed influenza , injectabl e, quadrival ent 06/24/21 Given Ambulat ory Pharmac y COVID Vaccine Moderna 2020 [id number] 207 complet ed COVID Vaccine Moderna 12/04/20 Given Ambulat ory Pharmac y COVID Vaccine Moderna 2020 [id number] 207 complet ed COVID Vaccine Moderna 12/04/20 Given Ambulat ory Pharmac y COVID Vaccine Moderna 2020 [id number] 207 complet ed COVID Vaccine Moderna 11/03/20 Given Ambulat ory Pharmac y COVID Vaccine Moderna 2020 [id number] 207 complet ed COVID Vaccine Moderna 11/03/20 Given Ambulat ory Pharmac y influenza, injectable, quadrivalent- pf 2019 [id number] 150 [employer] complet ed influenza , injectabl e, quadrival ent-pf 08/15/20 Given Ambulat ory Pharmac y influenza, injectable, quadrivalent- pf 2019 [id number] 077 150 Seqirus complet ed influenza , [...] FREE 2018 150 complet ed 02, Partner: [facility]. Administe red by: MARIA R GALEANO (JSS=[phone]). Partner 5 Lot#: [id number] Mfr: Archiveit hKline; Dosage: 0.5 PROVIDE IAE [facility] tetanus, diphtheria, acellular pertu is 2018 [id number] 115 sanofi pasteur complet ed tetanus, diphtheri a, acellular pertussis 05/12/19 Given Ambulat ory Pharmac y tetanus toxoid, reduced diphtheria toxoid, and acellular pertu is vaccine, adsorbed 4 2018 [id number] 115 Sanofi Pasteur (PMC) complet ed tetanus toxoid, reduced diphtheri a toxoid, and acellular pertussis vaccine, adsorbed DoD zoster vaccine live 2017 [id number] 121 Se[employer]irus complet ed zoster vaccine live 06/16/18 Given Ambulat ory Pharmac y zoster vaccine, live 1 2017 [id number] 121 Seqirus (SEQ) comple t ed zoster vaccine, live DoD influenza, seasonal, injectable 2017 [id number] 141 sanofi pasteur complet ed influenza , seasonal, injectabl e 06/14/18 Given Ambulat ory Pharmac y Influenza, seasonal, injectable 1 2017 [id number] 141 Sanofi Pasteur (PMC) complet ed Influenza , seasonal, injectabl e DoD measles virus vaccine 0 2017 05 () Not Given measles virus vaccine DoD rubella virus vaccine 0 2017 06 () Not Given rubella virus vaccine DoD mumps virus vaccine 0 2017 07 () Not Given mumps virus vaccine DoD typhoid Vi capsular polysaccharid e vac 2017 [id number] 101 sanofi pasteur complet ed typhoid Vi capsular polysacch aride vac 02/14/18 Given Ambulat ory Pharmac y typhoid Vi capsular polysaccharid e vaccine 1 2017 [id number] 101 Sanofi Pasteur (PMC) complet ed typhoid Vi capsular polysacch aride vaccine DoD zoster vaccine live 2017 [id number] 03 121 GlaxoSmithKli ne complet ed zoster vaccine live 01/12/18 Given Ambulat ory Pharmac y zoster vaccine, live 1 2017 [id number] 03 121 [employer] (SKB) complet ed zoster vaccine, live DoD influenza, seasonal, injectable 2016 [id number] 141 Seqirus complet ed influenza , seasonal, injectabl e 08/13/17 Given Ambulat ory Pharmac y Influenza, seasonal, injectable 1 2016 [id number] 141 Seqirus (SEQ) comple t ed Influenza , seasonal, injectabl e DoD influenza, seasonal, injectable-pf 2015 [id number] 140 CSL [employer]ring complet ed influenza , seasonal, injectabl e-pf 08/14/16 Given Ambulat ory Pharmac y Influenza, seasonal, injectable, preservative free 0 2015 [id number] 140 [employer] (CSL) complet ed Influenza , seasonal, injectabl e, preservat tayla free DoD influenza, seasonal, injectable-pf 2014 [id number] 140 [employer] complet ed influenza , seasonal, injectabl e-pf 07/12/15 Given Ambulat ory Pharmac y Influenza, seasonal, injectable, preservative free 22 2014 [id number] 140 [facility] [employer] ([facility]) complet ed Influenza , seasonal, injectabl e, preservat tayla free DoD influenza, seasonal, injectable-pf 2013 [id number] 140 Novartis Pharmaceutica ls complet ed influenza , seasonal, injectabl e-pf 08/09/14 Given Ambulat ory Pharmac y Influenza, seasonal, injectable, preservative free 21 2013 [id number] 140 Novartis Pharmaceutica l Jeovanny. (NOV) complet ed Influenza , seasonal, injectabl e, preservat tayla free DoD influenza, seasonal, injectable 2012 [id number] 141 [facility] complet ed influenza , seasonal, injectabl e 07/27/13 Given Ambulat ory Pharmac y Influenza, seasonal, injectable 1 2012 [id number] 141 [facility] [employer] ([facility]) complet ed Influenza , seasonal, injectabl e DoD influenza, seasonal, injectable-pf 2011 [id number] 140 [facility] complet ed influenza , seasonal, injectabl e-pf 07/22/12 Given Ambulat ory Pharmac y Influenza, seasonal, injectable, preservative free 19 2011 [id number] 140 [facility] [employer] ([facility]) complet ed Influenza , seasonal, injectabl e, preservat tayla free DoD influenza, seasonal, injectable-pf 2010 [id number] 140 Novartis Pharmaceutica ls complet ed influenza , seasonal, injectabl e-pf 06/04/11 Given Ambulat ory Pharmac y influenza, seasonal, injectable 2010 [id number] 141 complet ed influenza , seasonal, injectabl e 06/04/11 Given Ambulat ory Pharmac y Influenza, seasonal, injectable, preservative free 1 2010 140 Novartis Pharmaceutica l Jeovanny. (NOV) complet ed Influenza , seasonal, injectabl e, preservat tayla free DoD Influenza, seasonal, injectable 1 2010 [id number] 141 Transcribed (TRS) complet ed Influenza , seasonal, injectabl e DoD influenza, seasonal, injectable 2009 141 Novartis Pharmaceutica ls complet ed influenza , seasonal, injectabl e 07/24/10 Given Ambulat ory Pharmac y influenza virus vaccine,split 2009 [id number] P1 15 complet ed influenza virus vaccine,s plit 07/24/10 Given Ambulat ory Pharmac y influenza virus vaccine, split virus (incl. purified surface antigen)-reti red CODE 2 2009 [id number] P1 15 Transcribed (TRS) complet ed influenza virus vaccine, split virus (incl. purified surface antigen)- retired CODE DoD Influenza, seasonal, injectable 0 2009 141 Novartis Pharmaceutica l Jeovanny. (NOV) complet ed Influenza , seasonal, injectabl e DoD Novel influenza-H1N 1-09, injectable 2009 [id number] 1 127 Novartis Pharmaceutica ls complet ed Novel influenza -R1X7-16, injectabl e 12/02/09 Given Ambulat ory Pharmac y Novel influenza-H1N 1-09, injectable 1 2009 [id number] 1 127 Novartis Pharmaceutica l Jeovanny. (AUG) complet ed Novel influenza -S6X1-60, injectabl e DoD Novel influenza-H1N 1-09, injectable 2009 [id number] 1A 127 complet ed Novel influenza -V7T1-99, injectabl e 12/01/09 Given Ambulat ory Pharmac y Novel influenza-H1N 1-09, injectable 1 2009 [id number] 1A 127 () complet ed Novel influenza -K9M8-82, injectabl e DoD influenza virus vaccine, live 2008 [id number] 111 [employer] comple t ed influenza virus vaccine, live 08/27/09 Given Ambulat ory Pharmac y influenza virus vaccine, live, attenuated, for intranasal use 1 2008 [id number] 111 [employer] (MED) complet ed influenza virus vaccine, live, attenuate d, for intranasa l use DoD tetanus, diphtheria, acellular pertu is 2008 [id number] 115 sanofi pasteur complet ed tetanus, diphtheri a, acellular pertussis 04/18/09 Given Ambulat ory Pharmac y tetanus toxoid, reduced diphtheria toxoid, and acellular pertu is vaccine, adsorbed 1 2008 [id number] 115 Sanofi Pasteur (PMC) complet ed tetanus toxoid, reduced diphtheri a toxoid, and acellular pertussis vaccine, adsorbed DoD influenza virus vaccine,split 2007 [id number] 2AA 15 GlaxoSmithKli ne complet ed influenza virus vaccine,s plit 08/23/08 Given Ambulat ory Pharmac y influenza virus vaccine, split virus (incl. purified surface antigen)-reti red CODE 1 2007 [id number] 2AA 15 [employer] ([facility]) complet ed influenza virus vaccine, split virus (incl. purified surface antigen)- retired CODE DoD typhoid Vi capsular polysaccharid e vac 2007 [id number] 101 sanofi pasteur complet ed typhoid Vi capsular polysacch aride vac 07/13/08 Given Ambulat ory Pharmac y typhoid Vi capsular polysaccharid e vaccine 1 2007 [id number] 101 Sanofi Pasteur ([facility]) complet ed typhoid Vi capsular polysacch aride vaccine DoD influenza virus vaccine,split 2006 [id number] 3AA 15 GlaxoSmithKli ne complet ed influenza virus vaccine,s plit 09/03/07 Given Ambulat ory Pharmac y influenza virus vaccine, split virus (incl. purified surface antigen)-reti red CODE 1 2006 [id number] 3AA 15 [employer] ([facility]) complet ed influenza virus vaccine, split virus (incl. purified surface antigen)- retired CODE DoD influenza virus vaccine,split 2005 [id number] 15 Unknown complet ed influenza virus vaccine,s plit 09/10/06 Given Ambulat ory Pharmac y influenza virus vaccine, split virus (incl. purified surface antigen)-reti red CODE 1 2005 [id number] 15 Other (OTH) complet ed influenza virus vaccine, split virus (incl. purified surface antigen)- retired CODE [facility] typhoid vaccine, inactivated 2005 [id number] 101 sanofi pasteur complet ed typhoid vaccine, inactivat ed 03/11/06 Given Ambulat ory Pharmac y typhoid vaccine, parenteral, other than acetone-kille d, dried 1 2005 [id number] 41 Sanofi Pasteur ([facility]) complet ed typhoid vaccine, parentera l, other than acetone-k illed, dried DoD influenza virus vaccine,split 2004 [id number] 15 sanofi pasteur complet ed influenza virus vaccine,s plit 08/16/05 Given Ambulat ory Pharmac y influenza virus vaccine, split virus (incl. purified surface antigen)-reti red CODE 1 2004 [id number] 15 Sanofi Pasteur ([facility]) complet ed influenza virus vaccine, split virus (incl. purified surface antigen)- retired CODE DoD FLU,3 YRS (HISTORICAL) 2004 MARILIN RAMIRES 88 complet ed PROVIDE IAE [facility] influenza virus vaccine, live 2004 [id number] 111 [employer] comple t ed influenza virus vaccine, live 10/16/04 Given Ambulat ory Pharmac y influenza virus vaccine, live, attenuated, for intranasal use 0 2004 [id number] 111 [employer] (MED) complet ed influenza virus vaccine, live, attenuate d, for intranasa l use [facility] typhoid vaccine, inactivated 2003 [id number] 101 sanofi pasteur complet ed typhoid vaccine, inactivat ed 04/18/04 Given Ambulat ory Pharmac y typhoid vaccine, parenteral, other than acetone-kille d, dried 0 2003 [id number] 41 Sanofi Pasteur ([facility]) complet ed typhoid vaccine, parentera l, other than acetone-k illed, dried [facility] tuberculin purified protein derivative 2003 [id number] 96 sanofi pasteur complet ed tuberculi n purified protein derivativ e 11/15/03 Given Ambulat ory Pharmac y tuberculin purified protein derivative 2003 [id number] 96 sanofi pasteur complet ed tuberculi n purified protein derivativ e 11/15/03 Given Ambulat ory Pharmac y anthrax vaccine 2003 [id number] 24 [employer] complet ed anthrax vaccine 11/15/03 Given Ambulat ory Pharmac y anthrax vaccine 6 2003 [id number] 24 [employer] [place] ([facility]) complet ed anthrax vaccine DoD influenza virus vaccine, live 2003 [id number] 111 [employer] comple t ed influenza virus vaccine, live 11/01/03 Given Ambulat ory Pharmac y influenza virus vaccine, live, attenuated, for intranasal use 0 2003 [id number] 111 [employer] (MED) complet ed influenza virus vaccine, live, attenuate d, for intranasa l use [facility] influenza virus vaccine, whole virus 2002 [id number] 16 Novartis Pharmaceutica ls complet ed influenza virus vaccine, whole virus 08/05/03 Given Ambulat ory Pharmac y influenza virus vaccine, whole virus 0 2002 [id number] 16 [employer] (PWJ) complet ed influenza virus vaccine, whole virus DoD vaccinia (smallpox) vaccine [id number] [facility] complet ed vaccinia (smallpox ) vaccine 12/09/02 Given Ambulat ory Pharmac y anthrax vaccine 2002 [id number] 24 [employer] complet ed anthrax vaccine 12/09/02 Given Ambulat ory Pharmac y meningococcal polysaccharid e (MPSV4) 2002 [id number] 32 sanofi pasteur complet ed meningoco ccal polysacch aride (MPSV4) 12/09/02 Given Ambulat ory Pharmac y anthrax vaccine 5 2002 [id number] 24 [employer] [place] (M[facility]) complet ed anthrax vaccine DoD meningococcal polysaccharid e vaccine (MPSV4) 0 2002 [id number] 32 Sanofi Pasteur (PMC) complet ed meningoco ccal polysacch aride vaccine (MPSV4) DoD vaccinia (smallpox) vaccine 0 2002 [id number] 75 [facility] ([facility]) complet ed vaccinia (smallpox ) vaccine DoD PNEUMOCOCCAL POLYSACCHARID E PPV23 2001 33 complet ed [facility] yellow fever vaccine 2001 [id number] 37 sanofi pasteur complet ed yellow fever vaccine 09/14/02 Given Ambulat ory Pharmac y yellow fever vaccine 0 2001 [id number] 37 Sanofi Pasteur (PMC) complet ed yellow fever vaccine DoD tuberculin purified protein derivative 2001 [id number] 96 sanofi pasteur complet ed tuberculi n purified protein derivativ e 09/09/02 Given Ambulat ory Pharmac y tuberculin purified protein derivative 2001 [id number] 96 sanofi pasteur complet ed tuberculi n purified protein derivativ e 09/09/02 Given Ambulat ory Pharmac y influenza virus vaccine, whole virus 2001 [id number] 16 sanofi pasteur complet ed influenza virus vaccine, whole virus 09/09/02 Given Ambulat ory Pharmac y influenza virus vaccine, whole virus 0 2001 [id number] 16 Sanofi Pasteur ([facility]) complet ed influenza virus vaccine, whole virus DoD INFLUENZA (HISTORICAL) 2001 88 complet ed [employer] influenza virus vaccine, whole virus 2000 [id number] 16 sanofi pasteur complet ed influenza virus vaccine, whole virus 09/08/01 Given Ambulat ory Pharmac y influenza virus vaccine, whole virus 0 2000 [id number] 16 Sanofi Pasteur ([facility]) complet ed influenza virus vaccine, whole virus DoD tuberculin purified protein derivative 2000 [id number] 96 [facility] complet ed tuberculi n purified protein derivativ e 01/13/01 Given Ambulat ory Pharmac y tuberculin purified protein derivative 2000 [id number] 96 [facility] complet ed tuberculi n purified protein derivativ e 01/13/01 Given Ambulat ory Pharmac y influenza virus vaccine, whole virus 2000 16 Unknown complet ed influenza virus vaccine, whole virus 10/13/00 Given Ambulat ory Pharmac y INFLUENZA, UNSPECIFIED FORMULATION 2000 88 complet ed [facility] influenza virus vaccine, whole virus 0 2000 16 Unknown (UNK) comple t ed influenza virus vaccine, whole virus [facility] TD(ADULT) UNSPECIFIED FORMULATION 2000 139 complet ed [facility] tuberculin purified protein derivative 1999 [id number] 96 [facility] complet ed tuberculi n purified protein derivativ e 08/15/00 Given Ambulat ory Pharmac y tuberculin purified protein derivative 1999 [id number] 96 [facility] complet ed tuberculi n purified protein derivativ e 08/15/00 Given Ambulat ory Pharmac y anthrax vaccine 1999 [id number] 24 [employer] complet ed anthrax vaccine 10/29/99 Given Ambulat ory Pharmac y anthrax vaccine 4 1999 [id number] 24 [employer] [facility] ([facility]) complet ed anthrax vaccine DoD influenza virus vaccine, whole virus [id number] [id number] 16 [employer] complet ed influenza virus vaccine, whole virus 07/10/99 Given Ambulat ory Pharmac y influenza virus vaccine, whole virus 0 19980599 [id number] 16 [employer] (NATHALIE) complet ed influenza virus vaccine, whole virus DoD anthrax vaccine 1998 24 [employer] complet ed anthrax vaccine 04/16/99 Given Ambulat ory Pharmac y anthrax vaccine 3 1998 [facility] complet ed anthrax vaccine DoD anthrax vaccine 1998 [id number] 24 [employer] complet ed anthrax vaccine 04/02/99 Given Ambulat ory Pharmac y anthrax vaccine 2 1998 [id number] 24 [facility] complet ed anthrax vaccine DoD tuberculin purified protein derivative 1998 [id number] 96 [facility] complet ed tuberculi n purified protein derivativ e 03/17/99 Given Ambulat ory Pharmac y tuberculin purified protein derivative 1998 [id number] 96 [facility] tuberculi n purified protein derivativ e 03/17/99 Given Ambulat ory Pharmac y typhoid vaccine, live, oral 1998 25 complet ed typhoid vaccine, live, oral 03/16/99 Given Ambulat ory Pharmac y anthrax vaccine 1998 [id number] 24 [employer] complet ed anthrax vaccine [...] a toxoid) DoD anthrax vaccine 1 1998 [id number] 24 [facility] complet ed anthrax vaccine DoD typhoid vaccine, live, oral 0 1998 25 () complet ed typhoid vaccine, live, oral DoD measles/mumps /rubella virus vaccine 1997 [id number] 03 [employer] complet ed measles/m umps/rube lla virus vaccine 09/01/98 Given Ambulat ory Pharmac y measles, mumps and rubella virus vaccine 0 1997 [id number] 03 [employer] (AB) complet ed measles, mumps and rubella virus vaccine DoD influenza virus vaccine, whole virus 19976472 [id number] 16 [facility] complet ed influenza virus vaccine, whole virus 07/29/98 Given Ambulat ory Pharmac y influenza virus vaccine, whole virus 0 19970787 [id number] 16 [facility] (CON) complet ed influenza virus vaccine, whole virus DoD influenza virus vaccine, whole virus 19969117 [id number] 16 [employer] complet ed influenza virus vaccine, whole virus 08/16/97 Given Ambulat ory Pharmac y influenza virus vaccine, whole virus 0 19964751 [id number] 16 [employer] (Inactive) ([place]) complet ed influenza virus vaccine, whole virus DoD hepatitis A adult vaccine 1996 [id number] 52 GlaxoSmithKli ne complet ed hepatitis A adult vaccine 05/17/97 Given Ambulat ory Pharmac y hepatitis A vaccine, adult dosage 2 1996 [id number] 6 52 [employer]Kline (SKB) complet ed hepatitis A vaccine, adult dosage DoD meningococcal polysaccharid e (MPSV4) 19969666 [id number] 32 PFIZER complet ed meningoco ccal polysacch aride (MPSV4) 11/09/96 Given Ambulat ory Pharmac y hepatitis A adult vaccine 19960819 6531532 52 PFIZER complet ed hepatitis A adult vaccine 11/09/96 Given Ambulat ory Pharmac y meningococcal polysaccharid e vaccine (MPSV4) 0 19963542 [id number] 32 [employer]-Ayerst (Inactive) ([place]) complet ed meningoco ccal polysacch aride vaccine (MPSV4) DoD hepatitis A vaccine, adult dosage 1 19962972 [id number] 52 [employer] (Inactive) ([place]) complet ed hepatitis A vaccine, adult dosage DoD INFLUENZA (HISTORICAL) 1995 VALERIANO CHANEL 88 complet ed [place] [facility] typhoid, parenteral, AKD 1994 [id number] 6 53 [facility] complet ed typhoid, parentera l, AKD 09/10/95 Given Ambulat ory Pharmac y typhoid vaccine, parenteral, acetone-kille d, dried ([place]. ) 2 1994 [id number] 6 53 [facility] (SKB) complet ed typhoid vaccine, parentera l, acetone-k illed, dried ([place] ) DoD immune globulin, unspecified formulation 0 1994 14 () complet ed immune globulin, unspecifi ed formulati on DoD hepatitis B adult vaccine 19929261 [id number] 43 PFIZER complet ed hepatitis B adult vaccine 12/13/92 Given Ambulat ory Pharmac y hepatitis B vaccine, adult dosage 3 19922078 [id number] 43 [employer] (Inactive) ([place]) complet ed hepatitis B vaccine, adult dosage DoD cholera vaccine unspecified formula 19912079 7189804 26 P[employer]ZER complet ed cholera vaccine unspecifi ed formula 01/11/92 Given Ambulat ory Pharmac y cholera vaccine, unspecified formulation 0 19918229 [id number] 26 [employer]Ayer[employer] (Inactive) ([place]) complet ed cholera vaccine, unspecifi ed formulati on DoD yellow fever vaccine 19906427 1983501 37 PFIZER complet ed yellow fever vaccine 09/15/91 Given Ambulat ory Pharmac y yellow fever vaccine 0 19902520 [id number] 37 [employer]-Ayerst (Inactive) ([place]) complet ed yellow fever vaccine DoD poliovirus [...] ADM Date DC Date Status Disposition Source [address] [place] [address]([facility] Team A) OUTPATIENT [id number] [facility] d[facility] cancer BETO MARES 01/15 Released w/o Limitations [address] [place] [address]([facility] Team A) [address] [place] [address]([facility] Team A) TELE CONSULT [id number] Notes Entered by: PERRY GONZALEZ 19 Jan 2012 0743 ------- ------- ------- ------- -- GIL HARRINGTON 01/[address] [place] [address]([facility] Team A) [address] [place] [address]([facility] [facility] TELE CONSULT [id number] Notes Entered by: BONITA KIM 07 Mar 2012 0803 ------- ------- ------- ------- -- BONITA Bey 03/[address] [place] [address]([facility] Team A) [address] [place] [address]([facility] Team A) TELE CONSULT [id number] Notes Entered by: BONITA KIM 09 Jul 2012 1254 ------- ------- ------- ------- -- Renew - BETO Merchant 07/[address] [place] [address]([facility] Team A) [address] [place] [address]([facility] Team B) TELE CONSULT [id number] Notes Entered by: PERRY GONZALEZ 02 Jan 2013 1116 ------- ------- ------- ------- -- MICARE: BONITA Finch 01/02 [facility] Team B) [address] [place] [address]([facility] Team B) TELE CONSULT [id number] Notes Entered by: PERRY GONZALEZ 18 Jan 2013 1524 ------- ------- ------- ------- -- MICARE: Sheron KIM BONITA 01/[address] [place] [address]([facility] Team B) [address] [place] [address](Ref erral [facility]) TELE CONSULT [id number] Notes Entered by: BONITA KIM 2013 0756 ------- ------- ------- ------- -- MICARE request for sheron KIM BONITA 12/03 [facility](R eferral Managem [facility] [place]) [address] [place] [address](Ref erral [facility] [place]) TELE CONSULT [id number] Notes Entered by: BONITA KIM 25 Apr 2014 1348 ------- ------- ------- ------- -- LOD renewal JULIO BONITA 04/[address] [place] [address]([facility] ef[facility] [place]) [address] [place] [address]([facility] Team A) OUTPATIENT [id number] LOD follow up history of bladder cancer OG RIVAS 04/28 Released w/o Limitations [address] [place] [address]([facility] Team A) [address] [place] [address]([facility] Team A) TELE CONSULT [id number] Notes Entered by: Sg FATIMA 30 Apr 2014 0959 ------- ------- ------- ------- -- Network Results -Urolog y- LE, NORMA T 04/30 [facility] Team A) [facility] Team B) OUTPATIENT [id number] LOD F/U OG RIVAS 03/04 Released w/o Limitations [facility] Team B) [facility] Team A) TELE CONSULT [id number] ELANKrys BONITA 05/21 [facility] Team A) [facility] Team A) OUTPATIENT [id number] LOD - F/u referra l to urology LE, RAFAELMILANO T 03/23 Released w/o Limitations [facility] Team A) [facility] Team A) TELE CONSULT [id number] Notes Entered by: WASHINGTON MOORE 20 May 2016 1532 ------- ------- ------- ------- -- WASHINGTON Segovia 05/20 [facility] Team A) [address] [place] [address]([facility] Team A) TELE CONSULT [id number] Notes Entered by: Daisha LIN 07 Oct 2016 1206 ------- ------- ------- ------- -- LOD Network Results Urology Jun 24 LE, RAFAELJOSE T 10/07 [facility] Team A) [facility] Team A) OUTPATIENT [id number] LOD - Urology LE, RAFAELMILANO T 03/23 Released w/o Limitations [facility] Team A) [facility] Team A) OUTPATIENT [id number] f/u LOD-WIL Lewis 06/19 Released w/o Limitations [facility] Team A) [facility] Team A) TELE CONSULT [id number] Notes Entered by: ME JANNY TOPETE 11 Feb 2019 1352 ------- ------- ------- ------- -- Network Results Urology [id number] WIL ARNETT VERO 02/11 [facility] Team A) [facility] Team A) TELE CONSULT [id number] Notes Entered by: GOOD MCBRIDE 30 Jul 2019 1558 ------- ------- ------- ------- -- Sheron Barger - KERWIN Maynard 07/30 Immediate Referral [facility] Team A) [facility] Team A) TELE CONSULT [id number] Notes Entered by: SENIA RODRIGUEZ 24 Jan 2020 1010 ------- ------- ------- ------- -- Network Results Uro [id number] WIL ARNETT VERO 01/23 [facility] Team A) [facility] Team A) TELE CONSULT [id number] Notes Entered by: GOOD MCBRIDE 30 Jun 2020 1027 ------- ------- ------- ------- -- Backdat ed MARY Turner 06/30 Other Not Elsewhere Classified [facility] Team A) Procedures Combined list of: 1) [...] Phone Call To Patient/Provide r Brief (5-10min) [id number] MARY SALGADO [facility] TELE ASSESS & MGT SRV PROV QUAL [...] Tobacco smoking status NHIS LIFETIME NON-SMOKER 03/01/2022 [facility] History of tobacco use LIFETIME NON-SMOKER 04/22/2005 [facility] This section is an empty social [...] Plan No data available for this section 05/05/2025 Ambulatory Pharmacy Functional Status Combined list of recent functional and cognitive assessments recorded at [facility] [place] Functional [place] Measurement (FIM) Scale: 1 = Total Assistance (Subject = 0% +), 2 = Maximal Assistance (Subject = 25% +), 3 = Moderate Assistance (Subject = 50% +), 4 = Minimal Assistance (Subject = 75% +), 5 = Supervision, 6 = Modified [place] (Device), 7 = Complete [place] (Timely, Safely). Assessment Date/Time Source Assessment Type Assessment Skill Assessment Score Assessment Details No data available for this section
--- OUTSIDE RECORDS SUMMARY | 2025-05-05 12:13 | XMS_ITS ---
Author Name CRIS Organization Unknown History of Medication Use Medication Directions Dispensed Refills Start Date End Date Stat us gabapentin (capsule) 100 mg com pleted mirtazapine completed Allergies Allergen Reaction Severity Comment Documented Date Source Statu s IBUPROFEN CT_SOLINSKY Problems Problem Status Onset Date Problem Type Date of Resoluti on Source Acute sinusitis, unspecified active EncounterDiagnosisAct CTMDSX H Encounters Encounter Type Encounter Reason Primary Diagnosis Location Date Ambulatory [facility] 03/11/2024 Ambulatory Pain in left ankle and joints of left foot Pain in left ankle and joints of left foot [facility] 01/01/2024 Ambulatory Acute sinusitis, unspecified Acute sinusitis, unspecified [facility] 01/01/2024 Care Team Organization Name Specialty Phone Email Start Date End Da te [facility] 01/09/2024 [facility] 01/09/2024 [facility] 01/01/2024 [facility] 01/01/2024
--- OUTSIDE RECORDS SUMMARY | 2025-05-05 12:13 | XMS_ITS | Clinical Summary ---
Author Organization [facility] ity Address [address] [place] [address] Care Team Providers Care Glaciologist Name Role Phone Unavailable Primary Care Provider [...] Vaccine (1 - 2023-2 5 season) 2024 Depression Screening 10/09/2024 Influenza Vaccine (#1) 2025 RSV Immunization Adult Patie nts (1 [...]
--- OUTSIDE RECORDS SUMMARY | 2025-05-05 12:13 | XMS_ITS | Encounter Summary ---
Author Organization [facility] Address [address] [place] [address] Care Team Providers Care Technical Professional Name Role Phone Pcp, No Primary Care Provider Unavailabl e Reason for Referral * Imaging (Routine) - Closed Specialty Diagnoses / Procedures Referred By Contac t Referred To Contact Radiology Diagnoses Acute sinusitis, unspecified Procedures XR PARANASAL SINUSES 1-2 VIEWS Mary Carrero PA-C [address] [place] [phone] Phone: tel: fax: [facility] Radiology - Central Scheduling [place] Phone: tel: fax: Referral ID Status Reason Start Date Expiration Date V isits Requested Visits Authorized [id number] Closed Perform Procedure 01/01/2024 12/31/2024 1 1 Encounter Details Date Type Department Care Team (Late st Contact Info) Description 01/01/2024 Ancillary Orders [facility] Radiology, Outpatient Center (Diag Rad) [address] [place], [place] [address] Mary Carrero PA-C [address] [place] [phone] Acute sinusitis, unspecified (Primary Dx) Social [...] well. Narrative 01/01/2024 9:36 PM EDT PROCEDURE: XR PARANASAL SINUSES 1-2 VIEWS CLINICAL INDICATION: Acute sinusitis, unspecified, acute sinusitis///PT states chronic sinusitis [...] unspecified documented in this encounter Care Teams Technical Professional Relationship Specialty Start Date End Date Pcp, No [place] [address] PCP - General 01/01/24 documented as of this encounter
--- OUTSIDE RECORDS SUMMARY | 2025-05-05 12:13 | XMS_ITS | Patient Health Record ---
Author Organization [facility] Address [address] [place] [address] Care Team Providers Care Director Business Management Name Role Phone [facility], [facility] Primary Care Provider Chato Carter Jr Allergies Allergen (clinical drug ingredient) Drug/Non Drug Allergy documented on EMR Reaction Allergy Type Onset Date Status ibuprofen Ibuprofen Unknown Drug Allergy Active Reason For Referral No Information Medications Medication SIG (Take, Route, Frequency, Duration) Notes Start Date End Date Status Promethazine-Codeine 6.25-10 MG/5ML TAKE 1 OR 2 TEASPOONFULS AT HS Oral for 6 Active Azithromycin 250 MG TK 2 TS PO AT ONCE T LESLI THEN TK 1 T PO ONCE D FOR 4 DAYS Oral for 5 Active Mirtazapine 30 MG TK 1 T PO QPM BEFORE BEDTIME Oral for 30 Active Suprep Bowel Prep 1 as directed Orally 1 for 1 dose 12/17/2014 Active Problems Problem Type SNOMED Code ICD Code Onset Dates Problem Status W/U Status Risk Notes Problem [id number] Colon cancer screening (V76.51) Active confirmed Plan Of Treatment Future Test Test Name Order Date COLONOSCOPY 12/17/2014 Insurance Providers Payer Name Payer Address Payer Phone Subscriber Number Group Number Insured Name Patient Relationship to Insured Coverage Start Date Coverage End Date [facility] [address] [place], [place] [id number] [phone] [id number] BRENDA ALMENDAREZ Self - patient is the insured Medical (General) History Medical History History ICD Code bladder cancer hepatitis A (back in 1988) Denies [place],DM,CVA,Lung disease,renal dise ase Surgical History Surgery Date(Month/Year) appendectomy bladder tumor removed repair of rectal fistula
== END 2025-05-05 11:17 | disposition home or self-care (01) ==
LOC: HO.HSM 10:55
PROVIDERS: PCP Internal Medicine; Visit Provider Registered Nurse
DX: G62.9 Polyneuropathy, unspecified (principal)
CPT/HCPCS: 99214

== ENCOUNTER → 2025-05-05 10:55 | Outpatient (BNVA) | payer OTHER, SELFPAY | PROVIDERS: PCP Internal Medicine; Visit Provider Registered Nurse | DX: G62.9 Polyneuropathy, unspecified (principal); Z79.899 Other long term (current) drug therapy | CPT/HCPCS: 99212 ==

== ENCOUNTER 2025-07-25 09:33 | Outpatient (AMB) | payer OTHER, SELFPAY ==
--- NOTE | 2025-07-25 09:53 | AM.OFFWIN_ITS ---
Intake Vital Signs 07/25/25 10:01 Height 5 ft 11 in Weight 186 lb BMI 25.9 BP 116/66 Blood Pressure Location Lt brachial Position Sitting Pulse 64 Pulse Source Pulse Oximeter Temp 98.3 F Temp Source Oral Pulse Oximetry (%) 98 Oxygen Delivery Method Room Air Intake Visit Reasons: EP-lt earache/sinus issue-[phone] Intake Note: pt presents with LT ear pain, sinus congestion with pink drainage, dizziness Patient Tobacco Use Status: Never used Tobacco Allergies oxybutynin Allergy (Intermediate, Verified 07/25/25 09:53) nausea, headaches, blurry vision ibuprofen (From Motrin) Allergy (Unknown, Verified 07/25/25 09:53) NAUSEA & VOMITING, GI upset Do you need a note to return to daycare/school/sports/work: No HPI HPI Comments History of Present Illness Details History - The patient is a 59-year-old male pres enting with hearing loss, dizziness, and sinus pain. - The patient reports a two-day history of decreased hearing on the left side, accompanied by a sensation of blockage. - He used saline spray, which resulted i n pink-tinged fluid, indicating possible nasal passage irritation. - The patient experienced dizziness upon standing, particularly after showering, and noted sinus pain above the left eye. - He applied a warm compress to the area , which provided some relief. - The patient denies any history of ear infections but reports occasional ear blockage during flights, usually relieved by saline spray. - He denies cough, shortness of breath, wheezing, or fever, but reports significant nasal congestion upon waking. - The patient uses a CPAP machine but wa s unable to use it due to breathing difficulties. Review of Systems - Ears: Reports decreased hearing on the left side, denies history of ear infections. - Neurological: Reports dizziness upon s tanding, denies headaches or balance issues. - Respiratory: Denies cough, shortness o f breath, wheezing, or fever. - Nasal: Reports significant congestion upon waking, pink-tinged fluid after saline spray use. All systems reviewed and are unremarkable except as noted in HPI Physical Exam General: Cooperative, healthy appearing, comfortable and no acute distress Orientation/consciousness: Patient oriented x3 Limitations: No limitations Head: Normal to inspection Ears: Hearing reduced on the left side, fluid and redness in the left ear canal, redness on the left tympanic membrane Nose: Normal external nose present, Normal nares present, nasal discharge present Face and sinus: Normal facial exam, Sinus tenderness left frontal Mouth: Normal oral and palatal mucosa present and moist mucous membranes Throat: Tonsils normal, Uvula midline, Posterior oropharynx erythema, no ex udates Eyes: Appearance normal, both eyes and all related structures Neck: Normal visual inspection, full ROM Respiratory: Clear to auscultation bilaterally. Normal respiratory effort, able to speak in complete sentences, no cough, no respiratory distress, not tachypneic, no tripod positioning and no use of accessory muscles Cardiovascular: Regular rate and rhythm. 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 Maternal Grandmother No problems noted. Paternal Grandfather No problems noted. Paternal Grandmother No problems noted. Brother No problems noted. 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[employer], rt hand Cognitive needs: No Hearing needs: No Vision needs: Yes Physical Exam Vital Signs: Last Vital Signs Temp 98.3 F 07/25/25 10:01 Pulse 64 07/25/25 10:01 BP 116/66 07/25/25 10:01 Pulse Ox 98 07/25/25 10:01 Oxygen Delivery Method Room Air 07/25/25 10:01 BMI result Body Mass Index 25.9 Assessment & Plan Assessment & Plan (1) Acute viral sinusitis: Code(s): J01.90 - Acute sinusitis, unspecified; B97.89 - Other viral agents as the cause of diseases classified elsewhere Plan: Plan Patient was informed and verbally consented to the use of an ambient scribe for clinic note documentation during this visit. - VSS, pt well appearing and PE remarkable for frontal sinus tenderness and scant purulent fluid in ears. - Recommend using Afrin nasal spray for three days to reduce congestion and unblock the ears. - Transition to Astepro (azelastine) after Afrin to maintain nasal passage clearance. - Use saline spray between Afrin doses to prevent nasal irritation and bleeding. - Monitor symptoms and use supportive care measures such as saline spray and warm compresses. Possible Ear Infection - If symptoms do not improve after two days of Afrin use, initiate antibiotic therapy with amoxicillin but likely will drain. - DO NOT USE AFRIN for more than 3 days or you will have rebound congestion that will be difficult to stop or control. - Advise the patient to take antibiotics with food to minimize gastrointestinal discomfort. Medications: New amoxicillin 875 mg PO Q12H 14 tabs 0RF Coding Level of Care Code Est Pt Level 3 (72738) Diagnoses Acute viral sinusitis J01.90; B97.89
[2025-07-25 10:01] VITALS: BP 116/66; PULSE 64; TEMP 36.8; O2SAT 98; BMI 25.9
--- OUTSIDE RECORDS SUMMARY | 2025-07-25 10:45 | XMS_ITS | Clinical Summary ---
Author Organization [facility] ity Address [address] [place] [address] Care Team Providers Care J2Ee Android Developer Name Role Phone Unavailable Primary Care Provider Unavailabl e Social History Tobacco Use Types Packs/Day Years Used Date Smoking Tobacco: Never Assessed Sex and Gender Information Value Date Recorded Sex Assigned at Not on file Legal Sex Male 9:10 AM EST Gender Identity Not on file Sexual Orientation Not on file Plan of Treatment Health Maintenance Due Date Last Done Comments IPV Vaccines (2 of 3 - Adult catch-up series) 07/22/1988 06/24/1988 Hepatitis B Vaccines (2 of 3 - 19+ 3-dose series) 01/10/1993 12/13/1992 Pneumococcal Vaccine: 50+ Years (2 of 2 - PCV) 2013 09/23/2002 Zoster Vaccines (2 of 2) 08/11/2018 018, 01/12/2018, 01/12/2018 Depression Screening 10/09/2024 COVID-19 Vaccine ( - season) 2025 06/19/2022, 10/21/2021, 12/04/2020, Additional history exists Influenza Vaccine (#1) 2025 3, 07/11/2022, 05/23/2022, Additional history exists DTaP,Tdap,and Td Vaccines (6 - Td or Tdap) 05/12/2029 05/12/2019, 04/18/2009, 10/09/2000, Additional history exists RSV Immunization Adult Patients (1 - 1-dose 75+ series) 2038 Hepatitis A Vaccines Aged Out 05/17/1997, 11/09/18 97 No longer eligible based on patient's age to complete this topic MMR Vaccines Aged Out 09/01/1998, 01/22/1987 No lo nger eligible based on patient's age to complete this topic Meningococcal ACWY Vaccine Aged Out 12/09/2002, No longer eligible based on patient's age to complete this topic HIB Vaccines Aged Out No longer eligi ble based on patient's age to complete this topic HPV Vaccines Aged Out No longer eligi ble based on patient's age to complete this topic Meningococcal B Vaccine Aged Out No l onger eligible based on patient's age to complete this topic RSV Immunization Patients Under 20 months Aged Out No longer eligible based on patient's age to complete this topic Varicella Vaccines Aged Out No longer eligible based on patient's age to complete this topic
--- OUTSIDE RECORDS SUMMARY | 2025-07-25 10:45 | XMS_ITS | Clinical Summary ---
Author Organization [facility] Address [address] [place] [address] Care Team Providers Care Nursing Coordinator Name Role Phone Pcp, No Primary Care [...] Vaccines (1 of 2) 2013 COVID-19 Vaccine (2024-2 6 season) 2025 Influenza Vaccine (#1) 2025 RSV 60+ (1 - 1-dose 75+ series) 2038 HIB Vaccines Aged Out No longer eligi ble based on patient's age to complete this topic HPV Vaccines (No Doses Required) Completed Hepatitis A Vaccines Aged Out No long [...] this topic Insurance [employer] Care Teams Nursing Coordinator Relationship Specialty Start Date End Date Pcp, No [place] [address] PCP - General 01/01/24
--- OUTSIDE RECORDS SUMMARY | 2025-07-25 10:45 | XMS_ITS | Encounter Summary ---
Author Organization [facility] Address [address] [place] [address] Care Team Providers Care Lead Assembler Name Role Phone Pcp, No Primary Care Provider Unavailabl e Reason for Referral * Imaging (Routine) - Closed Specialty Diagnoses / Procedures Referred By Contac t Referred To Contact Radiology Diagnoses Acute sinusitis, unspecified Procedures XR PARANASAL SINUSES 1-2 VIEWS Mary Carrero PA-C [address] [place] [phone] Phone: tel: fax: [facility] Radiology - Central Scheduling [place] Phone: tel: fax: Referral ID Status Reason Start Date Expiration Date V isits Requested Visits Authorized [id number] Closed Perform Procedure 01/01/2024 12/31/2024 1 1 Encounter Details Date Type Department Care Team (Late st Contact Info) Description 01/01/2024 Ancillary Orders [facility] Radiology, Outpatient Center (Diag Rad) [address], [address] [place], [place] [address] Mary Carrero PA-C [address] [place] [phone] Acute sinusitis, unspecified (Primary Dx) Social [...] unspecified documented in this encounter Care Teams Lead Assembler Relationship Specialty Start Date End Date Pcp, No [place] [address] PCP - General 01/01/24 documented as of this encounter
--- OUTSIDE RECORDS SUMMARY | 2025-07-25 10:46 | XMS_ITS | Encounter Summary ---
Author Organization [facility] Address [address] [place] [address] Care Team Providers Care Cop Examiner Name Role Phone Pcp, No Primary Care Provider Unavailabl e Reason for Referral * Imaging (Routine) - Closed Specialty Diagnoses / Procedures Referred By Contac t Referred To Contact Radiology Diagnoses Pain in left ankle and joints of left foot Procedures XR ANKLE 2 VIEWS LEFT Mary Carrero PA-C [address] [place] [phone] Phone: tel: fax: [facility] Radiology - Central Scheduling [place] Phone: tel: fax: Referral ID Status Reason Start Date Expiration Date V isits Requested Visits Authorized [id number] Closed Perform Procedure 01/01/2024 12/31/2024 1 1 Encounter Details Date Type Department Care Team ([facility] st Contact Info) Description 01/01/2024 Ancillary Orders [facility] Radiology, Outpatient Center (Diag Rad) [address] [place], [place] [address] Mary Carrero PA-C [address] [place] [phone] Pain in left ankle and joints [...] helpful. Narrative 01/01/2024 5:02 PM EDT PROCEDURE: XR ANKLE 2 VIEWS LEFT CLINICAL [...] foot documented in this encounter Care Teams Cop Examiner Relationship Specialty Start Date End Date Pcp, No [place] [address] PCP - General 3/25/24 documented as of this encounter
--- OUTSIDE RECORDS SUMMARY | 2025-07-25 10:46 | XMS_ITS | Patient Health Record ---
Author Organization [facility] Address [address] [place] [address] Care Team Providers Care Plant Engineer Name Role Phone Guilherme BASS, [facility] Primary Care Provider Chato Carter Jr [phone] Allergies Allergen (clinical drug ingredient) Drug/Non Drug Allergy documented on EMR Reaction Allergy Type Onset Date Status ibuprofen Ibuprofen Unknown Drug Allergy Active Reason For Referral No Information Medications Medication SIG (Take, Route, Frequency, Duration) Notes Start Date End Date Status Promethazine-Codeine 6.25-10 MG/5ML TAKE 1 OR 2 TEASPOONFULS AT HS Oral; Duration: 6 Active Azithromycin 250 MG TK 2 TS PO AT ONCE T LESLI THEN TK 1 T PO ONCE D FOR 4 DAYS Oral; Duration: 5 Active Mirtazapine 30 MG TK 1 T PO QPM BEFORE BEDTIME Oral; Duration: 30 Activ e Suprep Bowel Prep 1 as directed Orally 1 ; Duration: 1 dose 12/17/2014 Active Problems Problem Type SNOMED Code ICD Code Onset Dates Problem Status W/U Status Risk Notes Problem Colon cancer screening (115494256) Colon cancer screening (V76.51) Active confirmed Plan Of Treatment Future Test Test Name Order Date COLONOSCOPY 12/17/2014 Insurance Providers Payer Name Payer Address Payer Phone Subscriber Number Group Number Insured Name Patient Relationship to Insured Coverage Start Date Coverage End Date [facility] [address] [place], [place] [id number] BRENDA ALMENDAREZ Self - patient is the insured Medical (General) History Medical History History ICD Code bladder cancer hepatitis A (back in 1988) Denies SC,DM,CVA,Lung disease,renal dise ase Surgical History Surgery Date(Month/Year) appendectomy bladder tumor removed repair of rectal fistula
== END 2025-07-25 10:34 | disposition home or self-care (01) ==
PROVIDERS: PCP Internal Medicine; Visit Provider Physician Assistant
DX: J01.90 Acute sinusitis, unspecified (principal); B97.89 Other viral agents as the cause of diseases classified elsewhere

== ENCOUNTER → 2025-07-25 09:33 | Outpatient (BNVA) | payer OTHER, SELFPAY | PROVIDERS: PCP Internal Medicine; Visit Provider Physician Assistant | DX: R42 Dizziness and giddiness (principal); J34.89 Other specified disorders of nose and nasal sinuses; J01.90 Acute sinusitis, unspecified; H91.92 Unspecified hearing loss, left ear; B97.89 Other viral agents as the cause of diseases classified elsewhere; Z99.89 Dependence on other enabling machines and devices | CPT/HCPCS: 99212 ==

== ENCOUNTER 2025-08-07 10:54 | Outpatient (AMB) | payer OTHER, SELFPAY ==
[2025-08-07 11:06] VITALS: BP 118/80; PULSE 58; O2SAT 96; BMI 27.2
--- NOTE | 2025-08-07 11:06 | A.OFFVIS_ITS ---
Vital Signs 08/07/25 11:06 Height 5 ft 11 in Weight 195 lb 4 oz BMI 27.2 BP 118/80 Blood Pressure Location Rt brachial Position Sitting Pulse 58 Pulse Source Pulse Oximeter Pulse Oximetry (%) 96 Oxygen Delivery Method Room Air Intake Visit Reasons: 6 mnts f/u Intake Note: Patient presents follow up JO-ANN. Compliance in chart(73/90days, >=4hrs-73%, Average Usage-4hr 57min, Med Pressure-7.2, Med Leaks-26.3, AHI-2.8). Accompanied by: Self / Same As Patient Allergies oxybutynin Allergy (Intermediate, Verified 08/07/25 11:14) nausea, headaches, blurry vision ibuprofen (From Motrin) Allergy (Unknown, Verified 08/07/25 11:14) NAUSEA & VOMITING, GI upset HPI Comments Details: 59 year old male, h/o of bladder cancer in remission is here for f/u of Home Sleep Study. Sep 2024 HST c/w mild jo-ann JOCELYN is 13.5, OAI is 9.6 and oxygen desaturation to 7 6%, with associated nocturnal hypoxemia and an average O2 SAT below 88% for 17min. 07/2025 Diverticulitis antibiotics and fluids were given at [facility] he was held over night pain improved and discharged home. JO-ANN Compliance Report April 2025- Jul 2025 reviewed with pt. Total use is 73/90 days and >4 hours is 73%, daily avg use is 4 hours and 57min. Med press 7.2cmH20 and Leaks 26.3cmH20 AHI is 2.8/hr. He washes his mask, rinses hoses, changes filters and fills reservoir with water. He notices he is having more leaks than usual with his mask, up to a maximum of [id number] and this interferese with his sleep. Since starting his CPAP use he is no longer snoring and his headaches have now improved.He feels more energetic daily and does not take naps.He goes to bed at 10:30pm takes Mirtazapine 7.5mg PO, as this helps with mood and sleep. He goes to the bathroom 3-4 times a night and has urge incontinence, he will look into Urology referral with [facility] due to insurance. He was treated for bladder cancer in 2009 and continues to have urge incontinence despite bladder training, timed toileting, medications and pelvic floor training. He served in the [employer] for 37 years and has vivid dreams, abnormal sleep patterns. Denies A/V hallucinations. Denies Parasomnias. He used to fall asleep anywhere. Denies RLS, or neuropathy. He exercises daily, his mood and diet are good. 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 Maternal Grandmother No problems noted. Paternal Grandfather No problems noted. Paternal Grandmother No problems noted. Brother No problems noted. 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[employer], rt hand Cognitive needs: No Hearing needs: No Vision needs: Yes Physical Exam Vital Signs: Last Vital Signs Pulse 58 08/07/25 11:06 BP 118/80 08/07/25 11:06 Pulse Ox 96 08/07/25 11:06 Oxygen Delivery Method Room Air 08/07/25 11:06 BMI result Body Mass Index 27.2 Const General: cooperative, healthy appearing and no acute distress Nutritional Appearance: average body habitus Orientation/consciousness: patient oriented x3 HEENT Face and sinus: Yes face symmetric Eyes Pupils: Equal, round and reactive pupils present Neck Neck: Yes full ROM Resp Effort & Inspection: normal respiratory effort and able to speak in complete sentences Neuro General: patient oriented x3 and moves all extremities Cranial nerves: Yes Facial sensation intact/muscles of mastication intact, Yes Equal, round and reactive pupils present, Yes Normal accommodation reflex present, Yes Normal facial strength present, Yes Midline tongue present, Yes Ability to bilaterally rotate head present and Yes Ability to bilaterally elevate shoulders present Gait exam (Neuro): Normal gait present Motor exam (neuro): 5/5 motor strength present throughout and Normal motor muscle tone present throughout Psych Appearance: grossly normal Speech and movement: Normal speech and movement present Thought process: Normal thought process present Thought content: Normal thought content present Results Reviewed Results Reviewed: ED note Diverticulitis. Labs reviewed with pt. JO-ANN Compliance Report April 2025- Jul 2025 reviewed with pt. Total use is 73/90 days and >4 hours is 73%, daily avg use is 4 hours and 57min. Med press 7.2cmH20 and Leaks 26.3cmH20 AHI is 2.8/hr. Assessment & Plan Assessment & Plan (1) JO-ANN (obstructive sleep apnea): Comment: Started on CPAP 10/2024 Code(s): G47.33 - Obstructive sleep apnea (adult) (pediatric) Category: Medical (2) Nocturia more than twice per night: Code(s): R35.1 - Nocturia Category: Medical Plan JO-ANN on CPAP is compliant and has refreshed sleep with use of his cpap use. Leaks have increased and will evaluate for with chin straps and Mask fitting. Labs reviewed with pt. Nocturia due to bladder cancer in remission. He continues pelvis floor exercises and f/u for urgency and incontinence with urology. f/u in 6months Patient Instructions: Sleep Hygiene provided: set a scheduled bedtime and wake time to help regulate the circadian rhythm and balance the release of pituitary hormones. Sleep in a dark room, temperatures below 68 degrees, and no devices n bed. Limit caffeinated products 6 hours prior to bed, and limit fluids 2-4 hours prior to bed. Gentle night yoga, diffusing essential oils, and playing soft music can be relaxing. Coding Level of Care Code Est Pt Level 4 (74929) Diagnoses JO-ANN (obstructive sleep apnea) G47.33 Nocturia more than twice per night R35.1
--- OUTSIDE RECORDS SUMMARY | 2025-08-07 13:37 | XMS_ITS | Clinical Summary ---
Author Organization [facility] Address [address] [place] [address] Phone Care Team Providers Care Spooling Operator Name Role Phone Nayeli Feliz MD Primary Care Provider [phone] Allergies Active Allergy Reactions Criticality Noted Date Comments Ibuprofen GI intolerance Medium 07/28/2025 Medications amoxicillin-cla vulanate (AUGMENTIN) 875-125 mg per tablet Take 1 tablet by mouth every 12 (twelve) hours for 7 days. 14 tablet 5 08/05/20 25 ondansetron (ZOFRAN) 4 mg tablet Take 1 tablet (4 mg total) by mouth every 8 (eight) hours if needed for nausea or vomiting for up to 7 days. 20 tablet 5 08/05/20 25 oxyCODONE (OXY-IR) 5 mg immediate release capsule Take 1 capsule (5 mg total) by mouth every 6 (six) hours if needed for severe pain for up to 3 days. Max Daily Amount: 20 mg 12 capsule 5 08/01/20 25 Encounters Date Type Department Care Team Description 07/28/2025 8:21 PM EDT - 07/29/2025 3:07 AM EDT Emergency [facility] Emergency [address] [place] [address] Angelica Rushing MD Landry, Jonathan P, MD Acute diverticulitis (Primary Dx) Discharge Disposition: Home or Self Care from Last 3 Months Medical History Medical History Date Comments Hypertension Social History Tobacco Use Types Packs/Day Years Used Date Smoking Tobacco: Never Tobacco Cessation:Counseling Given: Not Answered Sex and Gender Information Value Date Recorded Sex Assigned at Not on file Legal Sex Male 9:10 AM EST Gender Identity Not on file Sexual Orientation Not on file Travel History Travel Start Travel End [place] 07/11/2025 07/13/2025 Obstetrics History Last Filed Vital Signs Vital Sign Reading Time Taken Comments Blood Pressure 132/82 07/29/2025 12:30 AM EDT Pulse 69 07/29/2025 12:20 AM EDT Temperature 37.2 C (99 F) 07/28/2025 8:15 PM EDT Respiratory Rate 16 07/29/2025 12:20 AM EDT Oxygen Saturation 99% 07/29/2025 12:30 AM EDT Inhaled Oxygen Concentration - - Weight 84.8 kg (187 lb) 07/28/2025 8:13 PM EDT Height 180.3 cm (5' 11 ) 07/28/2025 8:13 PM EDT Body Mass Index 26.08 07/28/2025 8:13 PM EDT Plan of Treatment Health Maintenance Due Date Last Done Comments Colorectal Cancer Screening: Colonoscopy 1965 Zoster Vaccines (2 of 2) 08/11/2018 018, 01/12/2018, 01/12/2018 Depression Screening 10/09/2024 Cholesterol Screening (Lipid Panel) 07/28/2025 HIV Screening 07/28/2025 Hepatitis C Screening 07/28/2025 Social Influencers of Health Screening 07/28/2025 IPV Vaccines (3 of 3 - Adult catch-up series) 01/17/2026 07/19/2025, 06/24/1988 DTaP,Tdap,and Td Vaccines (7 - Td or Tdap) 01/22/2035 01/22/2025, 05/12/2019, 04/18/2009, Additional history exists RSV Immunization Adult Patients (1 - 1-dose 75+ series) 2038 Meningococcal ACWY Vaccine Aged Out 12/09/2002, No longer eligible based on patient's age to complete this topic COVID-19 Vaccine Completed 07/03/2024, , 07/24/2023, Additional history exists Hepatitis A Vaccines Completed 08/22/2024, 03/07/2024, 02/06/2024, Additional history exists Hepatitis B Vaccines Completed 08/22/2024, 03/07/2024, 02/06/2024, Additional history exists Pneumococcal Vaccine: 50+ Years Completed 10/25/2024, 09/23/2002 MMR Vaccines Aged Out 03/24/2025, 08/10, 01/22/1987 No longer eligible based on patient's age to complete this topic Influenza Vaccine Completed 07/08/2025, , 05/19/2023, Additional history exists HIB Vaccines Aged Out No longer eligi [...] on patient's age to complete this topic Procedures Procedure Name Priority Date/Time Associated Diagnosis Comments CT ABDOMEN PELVIS W CONTRAST STAT 07/29/2025 1:48 AM EDT CBC WITH AUTO DIFFERENTIAL STAT 07/28/2025 8:37 PM EDT LIPASE STAT 07/28/2025 8:37 PM EDT COMPREHENSIVE METABOLIC PANEL STAT 07/28/2025 8:37 PM EDT CBC AND DIFFERENTIAL STAT 07/28/2025 8:37 PM EDT from Last 3 Months Results * CT Abdomen Pelvis w Contrast (07/29/2025 1:48 AM EDT) Anatomical Region Laterality Modality Body Computed Tomogra phy 07/29/2025 2:15 AM EDT Impressions 07/29/2025 2:15 AM EDT Acute diverticulitis junction of descending and sigmoid colon. This document has been electronically signed by: Orville Mercado MD on 07/29/2025 02:15:27 Narrative 07/29/2025 2:15 AM EDT INDICATION: LLQ pain, possible diverticulitis CT abdomen and pelvis with IV contrast. Comparison: None provided. Findings: No free air. No solid liver mass. Fatty infiltration. No calcified gallstones. No clinically significant biliary ductal dilation. No splenomegaly or suspicious splenic lesions. No solid or cystic pancreatic mass. No pancreatic ductal dilation. No acute inflammatory changes. Adrenal glands without nodule. No suspicious renal mass. No hydronephrosis. No significant stranding. Bladder without acute pathology. No bowel obstruction. Short segment prominent mucosal thickening with adjacent fluid and fat stranding distal descending/proximal sigmoid colon consistent with acute diverticulitis. No adenopathy. No abdominal aortic aneurysm. No suspicious pelvic masses. No acute soft tissue pathology. No acute osseous pathology. Degenerative changes. Procedure Note Orville Mercado MD - 07/29/2025 INDICATION: LLQ pain, possible diverticulitis CT abdomen and pelvis with IV contrast. Comparison: None provided. Findings: No free air. No solid liver mass. Fatty infiltration. No calcified gallstones. No clinically significant biliary ductal dilation. No splenomegaly or suspicious splenic lesions. No solid or cystic pancreatic mass. No pancreatic ductal dilation. No acute inflammatory changes. Adrenal glands without nodule. No suspicious renal mass. No hydronephrosis. No significant stranding. Bladder without acute pathology. No bowel obstruction. Short segment prominent mucosal thickening with adjacent fluid and fat stranding distal descending/proximal sigmoidcolon consistent with acute diverticulitis. No adenopathy. No abdominal aortic aneurysm. No suspicious pelvic masses. No acute soft tissue pathology. No acute osseous pathology. Degenerative changes. IMPRESSION: Acute diverticulitis junction of descending and sigmoid colon. This document has been electronically signed by: Orville Mercado MD on 07/29/2025 02:15:27 Angelica Rushing MD [facility] PROCEDURES Final Result * (ABNORMAL) CBC auto differential (07/28/2025 8:37 PM EDT) WBC 10.6 4.8 - 10.8 /[facility] LAB HEMETOLOGY METHOD 07/28/2025 9:15 PM EDT [facility] RBC 4.40(L) 4.50 - 5.50 M/mcL LAB HEMETOLOGY METHOD 07/28/2025 9:15 PM EDT [facility] Hemoglobin 13.3(L) 13.5 - 17.5 g/dL LAB HEMETOLOGY METHOD 07/28/2025 9:15 PM EDT [facility] Hematocrit 38.7(L) 42.0 - 54.0 % LAB HEMETOLOGY METHOD 07/28/2025 9:15 PM EDT [facility] MCV 87.8 79.0 - 98.0 FL LAB HEMETOLOGY METHOD 07/28/2025 9:15 PM EDT [facility] MCH 30.2 27.0 - 32.0 pcg LAB HEMETOLOGY [facility] MCHC 34.4 32.0 - 37.0 g/dL LAB HEMETOLOGY METHOD 07/28/2025 9:15 PM EDT [facility] RDW 13.0 11.0 - 15.0 % LAB HEMETOLOGY METHOD 07/28/2025 9:15 PM EDT [facility] Platelets 196 130 - 400 K/mcL LAB HEMETOLOGY METHOD [facility]/28[facility]2025 [facility] MPV 10.1 7.0 - 11.0 FL LAB HEMETOLOGY METHOD 07/28/2025 9:15 PM EDT [facility] NRBC 0.0 <1.0 % LAB HEMETOLOGY METHOD 07/28/2025 9:15 PM EDT [facility] NRBC Absolute 0.00 <0.10 K/mcL LAB HEMETOLOGY METHOD [facility]/28[facility]2025 [facility] Neutrophils Relative 65.5 % LAB HEMETOLOGY METHOD 07/28/2025 9:15 PM EDT [facility] Lymphocytes Relative 21.0 % LAB HEMETOLOGY METHOD 07/28/2025 9:15 PM EDT [facility] Monocytes Relative 10.5 % LAB HEMETOLOGY METHOD 07/28/2025 9:15 PM EDT [facility] Eosinophils Relative 2.3 % LAB HEMETOLOGY METHOD 07/28/2025 9:15 PM EDT [facility] Basophils Relative 0.3 % LAB HEMETOLOGY METHOD 07/28/2025 9:15 PM EDT [facility] Immature Granulocytes Relative 0.4 % LAB HEMETOLOGY METHOD 07/28/2025 9:15 PM EDT [facility] Neutrophils Absolute 6.92 1.50 - 7.00 K/mcL LAB HEMETOLOGY METHOD 07/28/2025 9:15 PM EDT [facility] Lymphocytes Absolute 2.22 1.00 - 5.00 K/mcL LAB HEMETOLOGY METHOD 07/28/2025 9:15 PM EDT [facility] Monocytes Absolute 1.11(H) 0.20 - 1.00 K/mcL LAB HEMETOLOGY METHOD 07/28/2025 9:15 PM EDT [facility] Eosinophils Absolute 0.24 0.00 - 0.50 K/mcL LAB HEMETOLOGY METHOD 07/28/2025 9:15 PM EDT [facility] Basophils Absolute 0.03 0.00 - 0.20 K/mcL LAB HEMETOLOGY METHOD 07/28/2025 9:15 PM EDT [facility] Immature Granulocytes Absolute 0.04(H) 0.00 - 0.03 K/mcL LAB HEMETOLOGY METHOD 07/28/2025 9:15 PM T [facility] Blood Venous blood specimen / Unknown Venipuncture / Unknown 07/28/2025 8:37 PM EDT 07/28/2025 9:10 PM EDT us Angelica Rushing MD LAB BLOOD ORDERABLES Final Resul t Performing Organization Address City/[facility]/ZIP Co de Phone Number [facility] [address] [place] [address], [place] [phone] * Lipase (07/28/2025 8:37 PM EDT) Lipase 50 13 - 75 unit/L LAB CHEMISTRY METHOD 07/28/2025 9:37 PM EDT [facility] Blood Venous blood specimen / Unknown Venipuncture / Unknown 07/28/2025 8:37 PM EDT 07/28/2025 9:10 PM EDT us Angelica Rushing MD LAB BLOOD ORDERABLES Final Resul t Performing Organization Address [facility] Co de Phone Number [facility] [address] [place] [address], [place] [phone] * Comprehensive metabolic panel (07/28/2025 8:37 PM EDT) Pathologist [facility] Sodium 137 133 - 145 mmol/L LAB CHEMISTRY METHOD 07/28/2025 9:37 PM T [facility] Potassium 3.8 3.5 - 5.5 mmol/L LAB CHEMISTRY METHOD 07/28/2025 9:37 PM [facility] Chloride 103 96 - 110 mmol/L LAB CHEMISTRY METHOD 07/28/2025 9:37 PM EDT [facility] CO2 29 21 - 32 mmol/L LAB CHEMISTRY METHOD 07/28/2025 9:37 PM [facility] Anion Gap 5 3 - 11 LAB CHEMISTRY METHOD 07/28/2025 9:37 PM [facility] Glucose 98 70 - 100 mg/dL LAB CHEMISTRY METHOD 07/28[facility]2025 9:[facility] BUN 19 5 - 25 mg/dL LAB CHEMISTRY METHOD 07/28/2025 9:37 PM EDT [facility] Creatinine 1.17 0.70 - 1.30 mg/dL LAB CHEMISTRY METHOD 07/28/2025 9:37 PM [facility] eGFR 71 >=60 mL/min/1. 73m2 LAB CHEMISTRY METHOD 07/28/2025 9:37 PM [facility] Comment:Calculation based on the Chronic Kidney Disease Epidemiology Collaboration (CKD-EPI) equation refit without adjustment for race. BUN/Creatinine Ratio 16.2 LAB CHEMISTRY METHOD 07/28/2025 9:37 PM T [facility] Calcium 9.1 8.5 - 10.5 mg/dL LAB CHEMISTRY METHOD 07/28/2025 9:37 PM [facility] AST (SGOT) 17 10 - 42 unit/L LAB CHEMISTRY METHOD 07/28/2025 9:37 PM [facility] ALT (SGPT) 30 10 - 60 unit/L LAB CHEMISTRY METHOD 07/28/2025 9:37 PM [facility] Alkaline Phosphatase 59 42 - 121 unit/L LAB CHEMISTRY METHOD 07/28/2025 9:37 PM [facility] Total Protein 6.9 6.0 - 8.0 g/dL LAB CHEMISTRY METHOD 07/28/2025 9:37 PM [facility] Albumin 3.9 3.2 - 5.0 g/dL LAB CHEMISTRY METHOD 07/28/2025 9:37 PM [facility] Total Bilirubin 0.4 0.0 - 1.4 mg/dL LAB CHEMISTRY METHOD 07/28/2025 9:37 PM [facility] Blood Venous blood specimen / Unknown Venipuncture / Unknown 07/28/2025 8:37 PM EDT 07/28/2025 9:10 PM EDT us Angelica Rushing MD LAB BLOOD ORDERABLES Final Resul t [facility] [address] [place] [address], [place] [phone] from Last 3 Months Insurance [facility] Care Teams Spooling Operator Relationship Specialty Start Date End Date Nayeli Feliz MD [address] [facility] [place] [address] PCP - General Internal Medicine 07/29/25
--- OUTSIDE RECORDS SUMMARY | 2025-08-07 13:37 | XMS_ITS | Clinical Summary ---
Author Organization [facility] Address [address] [employer] [facility] [address] [place] [address] Phone Care Team Providers Care Technology Project Manager Name Role Phone Nayeli Feliz MD Primary Care Provider [phone] Allergies Active Allergy Reactions Criticality Noted Date Comments Nsaids (Non-Steroidal Anti-I nflammatory Drug) GI Upset 02/01/2024 Medications mirtazapine (REMERON) 7.5 MG tablet Take 7.5 mg by mouth nightly at bedtime. Active gabapentin (NEURONTIN) 100 MG capsule Take 100 mg by mouth 3 (three) times a day. Active atorvastatin (LIPITOR) 10 MG tablet Take 10 mg by mouth daily. Active azithromycin (ZITHROMAX) 500 MG tablet Take 1 tablet (500 mg total) by mouth daily. Take only for severe diarrhea (blood / fever). 3 tablet 02/01/2024 Active Immunizations Immunization Administration Dates Next Due Anthrax 11/15/2003, 3,10/29/1999,04/16,04/02/1999,03/16/1999 COVID-19 (Pre-07/31) Moderna Vaccine, Bivalent 6mo+ 06/19/2022 COVID-19 Moderna Spikevax Vaccine 12+ 10/21/2021 ,12/04/2020,11/03/2020 Cholera, unspecified formulation 01/11/1992 Hepatitis A, Adult 05/17/1997,11/09/1996 Hepatitis B Adult 12/13/1992 INFLUENZA, SPLIT VIRUS, TRIVALENT PF 08/14/2016, 07/12/2015,07/22/2012 INFLUENZA, SPLIT VIRUS, TRIV ALENT W/ PRESERVATIVE IM 06/21/2021,07/07/2014,06/04/2011,07/24 Ig, Unspecified Formulation 02/11/1995 Influenza Nasal, Unspecified Formulation 08/27/2009,10/16/2004,11/01/2003 Influenza Quadrivalent MDCK Preservative Free IM 07/11/2022,08/15/2020,08/13/2017 Influenza Quadrivalent Prese rvative Free IM 05/19/2023,05/23/2022,06/05/2020,07/17,06/16/2018,08/09/2014,06/04/2011 Influenza Quadrivalent w/ Pr eservative IM 07/17/2019,07/11/2016 Influenza, Injectable,abel valent, Preservative Free, Ped 06/24/2021,07/17/2019 Influenza, Unspecified Formulation 06/14,08/13/2017,07/27/2013,07/24,08/23/2008,09/03/2007,09/10/2006 ,08/16/2005,08/15/2005,08/05/2003,12/0 11/2001,09/09/2002,09/08/2001, 1,07/10/1999,07/29/1998,08/16/1997, MMR 09/01/1998,01/22/1987 Meningococcal MPSV4 12/09/2002,11/09/1996 Novel [id number], Injectable 12/02/2009,0 12/01/2009 PPD Test 11/15/2003, 2,01/13/2001,08/15,03/17/1999 Pneumococcal polysaccharide PPSV23 09/23/2002 Polio - OPV 06/24/1988 Td, unspecified formulation 10/09/2000, 9,06/24/1988 Tdap 05/12/2019,04/18/2009 Typhoid, ViCPs 02/01/2024 Typhoid, parenteral 03/11/2006,04/18/2004 Typhoid, unspecified formulation 02/14/2018,10/0 02/2008 Typhoid,oral 03/16/1999 Typhoid,parenteral, AKD (US ) 09/10/1995 Vaccinia (Smallpox) Diluted 12/09/2002 Yellow Fever 09/14/2002,09/15/1991 Zoster live 06/16/2018,01/12/2018 Zoster recombinant 01/12/2018 Social History Tobacco Use Types Packs/Day Years Used Date Smoking Tobacco: Never Smokeless Tobacco: Never Tobacco Cessation:Counseling Given: Not Answered Education Answer Date Recorded Are you interested in more education? Not on arnaldo e 02/04/2023 Are you concerned about learning? Not on file 02/04/2023 No 02/04/2023 No 02/04/2023 Digital Access Answer Date Recorded No 03/07/2023 No 03/07/2023 Reliable internet access at home? Not on file 03/07/2023 Device with a working camera? Not on file Sex and Gender Information Value Date Recorded Sex Assigned at Male 02/05/2024 10:40 AM EDT Legal Sex Male 10:49 AM EDT Gender Identity Male 02/05/2024 10:40 AM EDT Sexual Orientation Not on file Last Filed Vital Signs Vital Sign Reading Time Taken Comments Blood Pressure 110/68 02/01/2024 9:45 AM EDT Pulse 66 02/01/2024 9:45 AM EDT Temperature 36.9 C (98.5 F) 02/01/2024 9:45 AM EDT Respiratory Rate - - Oxygen Saturation 97% 02/01/2024 9:45 AM EDT Inhaled Oxygen Concentration - - Weight 83.9 kg (185 lb) 02/01/2024 9:45 AM EDT Height 180.3 cm (5' 11 ) 08/10/2023 9:55 AM EDT Body Mass Index 25.8 08/10/2023 9:55 AM EDT Plan of Treatment Health Maintenance Due Date Last Done Comments LIPID PANEL 1963 DEPRESSION SCREENING 1975 HEPATITIS C SCREENING 1981 HIV ONE-TIME SCREENING (18-65 YEARS) 1981 COLOGUARD 2008 COLONOSCOPY 2008 COLORECTAL CANCER SCREENING 2008 FIT TEST 2008 FOBT 2008 SIGMOIDOSCOPY 2008 VIRTUAL COLONOSCOPY 2008 PNEUMOCOCCAL VACCINES (50+ years) (2 of 2 - PCV) 2013 09/23/2002 ZOSTER VACCINES (3 of 3) 08/11/2018 018, 01/12/2018, 01/12/2018 INFLUENZA VACCINE (#1) 2025 , 07/11/2022, 05/23/2022, Additional history exists COVID-19 VACCINE (2024- season) 2025 07/24/2023, 06/01/2023, 01/05/2023, Additional history exists SCREENING FOR DIABETES 08/10/2026 08/10/2023 Adult Td,Tdap Booster 05/12/2029 05/12/2019 , 04/18/2009, 10/09/2000, Additional history exists RSV VACCINE (1 - 1-dose 75+ series) 2038 HEPATITIS A VACCINES Aged Out 05/17/1997, 11/09/18 97 No longer eligible based on patient's age to complete this topic MENINGOCOCCAL VACCINES (ACWY) Aged Out 12/09/2002, 11/09/1996 No longer eligibl e based on patient's age to complete this topic SMOKING STATUS SCREENING (Once After 26 Yrs) Completed 02/01/2024 HIB VACCINES Aged Out No longer eligi ble based on patient's age to complete this topic MENINGOCOCCAL VACCINES (B) Aged Out N o longer eligible based on patient's age to complete this topic Medical Devices Not on file Insurance [address] [place] [address] [facility] FEDERAL Subscriber Plan / Payer ( fective 2015-Present) Name:Roc Mesa Relation to Subscriber:Self Name:Roc Mesa Payer ID:[id number] (NAIC) Group ID:[id number] Type:PPO Address: [address] [facility] Member Subscriber Plan / Payer (Ef fective 2015-Present) Name:Roc Mesa Relation to Subscriber:Self Name:Roc Mesa Payer ID:[id number] (NAIC) Group ID:[id number] Type:PPO Address: [address] [place] [id number] Care Teams Technology Project Manager Relationship Specialty Start Date End Date Nayeli Feliz MD [address] [place] [address] PCP - General Internal Medicine 12/21/22 Additional Source Comments The information contained in this document represents components of the legal health record. It is not the complete legal health record.[facility]
--- OUTSIDE RECORDS SUMMARY | 2025-08-07 13:37 | XMS_ITS | Encounter Summary ---
Author Organization [facility] Address [address] [place] [address] Care Team Providers Care Group Fitness Assistant Department Head Name Role Phone Pcp, No Primary Care Provider Unavailabl e Reason for Referral * Imaging (Routine) - Closed Specialty Diagnoses / Procedures Referred By Contac t Referred To Contact Radiology Diagnoses Acute sinusitis, unspecified Procedures XR PARANASAL SINUSES 1-2 VIEWS Mary Carrero PA-C [address] [place] [phone] Phone: tel: fax: [facility] Radiology - Central Scheduling [place] Phone: tel: fax: Referral ID Status Reason Start Date Expiration Date V isits Requested Visits Authorized [id number] Closed Perform Procedure 01/01/2024 12/31/2024 1 1 Encounter Details Date Type Department Care Team (Late st Contact Info) Description 01/01/2024 Ancillary Orders [facility] Radiology, Outpatient Center (Diag Rad) [address] [place], [place] [address] Mary Carrero PA-C [address] [place] [phone] Acute sinusitis, unspecified (Primary Dx) Social [...] unspecified documented in this encounter Care Teams Group Fitness Assistant Department Head Relationship Specialty Start Date End Date Pcp, No [place] [address] PCP - General 01/01/24 documented as of this encounter
--- OUTSIDE RECORDS SUMMARY | 2025-08-07 13:37 | XMS_ITS | Clinical Summary ---
Author Organization [facility] Address [address] [place] [address] Care Team Providers Care Rivet Sorter Name Role Phone Pcp, No Primary Care [...] this topic Insurance [employer] Care Teams Rivet Sorter Relationship Specialty Start Date End Date Pcp, [place] [address] PCP - General 01/01/24
--- OUTSIDE RECORDS SUMMARY | 2025-08-07 13:37 | XMS_ITS | Patient Health Record ---
Author Organization [facility] Address [address] [place] [address] Care Team Providers Care Chief Yeoman Name Role Phone [facility]il[facility] BASS, [facility] Primary Care Provider Chato Carter Jr [...] Status Risk Notes Problem Colon cancer screening (673705615) Colon cancer screening (V76.51) Active confirmed Plan Of Treatment Future Test Test Name Order Date COLONOSCOPY 12/17/2014 Insurance Providers Payer Name Payer Address Payer Phone Subscriber Number Group Number Insured Name Patient Relationship to Insured Coverage Start Date Coverage End Date [facility] [address] [place], [place] [id number] BRENDA ALMENDAREZ Self - patient is the insured Medical (General) History Medical History History ICD Code bladder cancer hepatitis A (back in 1988) Denies [place],DM,CVA,Lung disease,renal dise ase Surgical History Surgery Date(Month/Year) appendectomy bladder tumor removed repair of rectal fistula
--- OUTSIDE RECORDS SUMMARY | 2025-08-07 13:37 | XMS_ITS | Encounter Summary ---
Author Organization [facility] Address [address] [place] [address] Care Team Providers Care Knock Out Hand Name Role Phone Pcp, No Primary Care Provider Unavailabl e Reason for Referral * Imaging (Routine) - Closed Specialty Diagnoses / Procedures Referred By Contac t Referred To Contact Radiology Diagnoses Pain in left ankle and joints of left foot Procedures XR ANKLE 2 VIEWS LEFT Mary Carrero PA-C [address] [place] [phone] Phone: tel: fax: [facility] Radiology - Central Scheduling CT Phone: tel: fax: Referral ID Status Reason Start Date Expiration Date V isits Requested Visits Authorized [id number] Closed Perform Procedure 01/01/2024 12/31/2024 1 1 Encounter Details Date Type Department Care Team ([facility] st Contact Info) Description 01/01/2024 Ancillary Orders [facility] Radiology, Outpatient Center (Diag Rad) [address] [place], [place] [address] Mary Carrero PA-C [address] [place] [phone] Pain in left ankle and joints [...] foot documented in this encounter Care Teams Knock Out Hand Relationship Specialty Start Date End Date Pcp, No [place] [address] PCP - General 3/25/24 documented as of this encounter
== END 2025-08-07 12:16 | disposition home or self-care (01) ==
LOC: HO.HSMS 10:55
PROVIDERS: PCP Internal Medicine; Visit Provider Physician Assistant Medical
DX: G47.33 Obstructive sleep apnea (adult) (pediatric) (principal); R35.1 Nocturia
CPT/HCPCS: 99214

== ENCOUNTER → 2025-08-07 10:54 | Outpatient (BNVA) | payer OTHER, SELFPAY | PROVIDERS: PCP Internal Medicine; Visit Provider Physician Assistant Medical | DX: G47.33 Obstructive sleep apnea (adult) (pediatric) (principal); G47.34 Idiopathic sleep related nonobstructive alveolar hypoventilation; R35.1 Nocturia | CPT/HCPCS: 99212 ==

== ENCOUNTER 2025-08-19 15:20 | Outpatient (REF) | payer OTHER, SELFPAY ==
--- OUTSIDE RECORDS SUMMARY | 2025-08-20 06:56 | XMS_ITS | Encounter Summary ---
Author Organization [facility] Address [address] [place] [address] Care Team Providers Care Telemetry Registered Nurse Name Role Phone Pcp, No Primary Care Provider Unavailabl e Reason for Referral * Imaging (Routine) - Closed Specialty Diagnoses / Procedures Referred By Contac t Referred To Contact Radiology Diagnoses Acute sinusitis, unspecified Procedures XR PARANASAL SINUSES 1-2 VIEWS Mary Carrero PA-C [address] [place] [phone] Phone: tel: fax: [facility] Radiology - Central Scheduling CT Phone: tel: fax: Referral ID Status Reason Start Date Expiration Date V isits Requested Visits Authorized [id number] Closed Perform Procedure 01/01/2024 12/31/2024 1 1 Encounter Details Date Type Department Care Team (Late st Contact Info) Description 01/01/2024 Ancillary Orders [facility] Radiology, Outpatient Center (Diag Rad) [address] [place], [place] [address] Mary Carrero PA-C [address] [place] [phone] Acute sinusitis, unspecified (Primary Dx) Social [...] unspecified documented in this encounter Care Teams Telemetry Registered Nurse Relationship Specialty Start Date End Date Pcp, No [place] [address] PCP - General 01/01/24 documented as of this encounter
--- OUTSIDE RECORDS SUMMARY | 2025-08-20 06:56 | XMS_ITS | Patient Health Record ---
Author Organization [facility] Address [address] [place] [address] Care Team Providers Care Sales Representative Malt [employer] Name Role Phone Guilherme BASS, [facility] Primary Care Provider Chato Carter Jr [...] Status Risk Notes Problem Colon cancer screening ([id number]) Colon cancer screening (V76.51) Active confirmed Plan Of Treatment Future Test Test Name Order Date COLONOSCOPY 12/17/2014 Insurance Providers Payer Name Payer Address Payer Phone Subscriber Number Group Number Insured Name Patient Relationship to Insured Coverage Start Date Coverage End Date [facility] [address] [place], [place] [id number] BRENDA ALMENDAREZ Self - patient is the insured Medical (General) History Medical History History ICD Code bladder cancer hepatitis A (back in 1988) Denies [place],DM,CVA,Lung disease,renal dise ase Surgical History Surgery Date(Month/Year) appendectomy bladder tumor removed repair of rectal fistula
--- OUTSIDE RECORDS SUMMARY | 2025-08-20 06:56 | XMS_ITS | Clinical Summary ---
Author Organization [facility] Address [address] [place] [address] Care Team Providers Care Side Laster Staple Name Role Phone Pcp, No Primary Care [...] this topic Insurance [employer] Care Teams Side Laster Staple Relationship Specialty Start Date End Date Pcp, No [place] [address] PCP - General 01/01/24
--- OUTSIDE RECORDS SUMMARY | 2025-08-20 06:56 | XMS_ITS | Encounter Summary ---
Author Organization [facility] Address [address] [place] [address] Care Team Providers Care Trolley Collector Name Role Phone Pcp, No Primary Care Provider Unavailabl e Reason for Referral * Imaging (Routine) - Closed Specialty Diagnoses / Procedures Referred By Contac t Referred To Contact Radiology Diagnoses Pain in left ankle and joints of left foot Procedures XR ANKLE 2 VIEWS LEFT Mary Carrero PA-C [address] [place] [phone] Phone: tel: fax: [facility] Radiology - Central Scheduling CT Phone: tel: fax: Referral ID Status Reason Start Date Expiration Date V isits Requested Visits Authorized [id number] Closed Perform Procedure 01/01/2024 12/31/2024 1 1 Encounter Details Date Type Department Care Team ([facility] st Contact Info) Description 01/01/2024 Ancillary Orders [facility] Radiology, Outpatient Center (Diag Rad) [address] [place], [place] [address] Mary Carrero PA-C [address] [place] [phone] Pain in left ankle and joints [...] foot documented in this encounter Care Teams Trolley Collector Relationship Specialty Start Date End Date Pcp, No [place] [address] PCP - General 3/25/24 documented as of this encounter
--- OUTSIDE RECORDS SUMMARY | 2025-08-20 06:56 | XMS_ITS | Clinical Summary ---
Author Organization [facility] Address [address] [place] [address] Phone Care Team Providers Care Operating System Programmer Name Role Phone Nayeli Feliz MD Primary Care Provider [phone] Allergies Active Allergy Reactions Criticality Noted Date [...] EDT - 07/29/2025 3:07 AM EDT Emergency [facility] Emergency [address] [place] [address] Angelica Rushing MD Land[place], Jonathan [...] on file Sexual Orientation Not on file Obstetrics History Last Filed Vital Signs Vital [...] 01/12/2018 Depression Screening 10/09/2024 COVID-19 Vaccine ( season) 2025 07/03/2024, 04/24/2024, 07/24/2023, Additional history exists Cholesterol Screening (Lipid Panel) 07/28/2025 HIV Screening [...] to complete this topic Hepatitis A Vaccines Completed 08/22/2024, 03/07/2024, 02/06/2024, [...] MD on 07/29/2025 02:15:27 Angelica Rushing MD [facility] CT PROCEDURES Final Result * (ABNORMAL) CBC auto differential (07/28/2025 8:37 PM EDT) WBC 10.6 4.8 - 10.8 K/[facility] LAB HEMETOLOGY METHOD 07/28/2025 9:15 PM EDT [facility] RBC 4.40(L) 4.50 - 5.50 M/mcL LAB HEMETOLOGY METHOD 07/28/2025 9:15 PM EDT [facility] Hemoglobin 13.3(L) 13.5 - 17.5 g/dL LAB HEMETOLOGY METHOD 07/28/2025 9:15 PM EDT [facility] Hematocrit 38.7(L) 42.0 - 54.0 % LAB HEMETOLOGY METHOD 07/28/2025 9:15 PM EDT [facility] MCV 87.8 79.0 - 98.0 FL LAB HEMETOLOGY METHOD 07/28/2025 9:15 PM EDT [facility] MCH 30.2 27.0 - 32.0 pcg LAB HEMETOLOGY METHOD 07/28/2025 9:[facility] MCHC 34.4 32.0 - 37.0 g/dL LAB HEMETOLOGY METHOD 07/28/2025 9:15 PM EDT [facility] RDW 13.0 11.0 - 15.0 % LAB HEMETOLOGY METHOD 07/28/2025 9:15 PM EDT [facility] Platelets 196 130 - 400 K/mcL LAB HEMETOLOGY METHOD 07/28/2025 9:15 PM [facility] MPV 10.1 7.0 - 11.0 FL LAB HEMETOLOGY METHOD 07/28/2025 9:15 PM EDT [facility] NRBC 0.0 <1.0 % LAB HEMETOLOGY METHOD 07/28/2025 9:15 PM EDT [facility] NRBC Absolute 0.00 <0.10 K/mcL LAB HEMETOLOGY METHOD 07/28/2025 9:15 PM EDT [facility] Neutrophils Relative 65.5 % LAB HEMETOLOGY METHOD 07/28/2025 9:15 PM EDT [facility] Lymphocytes Relative 21.0 % LAB HEMETOLOGY METHOD 07/28/2025 9:15 PM EDT [facility] Monocytes Relative 10.5 % LAB HEMETOLOGY METHOD 07/28/2025 9:15 PM EDT [facility] Eosinophils Relative 2.3 % LAB HEMETOLOGY METHOD 07/28/2025 9:15 PM EDT [facility] Basophils Relative 0.3 % LAB HEMETOLOGY METHOD 07/28/2025 9:15 PM EDT [facility] Immature Granulocytes Relative 0.4 % LAB HEMETOLOGY METHOD 07/28/2025 9:15 PM EDT [facility] Neutrophils Absolute 6.92 1.50 - 7.00 K/mcL LAB HEMETOLOGY METHOD 07/28/2025 9:15 PM EDT [facility] Lymphocytes Absolute 2.22 1.00 - 5.00 K/mcL LAB HEMETOLOGY METHOD 07/28/2025 9:15 PM EDT [facility] Monocytes Absolute 1.11(H) 0.20 - 1.00 K/mcL LAB HEMETOLOGY METHOD 07/28/2025 9:15 PM EDT [facility] Eosinophils Absolute 0.24 0.00 - 0.50 K/mcL LAB HEMETOLOGY METHOD 07/28/2025 9:15 PM EDT [facility] Basophils Absolute 0.03 0.00 - 0.20 K/mcL LAB HEMETOLOGY METHOD 07/28/2025 9:15 PM EDT [facility] Immature Granulocytes Absolute 0.04(H) 0.00 - 0.03 K/mcL LAB HEMETOLOGY METHOD 07/28/2025 9:15 PM [facility] Blood Venous blood specimen / Unknown Venipuncture / Unknown 07/28/2025 8:37 PM EDT 07/28/2025 9:10 PM EDT us Angelica Rushing MD LAB BLOOD ORDERABLES Final Resul t Performing Organization Address [facility]/ZIP Co de Phone Number [facility] [address] [place] [address], [place] [phone] * Lipase (07/28/2025 8:37 PM EDT) Pathologist [facility] Lipase 50 13 - 75 unit/L LAB CHEMISTRY METHOD 07/28/2025 9:37 PM EDT [facility] Blood Venous blood specimen / Unknown Venipuncture / Unknown 07/28/2025 8:37 PM EDT 07/28/2025 9:10 PM EDT us Angelica Rushing MD LAB BLOOD ORDERABLES Final Resul t Performing Organization Address [facility] Co de Phone Number [facility] [address] [place] [address], [place] [phone] * Comprehensive metabolic panel (07/28/2025 8:37 PM EDT) Pathologist [facility] Sodium 137 133 - 145 mmol/L LAB CHEMISTRY METHOD 07/28/2025 9:37 PM T [facility] Potassium 3.8 3.5 - 5.5 mmol/L LAB CHEMISTRY METHOD 07/28/2025 9:37 PM [facility] Chloride 103 96 - 110 mmol/L LAB CHEMISTRY METHOD 07/28/2025 9:37 PM EDT [facility] CO2 29 21 - 32 mmol/L LAB CHEMISTRY METHOD 07/28/2025 9:37 PM T [facility] Anion Gap 5 3 - 11 LAB CHEMISTRY METHOD 07/28/2025 9:37 PM [facility] Glucose 98 70 - 100 mg/dL LAB CHEMISTRY METHOD 07/28/2025 9:37 [facility] BUN 19 5 - 25 mg/dL LAB CHEMISTRY METHOD 07/28/2025 9:37 PM EDT [facility] Creatinine 1.17 0.70 - 1.30 mg/dL LAB CHEMISTRY METHOD 07/28/2025 9:37 PM EDT [facility] eGFR 71 >=60 mL/min/1. 73m2 LAB CHEMISTRY METHOD 07/28/2025 9:37 PM EDT [facility] Comment:Calculation based on the Chronic Kidney Disease Epidemiology Collaboration (CKD-EPI) equation refit without adjustment for race. BUN/Creatinine Ratio 16.2 LAB CHEMISTRY METHOD 07/28/2025 9:37 PM EDT [facility] Calcium 9.1 8.5 - 10.5 mg/dL LAB CHEMISTRY METHOD 07/28/2025 9:37 PM T [facility] AST (SGOT) 17 10 - 42 unit/L LAB CHEMISTRY METHOD 07/28/2025 9:37 PM [facility] ALT (SGPT) 30 10 - 60 unit/L LAB CHEMISTRY METHOD 07/28/2025 9:37 PM T [facility] Alkaline Phosphatase 59 42 - 121 unit/L LAB CHEMISTRY METHOD 07/28/2025 9:37 PM T [facility] Total Protein 6.9 6.0 - 8.0 g/dL LAB CHEMISTRY METHOD 07/28/2025 9:37 PM [facility] Albumin 3.9 3.2 - 5.0 g/dL LAB CHEMISTRY METHOD 07/28/2025 9:37 PM [facility] Total Bilirubin 0.4 0.0 - 1.4 mg/dL LAB CHEMISTRY METHOD 07/28/2025 9:37 PM [facility] Blood Venous blood specimen / Unknown Venipuncture / Unknown 07/28/2025 8:37 PM EDT 07/28/2025 9:10 PM EDT us Angelica Rushing MD LAB BLOOD ORDERABLES Final Resul t [facility]) [facility] LAB [address] [place] [address], [place] [phone] from Last 3 Months Insurance [facility] Care Teams Operating System Programmer Relationship Specialty Start Date End Date Nayeli Feliz MD [address] [place] [address] PCP - General Internal Medicine 07/29/25
--- OUTSIDE RECORDS SUMMARY | 2025-08-20 06:56 | XMS_ITS | Clinical Summary ---
Author Organization [facility] Address [address] [facility] [address] [place] [address] Phone Care Team Providers Care Budget Director Name Role Phone Nayeli Feliz MD Primary Care Provider [phone] Allergies Active Allergy Reactions Criticality Noted Date [...] 1,07/10/1999,07/29/1998,08/16/1997, MMR 09/01/1998,01/22/1987 Meningococcal MPSV4 12/09/2002,11/09/1996 Novel [id number], Injectable 12/02/2009,0 12/01/2009 PPD Test 11/15/2003, 2,01/13/2001,08/15,03/17/1999 [...] 1981 HIV ONE-TIME SCREENING (18-65 YEARS) 1981 IPV VACCINES (2 of 3 - Adult catch-up series) 07/22/1988 06/24/1988 COLOGUARD 2008 COLONOSCOPY 2008 COLORECTAL CANCER SCREENING 2008 FIT TEST 2008 FOBT 2008 SIGMOIDOSCOPY 2008 VIRTUAL COLONOSCOPY 2008 PNEUMOCOCCAL VACCINES (50+ years) (2 of 2 - PCV) 2013 09/23/2002 ZOSTER VACCINES (3 of 3) 08/11/2018 018, 01/12/2018, 01/12/2018 INFLUENZA VACCINE (#1) 2025 3, 07/11/2022, 05/23/2022, Additional history exists COVID-19 VACCINE [...] topic Medical Devices Not on file Insurance [address] [place] [address] [place] [employer] [facility] Care Teams Budget Director Relationship Specialty Start Date End Date Nayeli Feliz MD [address] [place] [address] PCP - General Internal Medicine 12/21/22 Additional Source Comments The information contained in this document represents components of the legal health record. It is not the complete legal health record.[facility]
[2025-08-20 12:29] LABS: CDiff Gene PCR NEGATIVE (Negative)
== END 2025-08-19 15:21 | disposition home or self-care (01) ==
LOC: HO.HMGCLNP 15:20
PROVIDERS: PCP Internal Medicine; Visit Provider Internal Medicine
DX: R19.7 Diarrhea, unspecified (principal)
CPT/HCPCS: 87493